=== PATIENT | female | born 1940 | race Caucasian/White ===

== ENCOUNTER → 2016-04-25 | Outpatient (CLI) | payer OTHER ==
[~2016-04-25] MED LIST: AML/5 PO; CHOL100010 PO; LOSA1TAB38 PO; NIFE90TA34 PO; TAMO20TA47 PO; Tumeric PO
[2016-04-25 12:44] VITALS: BP 130/75; PULSE 68; TEMP 36.9; O2SAT 97
--- NOTE | 2016-04-25 14:39 | Radiation Oncology Follow-Up ---
Radiation Oncology Follow-Up Date of Visit Apr 25, 2016. Reason For Visit Annual follow-up Radiation Completion Date 09/21/13 Diagnosis (1) Breast cancer Status: Resolved Onset Date: 05/12/2013 Histology Subtype: ductal Stage: ll Permanent Comment: Abnormal mammogram 05/01/2013 left breast Status post ultrasound-guided biopsies 05/12/2013 revealing invasive carcinoma Estrogen receptor positive, progesterone receptor positive, HER-2/larry negative Status post partial mastectomy and sentinel lymph node biopsy 06/08/2013 Infiltrating ductal carcinoma stage pT1c pN1M0 Status post completion of radiation therapy 09/21/2013 received 6120 cGy Last Edited By: Yasmeen Knapp on Apr 26, 2015 15:45 Interim History She's been doing well over this past year. She denies any changes or breast. She has noticed no masses or tenderness no change of the axilla. She is up-to- date on mammography. She is followed by Dr. Mireles. She has a history of a discharge from the nipple. This has been analyzed with cytology and there were no malignant cells. This is not changed over the past year. Her appetite is good and weight is stable she had a mammogram 06/08/2015. This showed stable mammogram with no specific evidence of malignancy. BI-RADS Category 2. Allergies Coded Allergies: Sulfa Drugs (Verified Allergy, Mild, TOLERATES LASIX, 08/19/14) Statins (Unverified Allergy, Unknown, body aches, 08/19/14) Home Medications Scheduled Amiloride HCl (Amiloride HCl), 2 TABS PO QAM Amiloride HCl (Amiloride HCl), 5 MG PO QPM Cholecalciferol (Vitamin D), 1,000 INTER.UNIT PO DAILY Losartan Potassium (Cozaar), 100 MG PO DAILY Nifedipine (Nifedipine Er), 1 TAB PO DAILY Tamoxifen (Nolvadex), 20 MG PO DAILY [Tumeric], 2 TAB PO DAILY Review of Systems Gastrointestinal: Symptoms: WNL, Rectal Bleeding GI Comments: Constipation manageable at home;Known hemorhroid-spotting Oral: Symptoms: No Problems Respiratory: Symptoms: Dry Cough Other Respiratory: Dry cough every once in awhile; Urinary: Symptoms: WNL Skin: Symptoms: No Problems Breast: Right Upper Arm Measurement: 36.0 Right Mid Arm Measurement: 29.5 Right Wrist Measurement: 18.5 Left Upper Arm Measurement: 34.0 Left Mid Arm Measurement: 28.0 Left Wrist Measurement: 17.5 Arm Dominence: Right Physical Exam Vital Signs Date Time Temp Pulse Resp B/P Pulse Ox O2 Delivery O2 Flow Rate FiO2 04/25/16 12:44 36.9 68 12 130/75 97 Fatigue: None General Appearance: no apparent distress Eyes: normal inspection, EOMI ENT: normal ENT inspection, hearing grossly normal Neck: no adenopathy, thyroid normal Respiratory/Chest: lungs clear, no respiratory distress, no accessory muscle use Breast: Breast examination reveals well-healed incisions of the left breast. There are no masses or tenderness and no axillary adenopathy. There is slight telangiectasia. Using the [place] score cosmesis she has a good outcome. There is a mild indentation due to postoperative deficit in the central portion of the incision. There are no nipple changes. There is no discharge from the nipple currently. The right breast showed no masses or tenderness and no axillary adenopathy. Cardiovascular: regular rate, rhythm, no gallop, + systolic murmur (03/09 at the mitral area) Abdomen: non tender, soft, no organomegaly Extremities: no pedal edema Neurologic/Psychiatric: no motor/sensory deficits, alert, normal mood/affect Skin: warm/dry Lymphatic: no adenopathy Additional Studies Mammogram as reviewed above. Assessment & Plan Plan: Continue annual mammography. Stated that her next mammogram is scheduled for May as well as appointment with Dr. Mireles. I reviewed with her that her last mammogram was 06/08/2015. Her next mammogram therefore should be after June 07. She is going to check into the scheduling of the mammogram and her appointment with Dr. Mireles's office to ensure that her insurance will cover the test. She is also going to be seeing Dr. John Dan and establish with him with him in May. She stated that on her last visit with her PCP she had gotten information that she had some valvular changes that she was unaware of. She is going to review this with Dr. Dan at her visit in May. Total Time In Follow-Up I spent 20 minutes speaking to the patient performing examination. I spent 15 minutes reviewing information in completing this note. Copy To Abdoul Mireles M.D.; Guillard, John,M.D. Problem Qualifiers (1) Breast cancer: Breast location: upper outer quadrant of breast Patient sex: female Laterality: left Qualified Codes: C50.412 - Malignant neoplasm of upper- outer quadrant of left female breast
== END | disposition home or self-care (01) ==
LOC: C.ONC 12:23
PROVIDERS: ATTEND Radiology Radiation Oncology
DX: Z08 Encounter for follow-up examination after completed treatment for malignant neoplasm (principal); Z92.3 Personal history of irradiation; Z85.3 Personal history of malignant neoplasm of breast

== ENCOUNTER → 2016-07-04 | Outpatient (CLI) | payer OTHER ==
[~2016-07-04] MED LIST changes: -TAMO20TA47 PO; +TAMO20TA9 PO
--- NOTE | 2016-07-04 12:57 | DIAGNOSTIC IMAGING REPORT ---
CHEST 2 VIEWS ROUTINE CLINICAL HISTORY: Cough. COMPARISON STUDY: Chest radiograph August 12, 2007. FINDINGS: Left breast surgical clips are noted. No pneumothorax or pleural effusion is identified. There is no consolidation to suggest pneumonia. Borderline cardiomegaly is unchanged. There is no evidence of pulmonary edema. IMPRESSION: No acute cardiopulmonary findings. Electronically signed by: Daniel Shafer M.D. 07/04/2016 12:56 PM Dictated Date/Time: 07/04/2016 12:55 PM
== END | disposition home or self-care (01) ==
LOC: C.RADBC 12:34
PROVIDERS: ATTEND Internal Medicine
DX: R05 Cough (principal)

== ENCOUNTER → 2017-04-30 | Outpatient (CLI) | payer OTHER ==
[2017-04-30 12:43] VITALS: BP 144/82; PULSE 65; TEMP 36.7; O2SAT 95
--- NOTE | 2017-04-30 14:07 | Radiation Oncology Follow-Up ---
Radiation Oncology Follow-Up Date of Visit Apr 30, 2017. Reason For Visit Annual follow-up Radiation Completion Date 09/21/13 Diagnosis (1) Breast cancer Status: Resolved Onset Date: 05/12/2013 Histology Subtype: Ductal Stage: ll Permanent Comment: Abnormal mammogram 05/01/2013 left breast Status post ultrasound-guided biopsies 05/12/2013 revealing invasive carcinoma Estrogen receptor positive, progesterone receptor positive, HER-2/larry negative Status post partial mastectomy and sentinel lymph node biopsy 06/08/2013 Infiltrating ductal carcinoma stage pT1c pN1M0 Status post completion of radiation therapy 09/21/2013 received 6120 cGy Last Edited By: Yasmeen Knapp on Apr 26, 2015 15:45 Interim History She has been doing well over this past year. She has noted no changes to her breasts. She has noted no masses and no change of the axilla. She does have intermittent pain of the left lateral rib area. She has had this for many years. This especially occurred when she leans forward and stretches her arm outward. She has had a history of previous rib fractures. She can have a pain level up to 5. This is intermittent and does not persist. She does not require any [id number] pain medication to relieve this discomfort. Allergies Coded Allergies: Sulfa Drugs (Verified Allergy, Mild, TOLERATES LASIX, 08/19/14) Statins (Unverified Allergy, Unknown, body aches, 08/19/14) Hydrochlorothiazide (Verified Adverse Reaction, Mild, Itchy Rash , 04/30/17 ) Home Medications Scheduled Amiloride HCl (Amiloride HCl), 2 TABS PO QAM Amiloride HCl (Amiloride HCl), 5 MG PO QPM Cholecalciferol (Vitamin D), 1,000 INTER.UNIT PO DAILY Losartan Potassium (Cozaar), 100 MG PO DAILY Nifedipine (Nifedipine Er), 1 TAB PO DAILY Tamoxifen (Nolvadex), 20 MG PO DAILY [Tumeric], 2 TAB PO DAILY Review of Systems Gastrointestinal: Symptoms: WNL GI Comments: Constipation from HCTZ - improving since stopped Oral: Symptoms: No Problems Respiratory: Symptoms: WNL Other Respiratory: Dry cough every once in awhile; Urinary: Symptoms: WNL Skin: Symptoms: No Problems Breast: Right Upper Arm Measurement: 33.7 Right Mid Arm Measurement: 29.0 Right Wrist Measurement: 18.2 Left Upper Arm Measurement: 33.5 Left Mid Arm Measurement: 27.6 Left Wrist Measurement: 17.7 Arm Dominence: Right Physical Exam Vital Signs Date Time Temp Pulse Resp B/P (MAP) Pulse Ox O2 Delivery O2 Flow Rate FiO2 04/30/17 12:43 36.7 65 18 144/82 95 Fatigue: None General Appearance: no apparent distress Eyes: normal inspection, EOMI ENT: normal ENT inspection, hearing grossly normal Neck: no adenopathy, thyroid normal Respiratory/Chest: lungs clear, no respiratory distress, no accessory muscle use Breast: Breast examination reveals well-healed incisions of the left breast. There are no masses. She has mild telangiectasia in the area of the incision. There is very slight tenderness of the left lateral chest along the mid axillary line. There are no masses in this area. There is no erythema or edema. There are no masses of the breast. She has no skin retractions or nipple changes. Using the [place] score cosmesis she has an excellent outcome. The right breast showed no masses or tenderness and no axillary adenopathy. Cardiovascular: regular rate, rhythm, no gallop, no murmur Extremities: no pedal edema Neurologic/Psychiatric: no motor/sensory deficits, alert, normal mood/affect Skin: warm/dry Pain Management Patient Reports Pain: Yes Initial Pain Intensity: 5.0 Pain Management Plan This pain was reviewed see history of present illness. Laboratory Laboratory Results: not applicable Pathology Pathology Results: not applicable Imaging Imaging Studies: were reviewed, and pertinent findings noted below Imaging Comments She had a mammogram at [facility] September 11, 2016. There is no evidence of malignancy. He diagnostic mammogram in 12 months was recommended. This was given a BI-RADS Category 2. Assessment & Plan She had previously followed with Dr. Mireles. She plans to have her mammogram scheduled through Dr. Dan's office. We asked to return to our office in 1 year. She may call if she has any questions or concerns. We discussed stretching exercises to help with the occasional discomfort of the chest wall. She will review this further with Dr. Dan if the pain becomes more persistent. Total Time In Follow-Up I spent 20 minutes speaking to the patient and performing examination. I spent 15 minutes reviewing information and completing this note. Copy To John Dan M.D.
== END | disposition home or self-care (01) ==
LOC: C.ONC 12:31
PROVIDERS: ATTEND Physician Assistant Medical
DX: Z08 Encounter for follow-up examination after completed treatment for malignant neoplasm (principal); Z92.3 Personal history of irradiation; Z85.3 Personal history of malignant neoplasm of breast

== ENCOUNTER → 2017-10-16 | Outpatient (CLI) | payer OTHER ==
[2017-10-16 13:06] LABS: BASO % 0.7 %; BASO ABS # 0.05 K/uL (0-0.2); EOS % 4.2 %; EOS ABS # 0.31 K/uL (0-0.5); HEMATOCRIT 41.3 % (37-47); HEMOGLOBIN 13.9 g/dL (12.0-16.0); IG# 0.11 K/uL (0.00-0.02); LYMPH % 24.2 %; LYMPH ABS # 1.78 K/uL (1.2-3.4); MEAN CORPUSCULAR HGB CONC 33.7 g/dl (32-36); MEAN PLATELET VOLUME 10.3 fL (7.4-10.4); MONO % 5.3 %; MONO ABS # 0.39 K/uL (0.11-0.59); NEUT % 64.1 %; NEUT ABS # 4.72 K/uL (1.4-6.5); PLATELET COUNT 213 K/uL (130-400); RED CELL DISTRIBUTION WIDTH CV 14.2 % (11.5-14.5); RED CELL DISTRIBUTION WIDTH SD 46.6 fL (36.4-46.3); WHITE BLOOD COUNT 7.36 K/uL (4.8-10.8)
[2017-10-16 13:45] LABS: ALBUMIN 3.9 gm/dl (3.4-5.0); ALKALINE PHOSPHATASE 66 U/L (45-117); ALT/SGPT 47 U/L (12-78); AST/SGOT 31 U/L (15-37); BLOOD UREA NITROGEN 24 mg/dl (7-18); CALCIUM 9.3 mg/dl (8.5-10.1); CARBON DIOXIDE 23 mmol/L (21-32); CHOLESTEROL 180 mg/dl (0-200); CREATININE 1.01 mg/dl (0.60-1.20); GLUCOSE 144 mg/dl (70-99); LDL CHOLESTEROL CALCULATED 67 mg/dl; POTASSIUM 4.1 mmol/L (3.5-5.1); SODIUM 139 mmol/L (136-145); TOTAL PROTEIN 7.5 gm/dl (6.4-8.2)
== END | disposition home or self-care (01) ==
LOC: C.LABBC 09:48
PROVIDERS: ATTEND Internal Medicine
DX: I12.9 Hypertensive chronic kidney disease with stage 1 through stage 4 chronic kidney disease, or unspecified chronic kidney disease (principal); E78.5 Hyperlipidemia, unspecified; I34.0 Nonrheumatic mitral (valve) insufficiency; N18.2 Chronic kidney disease, stage 2 (mild); C50.212 Malignant neoplasm of upper-inner quadrant of left female breast; E55.9 Vitamin D deficiency, unspecified

== ENCOUNTER → 2017-10-24 | Outpatient (CLI) | payer OTHER ==
[2017-10-25 05:56] LABS: HEMOGLOBIN A1C 5.6 % (4.5-5.6)
== END | disposition home or self-care (01) ==
LOC: C.LABBC 13:48
PROVIDERS: ATTEND Internal Medicine
DX: R73.09 Other abnormal glucose (principal)

== ENCOUNTER 2018-09-09 02:07 | Inpatient (IN) ==
[2018-09-09] MEDS ORDERED: dilTIAZem HCl 5 MG/ML 5 ML VIAL IV STA ×2 (02:19→03:13)
[2018-09-09] MEDS ORDERED: SODIUM CHLORIDE 0.9% 1000ML 1,000 ML IV SCH (02:30)
[2018-09-09 02:34] LABS: Basophils # (auto) 0.02 K/uL (0-0.2); Basophils % (auto) 0.2 %; Eosinophils # (auto) 0.28 K/uL (0-0.5); Eosinophils % (auto) 3.3 %; Hematocrit (blood only) 42.9 % (37-47); Hemoglobin 14.7 g/dL (12.0-16.0); Immature Granulocytes # (auto) 0.02 K/uL (0.00-0.02); Immature Granulocytes % (auto) 0.2 %; Lymphocytes # (auto) 3.34 K/uL (1.2-3.4); Lymphocytes % (auto) 38.8 %; Mean Corpuscular Hgb Conc 34.3 g/dL (32-36); Mean Corpuscular Volume 88.5 fL (80-100); Mean Platelet Volume 9.7 fL (7.4-10.4); Monocytes # (auto) 0.65 K/uL (0.11-0.59); Monocytes % (auto) 7.5 %; Platelet Count 185 K/uL (130-400); RDW Coefficient of Variation 13.9 % (11.5-14.5); RDW Standard Deviation 45.2 fL (36.4-46.3); Red Blood Count 4.85 M/uL (4.2-5.4); White Blood Count 8.61 K/uL (4.8-10.8)
[2018-09-09 02:45] LABS: INR 1.4 (0.9-1.1); Partial Thromboplastin Ratio 1.5; Partial Thromboplastin Time 40.4 Seconds (21.0-31.0); Prothrombin Time 14.1 Seconds (9.0-12.0)
[2018-09-09 02:57] LABS: Alanine Aminotransferase 40 U/L (12-78); Albumin Level 3.9 gm/dl (3.4-5.0); Aspartate Aminotransferase 25 U/L (15-37); BUN Creatinine Ratio 18.1 (10-20); Blood Urea Nitrogen 16 mg/dl (7-18); Calcium 9.3 mg/dl (8.5-10.1); Carbon Dioxide 25 mmol/L (21-32); Chloride 108 mmol/L (98-107); Creatinine Clr Calc Pharmacy 58.8 ml/min; Est GFR (Non-African American) 63.8; Glucose 101 mg/dl (70-99); Magnesium 2.1 mg/dl (1.8-2.4); Potassium 3.4 mmol/L (3.5-5.1); Sodium 144 mmol/L (136-145)
[2018-09-09 03:08] LABS: Alkaline Phosphatase 105 U/L (45-117); Bilirubin,Total 0.2 mg/dl (0.2-1); Total Protein 7.9 gm/dl (6.4-8.2); Troponin I < 0.015 ng/ml (0-0.045)
[2018-09-09 03:20] LABS: T4 Free Thyroxine 1.03 ng/dl (0.8-1.6)
[2018-09-09 03:51] LABS: Appearance Urine Clear (Clear); Bacteria Urine Automated Negative (Negative); Bilirubin Urine Negative (Negative); Blood Urine 1+ (Negative); Cast Urine Automated 0 /lpf (0-5); Color Urine Yellow; Glucose Urine UA Negative (Negative); Ketones Urine Negative (Negative); Leukocyte Esterase Urine Negative (Negative); Nitrite Urine Negative (Negative); Protein Urine 2+ (Negative); RBC Urine Automated 0-4 /hpf (0-4); Specific Gravity Urine 1.013 (1.000-1.030); Urobilinogen Urine Negative (Negative); pH Urine 6.5 (4.5-7.5)
[2018-09-09] MEDS ORDERED: POTASSIUM CHLORIDE 10 MEQ TABCR PO STA (04:28)
--- NOTE | 2018-09-09 04:29 | Emergency Department Note ---
Entered by Ricarda Smith acting as a scribe for Bradley Mike DO History of Present Illness General Chief complaint: Cardiac Assessment Stated complaint: A FIB Source: patient History of Present Illness Onset (ago): hour(s) 1 Location: chest Severity: similar to prior episodes Pain Consistency: + other (Sudden) Quality: + other (Palpitations) Associated symptoms: + headaches; no chest pain, no loss of appetite and no shortness of breath Treatments prior to arrival: none The patient is a 77 year old female presenting to the Emergency Department complaining of sudden palpitations starting 1 hour ago. The patient reports that she woke up from her sleep, went to the bathroom and then felt herself go into A-fib. She states that she is currently light headed. She explains that she has experienced these symptoms before in December of 2017. She notes that at that time she saw Dr. Escoto French Folding Machine Operator but has not seen him since. She adds that she currently takes no medications to control her A-fib but is on Xarelto. The patient reports that she has been taking her prescribed medications regularly. She states that she has not seen Dr. Dan PCP since March of 2018. 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 She denies chest pain, shortness of breath, loss of appetite, recent medication changes and use of beta blockers. Home Medications Home Medications Medication Instructions Recorded Confirmed Type amiloride 5 mg PO DAILY 11/12/17 09/09/18 History cholecalciferol (vitamin D3) 1,000 unit PO DAILY 11/12/17 09/09/18 History losartan 100 mg PO DAILY 11/12/17 09/09/18 History nifedipine 90 mg PO DAILY 11/12/17 09/09/18 History tamoxifen 20 mg PO DAILY 11/12/17 09/09/18 History coenzyme Q10 100 mg capsule 100 mg PO BID cap 08/08/18 09/09/18 History rivaroxaban 20 mg tablet 20 mg PO DAILY #90 tab 08/08/18 09/09/18 History Allergies Allergy/AdvReac Type Severity Reaction Status Date / Time Sulfa (Sulfonamide Allergy Mild TOLERATES Verified 09/09/18 03:59 Antibiotics) LASIX [id number] Reductase Allergy Unknown body aches Unverified 09/09/18 03:59 Inhibitor VIET Inhibitors Allergy Cough Verified 09/09/18 03:59 atorvastatin Allergy Myalgia Verified 09/09/18 03:59 doxazosin Allergy Unknown Verified 09/09/18 03:59 doxycycline Allergy Hives Verified 09/09/18 03:59 metoprolol Allergy Rash Verified 09/09/18 03:59 hydrochlorothiazide AdvReac Mild Itchy Rash Verified 09/09/18 03:59 Past Med/Surg History Medical History Vitamin D deficiency (Acute) Moderate mitral regurgitation (Acute) 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 (Acute) Hyperlipidemia (Acute) Elevated LFTs (Acute) Atrial flutter, paroxysmal (Acute) Arthritis of multiple sites (Acute) Abnormal glucose measurement (Acute) AF (paroxysmal atrial fibrillation) (Acute) DJD (degenerative joint disease) (Chronic) Hypercortisolism (Acute) Hypercholesteremia (Acute) Hypertension (Chronic) Valvular disease (Chronic) CKD (chronic kidney disease) stage 2, GFR 60-89 ml/min (Chronic) Breast cancer (Resolved 05/12/13) "Abnormal mammogram 05/01/2013 left breast Status post ultrasound-guided biopsies 05/12/2013 revealing invasive carcinoma Estrogen receptor positive, progesterone receptor positive, HER-2/larry negati ve Status post partial mastectomy and sentinel lymph node biopsy 06/08/2013 Infiltrating ductal carcinoma stage pT1c pN1M0 Status post completion of radiation therapy 09/21/2013 received 6120 cGy " Lyme disease (Resolved) DJD (degenerative joint disease) (Acute) Neck pain (Acute) Surgical History H/O parathyroidectomy (Resolved) H/O partial mastectomy (Acute) Family History Uncle Colon cancer Father Myocardial infarction Cardiac disorder Hypertension Mother Anxiety Depression Sister Kidney disease Hyperthyroidism Social History Preferred Language: Slovenian Feels Safe at Home: Yes Smoking Status: Never smoker Review of Systems See HPI for pertinent positives & negatives. and A total of 10 systems reviewed and were otherwise negative Physical Exam Vital Signs Vital Signs - 24 hr 09/09/18 02:09 09/09/18 02:19 09/09/18 02:36 Temperature 36.7 C Temperature Source Oral Sepsis Recent Fever Within 48 Hours No Sepsis New/Unexplained Change in Mental Status No Sepsis Action Taken by Nursing No Action Required Pulse Rate 143 H 150 H 137 H Pulse Rate [Bilateral] Pulse Rate from SpO2 Sensor 145 H 119 H Pulse Rhythm Regular Pulse Rhythm [Bilateral] Pulse Strength Normal Respiratory Rate 18 20 17 Respiratory Effort / Characteristics Non-Labored Spontaneous Respiratory Depth Normal Respiratory Pattern Blood Pressure 135/91 161/106 H 140/79 Blood Pressure [Right Arm] Blood Pressure Mean 105 124 99 Blood Pressure Mean [Right Arm] Blood Pressure Position Sitting Blood Pressure Position [Right Arm] Pulse Oximetry 96 97 97 Oxygen Delivery Method Room Air 09/09/18 02:37 09/09/18 03:00 09/09/18 03:37 Temperature Temperature Source Sepsis Recent Fever Within 48 Hours Sepsis New/Unexplained Change in Mental Status Sepsis Action Taken by Nursing Pulse Rate Pulse Rate [Bilateral] 128 H 98 H Pulse Rate from SpO2 Sensor Pulse Rhythm Pulse Rhythm [Bilateral] Irregular Irregular Pulse Strength Respiratory Rate 19 Respiratory Effort / Characteristics Non-Labored Spontaneous Respiratory Depth Normal Respiratory Pattern Regular Blood Pressure Blood Pressure [Right Arm] 103/76 Blood Pressure Mean Blood Pressure Mean [Right Arm] 85 Blood Pressure Position Blood Pressure Position [Right Arm] Sitting Pulse Oximetry 97 99 Oxygen Delivery Method Room Air Room Air GENERAL: Patient is awake and alert. Patient is very anxious and uncomfortable appearing. EYES: The conjunctivae are clear. The pupils are round and reactive. EARS, NOSE, MOUTH AND THROAT: The nose is without any evidence of any deformity. Mucous membranes are moist.Tongue is midline NECK: The neck is nontender and supple. RESPIRATORY: Normal respiratory effort is noted. There is no evidence of wheezing rhonchi or rales to auscultation. CARDIOVASCULAR: Tachycardic rate and irregular rhythm noted. There no murmurs rubs or gallops normal S1 normal S2. GASTROINTESTINAL: The abdomen is soft. Bowel sounds are present in all quadrants. Abdomen is nontender. MUSCULOSKELETAL/EXTREMITIES: There is no evidence of gross deformity. Full range of motion is noted in the hips and shoulders. SKIN: There is no obvious evidence of any rash. There are no petechiae, pallor or cyanosis noted. NEUROLOGIC: Patient is awake alert and oriented x3. Course 0217: The patient was evaluated in room B9, and a complete history and physical examination were performed. 0334: I reevaluated the patient at this time. We discussed her disposition. 0400: I discussed the patient's case with Dr. John NEIL hospitalist. He will evaluate the patient for further management. Consultations Consultation #1: I discussed the patient's case with Dr. John NEIL hospitalist. He will evaluate the patient for further management. Time: 04:00 Administered Medications Discontinued Medications Diltiazem HCl (Cardizem) 10 mg IV NOW STA Stop: 09/09/18 02:20 Last Admin: 09/09/18 02:30 Dose: 10 mg Documented by: [id number] Cosigned by: [id number] Diltiazem HCl (Cardizem) 10 mg IV NOW STA Stop: 09/09/18 03:14 Last Admin: 09/09/18 03:21 Dose: 10 mg Documented by: [id number] Cosigned by: [id number] Sodium Chloride (Nss 1000ml) 1,000 mls @ 999 mls/hr IV .Q1H1M FRANCISCO Stop: 09/09/18 03:30 Last Infusion: 09/09/18 03:38 Dose: 0 mls/hr Documented by: [id number] Admin: 09/09/18 02:30 Dose: 999 mls/hr Documented by: [id number] Medical Decision Making Differential Diagnosis Differential diagnosis includes etiologies such as premature contractions, electrolyte abnormality, cardiac dysrhythmia, thyroid dysfunction, pulmonary embolism, infection, gastrointestinal, as well as others were entertained. Medical Records Attestation: I reviewed the patient's medical records. Home Medications Current Medication List: was personally reviewed by me Laboratory Data Attestation: I reviewed the patient's lab results. Result diagrams: 09/09/18 02:26 09/09/18 02:26 Lab Results 09/09/18 09/09/18 09/09/18 Range/Units 02:26 02:26 02:26 WBC 8.61 (4.8-10.8) K/uL RBC 4.85 (4.2-5.4) M/uL Hgb 14.7 (12.0-16.0) g/dL Hct 42.9 (37-47) % MCV 88.5 (80-100) fL MCH 30.3 (25-34) pg MCHC 34.3 (32-36) g/dL RDW Std Deviation 45.2 (36.4-46.3) fL RDW Coeff of Beverley 13.9 (11.5-14.5) % Plt Count 185 (130-400) K/uL MPV 9.7 (7.4-10.4) fL Immature Gran % (Auto) 0.2 % Neut % (Auto) 50.0 % Lymph % (Auto) 38.8 % Dane % (Auto) 7.5 % Eos % (Auto) 3.3 % Baso % (Auto) 0.2 % Immature Gran # (Auto) 0.02 (0.00-0.02) K/uL Neut # (Auto) 4.30 (1.4-6.5) K/uL Lymph # (Auto) 3.34 (1.2-3.4) K/uL Dane # (Auto) 0.65 H (0.11-0.59) K/uL Eos # (Auto) 0.28 (0-0.5) K/uL Baso # (Auto) 0.02 (0-0.2) K/uL PT 14.1 H (9.0-12.0) Seconds INR 1.4 H (0.9-1.1) APTT 40.4 H (21.0-31.0) Seconds PTT Ratio 1.5 Sodium 144 (136-145) mmol/L Potassium 3.4 L (3.5-5.1) mmol/L Chloride 108 H (98-107) mmol/L Carbon Dioxide 25 (21-32) mmol/L Anion Gap 11.0 (3-11) BUN 16 (7-18) mg/dl Creatinine 0.88 (0.6-1.2) mg/dl Est Cr Clr Drug Dosing 58.8 ml/min Est GFR ( Amer) 74.0 Est GFR (Non-Af Amer) 63.8 BUN/Creatinine Ratio 18.1 (10-20) Glucose 101 H (70-99) mg/dl Calcium 9.3 (8.5-10.1) mg/dl Magnesium 2.1 (1.8-2.4) mg/dl Total Bilirubin 0.2 (0.2-1) mg/dl AST 25 (15-37) U/L ALT 40 (12-78) U/L Alkaline Phosphatase 105 (45-117) U/L Troponin I < 0.015 (0-0.045) ng/ml Total Protein 7.9 (6.4-8.2) gm/dl Albumin 3.9 (3.4-5.0) gm/dl Globulin 4.0 (2.5-4.0) gm/dl Albumin/Globulin Ratio 1.0 (0.9-2) TSH 5.350 H (0.300-4.500) uIu/ml Free T4 1.03 (0.8-1.6) ng/dl Urine Color Urine Appearance (Clear) Urine pH (4.5-7.5) Ur Specific [place] (1.000-1.030) Urine Protein (Negative) Urine Glucose (UA) (Negative) Urine Ketones (Negative) Urine Blood (Negative) Urine Nitrite (Negative) Urine Bilirubin (Negative) Urine Urobilinogen (Negative) Ur Leukocyte Esterase (Negative) Urine WBC (Auto) (0-5) /hpf Urine RBC (Auto) (0-4) /hpf U Hyaline Cast (Auto) (0-5) /lpf U Epithel Cells (Auto) (0-5) /lpf Urine Bacteria (Auto) (Negative) 09/09/18 Range/Units 03:16 WBC (4.8-10.8) K/uL RBC (4.2-5.4) M/uL Hgb (12.0-16.0) g/dL Hct (37-47) % MCV (80-100) fL MCH (25-34) pg MCHC (32-36) g/dL RDW Std Deviation (36.4-46.3) fL RDW Coeff of Beverley (11.5-14.5) % Plt Count (130-400) K/uL MPV (7.4-10.4) fL Immature Gran % (Auto) % Neut % (Auto) % Lymph % (Auto) % Dane % (Auto) % Eos % (Auto) % Baso % (Auto) % Immature Gran # (Auto) (0.00-0.02) K/uL Neut # (Auto) (1.4-6.5) K/uL Lymph # (Auto) (1.2-3.4) K/uL Dane # (Auto) (0.11-0.59) K/uL Eos # (Auto) (0-0.5) K/uL Baso # (Auto) (0-0.2) K/uL PT (9.0-12.0) Seconds INR (0.9-1.1) APTT (21.0-31.0) Seconds PTT Ratio Sodium (136-145) mmol/L Potassium (3.5-5.1) mmol/L Chloride (98-107) mmol/L Carbon Dioxide (21-32) mmol/L Anion Gap (3-11) BUN (7-18) mg/dl Creatinine (0.6-1.2) mg/dl Est Cr Clr Drug Dosing ml/min Est GFR ( Amer) Est GFR (Non-Af Amer) BUN/Creatinine Ratio (10-20) Glucose (70-99) mg/dl Calcium (8.5-10.1) mg/dl Magnesium (1.8-2.4) mg/dl Total Bilirubin (0.2-1) mg/dl AST (15-37) U/L ALT (12-78) U/L Alkaline Phosphatase (45-117) U/L Troponin I (0-0.045) ng/ml Total Protein (6.4-8.2) gm/dl Albumin (3.4-5.0) gm/dl Globulin (2.5-4.0) gm/dl Albumin/Globulin Ratio (0.9-2) TSH (0.300-4.500) uIu/ml Free T4 (0.8-1.6) ng/dl Urine Color Yellow Urine Appearance Clear (Clear) Urine pH 6.5 (4.5-7.5) Ur Specific [place] 1.013 (1.000-1.030) Urine Protein 2+ H (Negative) Urine Glucose (UA) Negative (Negative) Urine Ketones Negative (Negative) Urine Blood 1+ H (Negative) Urine Nitrite Negative (Negative) Urine Bilirubin Negative (Negative) Urine Urobilinogen Negative (Negative) Ur Leukocyte Esterase Negative (Negative) Urine WBC (Auto) 1-5 (0-5) /hpf Urine RBC (Auto) 0-4 (0-4) /hpf U Hyaline Cast (Auto) 0 (0-5) /lpf U Epithel Cells (Auto) 5-10 H (0-5) /lpf Urine Bacteria (Auto) Negative (Negative) Imaging Data Attestation: I personally reviewed and interpreted this imaging study as follows: My Impression: XR Chest 1V portable: Heart size is normal. No definite infiltrate. No free air. No acute disease. No significant change from 11/12/17. ECG Data Attestation: I personally reviewed and interpreted this ECG as follows: Indication: palpitations Rate (beats per minute): 143 Rhythm: atrial fibrillation (with RVR) Findings: + ST depression (Diffusely); no PVC Comparison ECG Date: from (11/12/17) Change: no significant change (Similar tracing noted.) Blood Pressure Blood Pressure Findings: Normal blood pressure Blood Pressure Disposition: further management by hospitalist MDM Narrative The patient is a 77-year-old female who presented to the emergency department for an evaluation of palpitations. The patient has a history of paroxysmal atrial fibrillation. She felt that she went into atrial fibrillation last evening. The patient was treated with IV fluids as well as IV Cardizem. She was reevaluated multiple times. She was also treated with oral potassium replacement. I discussed the patient's laboratory and radiographic studies with her. She continued to be in atrial fibrillation with rapid ventricular response but she was significantly improved. I discussed her condition with the on-call [facility] hospitalist. They have agreed to evaluate patient in the emergency department for further management and disposition. Impression & Plan Atrial fibrillation with RVR, Palpitation, Acute hypokalemia Critical Care Time Critical Care Time: Yes Total Critical Care Time: 45 I have personally spent greater than 45 minutes of critical care time in the direct management of this patient. This includes bedside care, interpretation of diagnostic studies, and testing, discussion with consultants, patient, and family members, and other required patient management activities. This 45 minutes is in excess of all separately billable procedures. Discharge Plan Visit Data Chief Complaint: Cardiac Assessment Stated Complaint: A FIB ED Provider: Bradley Mike Discharge Problem: Atrial fibrillation with RVR, Palpitation, Acute hypokalemia Patient Disposition: Being Evaluated by Hospitalist Forms Stand Alone Forms: My [facility] Prescriptions Prescriptions: No Action Xarelto 20 mg tablet 20 mg PO DAILY Qty: 90 RF: 0 coenzyme Q10 100 mg capsule 100 mg PO BID RF: 0 nifedipine 90 mg Tablet Extended Release 90 mg PO DAILY RF: 0 amiloride 5 mg Tablet 5 mg PO DAILY RF: 0 losartan 100 mg Tablet 100 mg PO DAILY RF: 0 tamoxifen 20 mg Tablet 20 mg PO DAILY RF: 0 cholecalciferol (vitamin D3) 1,000 unit Tablet 1,000 unit PO DAILY RF: 0 Referrals Referrals: John Dan MD [Primary Care Provider] - The scribe's documentation has been prepared under my direction and personally reviewed by me in its entirety. I confirm that the note above accurately reflects all work, treatment, procedures, and medical decision making performed by me.
[2018-09-09] MEDS ORDERED: dilTIAZem HCL 30 MG TAB PO STA (05:46)
--- NOTE | 2018-09-09 05:49 | History & Physical Report ---
Date of Service September 09, 2018 Assessment & Plan (1) Atrial fibrillation with RVR: 77-year-old female was admitted on 09 September 2018 for atrial fibrillation with RVR. Atrial fibrillation with RVR: History of same. Is on rivaroxaban. May be due to the stress of multiple financial bills recently. Notes palpitations beginning overnight without any chest pain/discomfort or shortness of breath. - In ED, afebrile, heart rate as high as 150, initially hypertensive, with normal room SpO2. WBC 8. INR 1.4 with normal LFTs. pCXR looks clear [formal rads read pending]. TnI negative. EKG notes atrial fibrillation, rate 143, with ST depressions in V3 through V6. - In ED, treated with diltiazem 10 mg IV x 2. - Will maintain her on Cardizem 30 mg PO QID. Hold her home nifedipine. Recheck EKG and troponin later this morning. Hypokalemia: Admit K 3.4. Given KCl 40 mEq once in the ED. Will re-dose with a second KCl 40 mEq for optimization. Elevated TSH: Admit TSH 5.35, free T4 1.03. No known history of thyroid disease but did have a partial parathyroidectomy (per patient for hypercalcemia) in 2013. Ongoing medical issues: - Hypertension, hyperlipidemia: Continue home losartan and amiloride. Listed allergy to metoprolol, VIET inhibitors, and statins. --- Held her home nifedipine. - Left breast cancer: Continue home tamoxifen. Code status: Full code. Diet: Regular. DVT prophy: Rivaroxaban. PT/OT: Deferred. Disbo: Admit to med telemetry. (2) Hypokalemia: (3) Elevated TSH: (4) Hypertension: (5) Hyperlipidemia: (6) Breast cancer: History of Present Illness Primary Care Provider: John Dan MD 77-year-old female states that when she awoke to use the restroom around 1 AM this morning she had the feeling of chest palpitations. She has a known history of paroxysmal atrial fibrillation and says her last hospital evaluation for this was in December 2017. Previously saw [facility] for this. Denies previous hospitalizations for the same. Says she has been taking her Xarelto as well as blood pressure medications regularly. She says she can feel that her heart is racing but she denies any associated chest pain/pressure or shortness of breath. Otherwise she has no particular acute concerns. When asked what may have caused this, she relates multiple financial stressors. For example, she says that yesterday she received the hospital bill related to her 's back in December. - Past medical history includes paroxysmal atrial fibrillation, hypertension, hyperlipidemia, left breast cancer 2013, aortic valve disease, right eye cataract, Lyme disease. - Past surgical history includes partial mastectomy and sentinel lymph node dissection, parathyroidectomy, appendectomy, tonsil and adenoidectomy, cataract removal, total knee replacement. - Social history includes never smoking, denies alcohol use. , lives at home. Allergies Allergy/AdvReac Type Severity Reaction Status Date / Time Sulfa (Sulfonamide Allergy Mild TOLERATES Verified 09/09/18 03:59 Antibiotics) LASIX [id number] Reductase Allergy Unknown body aches Unverified 09/09/18 03:59 Inhibitor VIET Inhibitors Allergy Cough Verified 09/09/18 03:59 atorvastatin Allergy Myalgia Verified 09/09/18 03:59 doxazosin Allergy Unknown Verified 09/09/18 03:59 doxycycline Allergy Hives Verified 09/09/18 03:59 metoprolol Allergy Rash Verified 09/09/18 03:59 hydrochlorothiazide AdvReac Mild Itchy Rash Verified 09/09/18 03:59 Home Medications Home Medications Medication Instructions Recorded Confirmed Type amiloride 5 mg PO DAILY 11/12/17 09/09/18 History cholecalciferol (vitamin D3) 1,000 unit PO DAILY 11/12/17 09/09/18 History losartan 100 mg PO DAILY 11/12/17 09/09/18 History nifedipine 90 mg PO DAILY 11/12/17 09/09/18 History tamoxifen 20 mg PO DAILY 11/12/17 09/09/18 History coenzyme Q10 100 mg capsule 100 mg PO BID cap 08/08/18 09/09/18 History rivaroxaban 20 mg tablet 20 mg PO DAILY #90 tab 08/08/18 09/09/18 History Past Med/Surg History Medical History Vitamin D deficiency (Acute) 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 (Acute) Hyperlipidemia (Acute) Elevated LFTs (Acute) Atrial flutter, paroxysmal (Acute) Arthritis of multiple sites (Acute) Abnormal glucose measurement (Acute) AF (paroxysmal atrial fibrillation) (Acute) DJD (degenerative joint disease) (Chronic) Hypercortisolism (Acute) Hypercholesteremia (Acute) Hypertension (Chronic) Valvular disease (Chronic) CKD (chronic kidney disease) stage 2, GFR 60-89 ml/min (Chronic) Breast cancer (Resolved 05/12/13) "Abnormal mammogram 05/01/2013 left breast Status post ultrasound-guided biopsies 05/12/2013 revealing invasive carcinoma Estrogen receptor positive, progesterone receptor positive, HER-2/larry negative Status post partial mastectomy and sentinel lymph node biopsy 06/08/2013 Infiltrating ductal carcinoma stage pT1c pN1M0 Status post completion of radiation therapy 09/21/2013 received 6120 cGy " Lyme disease (Resolved) DJD (degenerative joint disease) (Acute) Neck pain (Acute) Surgical History H/O parathyroidectomy (Resolved) H/O partial mastectomy (Acute) Family History Uncle Colon cancer Father Myocardial infarction Cardiac disorder Hypertension Mother Anxiety Depression Sister Kidney disease Hyperthyroidism Social History Preferred Language: Syrian Communication Ability: Effective Beliefs That Will Affect Care: None Current Living Situation: Other Current Living Situation Comment: grandson lives with patient Feels Safe at Home: Yes Smoking Status: Never smoker Hx Alcohol Use: No Hx Substance Use: No Review of Systems Review of Systems: Constitutional: Denies fevers, chills, focal weakness Eyes: Denies any visual loss or diplopia ENT: Denies any ear/nose/throat pain or difficulty speaking or swallowing Respiratory: Denies any dyspnea, cough, hemoptysis Cardiovascular: Denies any chest pain or feeling of edema. Positive palpitations. Gastrointestinal: Denies any abdominal pain, nausea/vomiting/diarrhea Musculoskeletal: Denies any acute extremity pains, myalgias, or focal weakness Skin: Denies any known acute rashes or lesions Neuro: Denies any headache, acute focal weakness or numbness, or difficulties with speech or swallow. Physical Exam Physical Exam: GENERAL: Awake, alert, well-appearing and speaking comfortably, in no acute distress. HENT: Normocephalic, atraumatic. Oropharynx unremarkable. EYES: Normal conjunctiva. Sclera non-icteric. NECK: Inspection normal. Supple and full ROM. No nuchal rigidity. CARDIAC: +S1S2 irregularly irregular and tachycardic, no murmurs. RESPIRATORY: Clear to auscultation. No wheezes or rales. Normal respiratory effort. GI: +BS, soft, non-distended. No tenderness to palpation. No rebound or guarding. EXTREMITIES: No pedal edema or calf tenderness. Moving all extremities naturally and easily. NEURO: No gross neuro deficits. Results & Data Vital Signs (Past 12 Hours) Vital Signs Temp Pulse Pulse Resp BP BP Pulse Ox 09/09/18 03:37 98 H 19 103/76 99 09/09/18 03:00 128 H 09/09/18 02:37 97 09/09/18 02:36 137 H 17 140/79 97 09/09/18 02:19 150 H 20 161/106 H 97 09/09/18 02:09 36.7 C 143 H 18 135/91 96 Laboratory Results 09/09/18 09/09/18 09/09/18 Range/Units 03:16 02:26 02:26 WBC (4.8-10.8) K/uL RBC (4.2-5.4) M/uL Hgb (12.0-16.0) g/dL Hct (37-47) % MCV (80-100) fL MCH (25-34) pg MCHC (32-36) g/dL RDW Std Deviation (36.4-46.3) fL RDW Coeff of Beverley (11.5-14.5) % Plt Count (130-400) K/uL MPV (7.4-10.4) fL Immature Gran % (Auto) % Neut % (Auto) % Lymph % (Auto) % [place] % (Auto) % Eos % (Auto) % Baso % (Auto) % Immature Gran # (Auto) (0.00-0.02) K/uL Neut # (Auto) (1.4-6.5) K/uL Lymph # (Auto) (1.2-3.4) K/uL [place]er # (Auto) (0.11-0.59) K/uL Eos # (Auto) (0-0.5) K/uL Baso # (Auto) (0-0.2) K/uL PT 14.1 H (9.0-12.0) Seconds INR 1.4 H (0.9-1.1) APTT 40.4 H (21.0-31.0) Seconds PTT Ratio 1.5 Sodium 144 (136-145) mmol/L Potassium 3.4 L (3.5-5.1) mmol/L Chloride 108 H (98-107) mmol/L Carbon Dioxide 25 (21-32) mmol/L Anion Gap 11.0 (3-11) BUN 16 (7-18) mg/dl Creatinine 0.88 (0.6-1.2) mg/dl Est Cr Clr Drug Dosing 58.8 ml/min Est GFR ( Amer) 74.0 Est GFR (Non-Af Amer) 63.8 BUN/Creatinine Ratio 18.1 (10-20) Glucose 101 H (70-99) mg/dl Calcium 9.3 (8.5-10.1) mg/dl Magnesium 2.1 (1.8-2.4) mg/dl Total Bilirubin 0.2 (0.2-1) mg/dl AST 25 (15-37) U/L ALT 40 (12-78) U/L Alkaline Phosphatase 105 (45-117) U/L Troponin I < 0.015 (0-0.045) ng/ml Total Protein 7.9 (6.4-8.2) gm/dl Albumin 3.9 (3.4-5.0) gm/dl Globulin 4.0 (2.5-4.0) gm/dl Albumin/Globulin Ratio 1.0 (0.9-2) TSH 5.350 H (0.300-4.500) uIu/ml Free T4 1.03 (0.8-1.6) ng/dl Urine Color Yellow Urine Appearance Clear (Clear) Urine pH 6.5 (4.5-7.5) Ur Specific [place] 1.013 (1.000-1.030) Urine Protein 2+ H (Negative) Urine Glucose (UA) Negative (Negative) Urine Ketones Negative (Negative) Urine Blood 1+ H (Negative) Urine Nitrite Negative (Negative) Urine Bilirubin Negative (Negative) Urine Urobilinogen Negative (Negative) Ur Leukocyte Esterase Negative (Negative) Urine WBC (Auto) 1-5 (0-5) /hpf Urine RBC (Auto) 0-4 (0-4) /hpf U Hyaline Cast (Auto) 0 (0-5) /lpf U Epithel Cells (Auto) 5-10 H (0-5) /lpf Urine Bacteria (Auto) Negative (Negative) 09/09/18 Range/Units 02:26 WBC 8.61 (4.8-10.8) K/uL RBC 4.85 (4.2-5.4) M/uL Hgb 14.7 (12.0-16.0) g/dL Hct 42.9 (37-47) % MCV 88.5 (80-100) fL MCH 30.3 (25-34) pg MCHC 34.3 (32-36) g/dL RDW Std Deviation 45.2 (36.4-46.3) fL RDW Coeff of Beverley 13.9 (11.5-14.5) % Plt Count 185 (130-400) K/uL MPV 9.7 (7.4-10.4) fL Immature Gran % (Auto) 0.2 % Neut % (Auto) 50.0 % Lymph % (Auto) 38.8 % Wagoner % (Auto) 7.5 % Eos % (Auto) 3.3 % Baso % (Auto) 0.2 % Immature Gran # (Auto) 0.02 (0.00-0.02) K/uL Neut # (Auto) 4.30 (1.4-6.5) K/uL Lymph # (Auto) 3.34 (1.2-3.4) K/uL [place]agoner # (Auto) 0.65 H (0.11-0.59) K/uL Eos # (Auto) 0.28 (0-0.5) K/uL Baso # (Auto) 0.02 (0-0.2) K/uL PT (9.0-12.0) Seconds INR (0.9-1.1) APTT (21.0-31.0) Seconds PTT Ratio Sodium (136-145) mmol/L Potassium (3.5-5.1) mmol/L Chloride (98-107) mmol/L Carbon Dioxide (21-32) mmol/L Anion Gap (3-11) BUN (7-18) mg/dl Creatinine (0.6-1.2) mg/dl Est Cr Clr Drug Dosing ml/min Est GFR ( Amer) Est GFR (Non-Af Amer) BUN/Creatinine Ratio (10-20) Glucose (70-99) mg/dl Calcium (8.5-10.1) mg/dl Magnesium (1.8-2.4) mg/dl Total Bilirubin (0.2-1) mg/dl AST (15-37) U/L ALT (12-78) U/L Alkaline Phosphatase (45-117) U/L Troponin I (0-0.045) ng/ml Total Protein (6.4-8.2) gm/dl Albumin (3.4-5.0) gm/dl Globulin (2.5-4.0) gm/dl Albumin/Globulin Ratio (0.9-2) TSH (0.300-4.500) uIu/ml Free T4 (0.8-1.6) ng/dl Urine Color Urine Appearance (Clear) Urine pH (4.5-7.5) Ur Specific [place] (1.000-1.030) Urine Protein (Negative) Urine Glucose (UA) (Negative) Urine Ketones (Negative) Urine Blood (Negative) Urine Nitrite (Negative) Urine Bilirubin (Negative) Urine Urobilinogen (Negative) Ur Leukocyte Esterase (Negative) Urine WBC (Auto) (0-5) /hpf Urine RBC (Auto) (0-4) /hpf U Hyaline Cast (Auto) (0-5) /lpf U Epithel Cells (Auto) (0-5) /lpf Urine Bacteria (Auto) (Negative) Medications Administered Discontinued Medications Diltiazem HCl (Cardizem) 10 mg IV NOW STA Stop: 09/09/18 02:20 Last Admin: 09/09/18 02:30 Dose: 10 mg Documented by: [id number] Cosigned by: [id number] Diltiazem HCl (Cardizem) 10 mg IV NOW STA Stop: 09/09/18 03:14 Last Admin: 09/09/18 03:21 Dose: 10 mg Documented by: [id number] Cosigned by: [id number] Sodium Chloride (Nss 1000ml) 1,000 mls @ 999 mls/hr IV .Q1H1M FRANCISCO Stop: 09/09/18 03:30 Last Infusion: 09/09/18 03:38 Dose: 0 mls/hr Documented by: [id number] Admin: 09/09/18 02:30 Dose: 999 mls/hr Documented by: [id number] Potassium Chloride (Klor-Con M10) 40 meq PO NOW STA Stop: 09/09/18 04:29 Last Admin: 09/09/18 04:45 Dose: 40 meq Documented by: [id number] Code Status & VTE Plan Code Status Full code VTE Prophylaxis Plan VTE Prophylaxis will be ordered: Yes Supervising Physician Co-Signing Physician Notes Attending addendum: I have physically seen this patient, have supervised the medical residents activities, and agree with the H&P unless as otherwise noted. Assessment and Plan: Atrial fibrillation with RVR-- The patient will be admitted to telemetry for serial cardiac enzymes, serial EKG's, cardiac rhythm monitoring and a 2-D echocardiogram with Dopplers. Continue Xarelto. Hold nifedipine. Continue losartan and amiloride. Potassium 3.4 upon admission, give 40 mEq p.o. x2, to get potassium up around 4. Placed on Cardizem 30 mg p.o. now and then 4 times daily. Consult cardiology. Remainder of orders and notations as noted. PG Care Time/CCT Total # of Minutes Spent Total Time Spent with Patient: Total time spent is greater than 50% in coordination of care (as documented) at patient's floor/unit and/or counseling patient: Resident Activity Tracking Resident Involvement: Resident Care Provided Care Provided: Adult Hospital Medicine
[2018-09-09] MEDS ORDERED: ACETAMINOPHEN 325 MG TAB PO PRN (07:03)
[2018-09-09] MEDS ORDERED: POTASSIUM CHLORIDE 10 MEQ TABCR PO ONE (07:15)
[2018-09-09] MEDS ORDERED: dilTIAZem HCL 30 MG TAB PO SCH (07:15)
--- NOTE | 2018-09-09 07:29 | XRay Report ---
XR chest 1V portable HISTORY: weakness COMPARISON: Chest 11/12/2017. FINDINGS: Cardiac silhouette remains borderline enlarged. No new focal lung consolidations to suggest pneumonia. No evidence for pulmonary edema. No pleural effusions. No pneumothorax. IMPRESSION: No significant change compared to the prior study. No acute process. Electronically signed by: Deepak Wade M.D. 09/09/2018 7:28 AM
[2018-09-09] MEDS: dilTIAZem HCL 30 MG TAB PO SCH ×2 (08:29→14:17)
[2018-09-09] MEDS: TAMOXIFEN CITRATE 10 MG TABLET PO SCH (08:29)
[2018-09-09] MEDS: LOSARTAN POTASSIUM 50 MG TAB PO SCH (08:30)
[2018-09-09] MEDS: CHOLECALCIFEROL 1,000 UNITS TAB PO SCH (08:30)
[2018-09-09] MEDS ORDERED: NON-FORMULARY MEDICATION (Coenzyme Q10 100 MG) PO SCH (09:00)
--- NOTE | 2018-09-09 10:52 | Cardiology Consultation ---
Date of Consultation September 09, 2018 Assessment & Plan (1) Atrial flutter with rapid ventricular response: She has been symptomatic with both documented episodes of atrial flutter. She is not unstable and tolerating tachycardia well currently. Agree with using diltiazem to try to improve her heart rate. If her heart rate does not improve with oral diltiazem, can use diltiazem drip. Hopefully she spontaneously converts like she did last year but if she does not convert by tomorrow morning, cardioversion was recommended. We also discussed/considered anti rhythmic therapy and atrial flutter ablation. She would like to think further about ablation or antiarrhythmic therapy and prefers to undergo direct current cardioversion. Consultation for anesthesiology has been placed. Will attempt to schedule this for tomorrow morning if she does not convert in the meantime. Risks and benefits of the procedure were discussed with her. Echocardiogram ordered. We discussed the fact that cardioversion may restore sinus rhythm but for future recurrence, which is likely, long-term planning may be beneficial such as antiarrhythmic therapy versus ablation. She did not tolerate metoprolol in the past due to rash/hives. (2) Hypokalemia: Replete potassium as per primary service. (3) Mitral regurgitation: Non severe mitral regurgitation when last evaluated. Repeating echo as above for atrial flutter. (4) Hypertension: Blood pressure mildly elevated to normotensive. Treatment plan as above. She does have allergies to Prashanth inhibitors, HCTZ, and metoprolol. Disposition: Patient care communicated with Dr. Mason of the primary hospitalist service. Will also communicate with her primary clinical evaluator, Dr. Carlos. Thank you for allowing me to participate in the care of your patient. Please call for any other questions or concerns. Sincerely, Elliott Paredes M.D. History of Present Illness Reason for Consultation: Atrial flutter with rapid ventricular response Requesting Physician: Dr. Mason Attending Physician: Jourdan Mason MD History of Present Illness Ms. Mcguire is a very pleasant 77-year-old female with a history significant for paroxysmal atrial flutter, hypertension, dyslipidemia, and left breast cancer. Her primary clinical evaluator is Dr. Carlos. She was diagnosed initially with atrial flutter in November of 2017 and was placed on metoprolol and Xarelto. Shortly thereafter, she developed a rash with hives which she attributed to metoprolol. She was then placed on diltiazem in place of nifedipine. At some point between November and December of 2017, she converted spontaneously at home to sinus rhythm. She then discontinued taking diltiazem due to elevated blood pressures and restarted nifedipine. At approximately 1:00 a.m. this morning she woke up to use the restroom and noted palpitations. She still feels palpitations while sitting in her hospital bed. It is similar to her prior episode of atrial flutter. She denies chest pain, syncope, near-syncope, shortness of breath, edema, or bleeding such as melena, hematochezia, or hematuria. She denies any recent fevers, chills, nausea, vomiting, or abdominal discomfort. She is compliant with Xarelto and has not missed any doses. She states that she is under a great deal of stress. She has been helping a friend and her friends elderly mother. Also, she just recently received a bill for her hospitalization in December of 2017, which is when he . Review of systems: As above. Review of systems otherwise negative/unremarkable. Social history: She denies tobacco, alcohol, or drug abuse. She lives at home with her grandson. She is a . Family history: Noncontributory for this admission, but her father has history of [place]. Allergies Allergy/AdvReac Type Severity Reaction Status Date / Time Sulfa (Sulfonamide Allergy Mild TOLERATES Verified 09/09/18 03:59 Antibiotics) LASIX Nrpkpey-[id number]-Grq Reductase Allergy Unknown body aches Unverified 09/09/18 03:59 Inhibitor PRASHANTH Inhibitors Allergy Cough Verified 09/09/18 03:59 atorvastatin Allergy Myalgia Verified 09/09/18 03:59 doxazosin Allergy Unknown Verified 09/09/18 03:59 doxycycline Allergy Hives Verified 09/09/18 03:59 metoprolol Allergy Rash Verified 09/09/18 03:59 hydrochlorothiazide AdvReac Mild Itchy Rash Verified 09/09/18 03:59 Home Medications Home Medications Medication Instructions Recorded Confirmed Type amiloride 5 mg PO DAILY 11/12/17 09/09/18 History cholecalciferol (vitamin D3) 1,000 unit PO DAILY 11/12/17 09/09/18 History losartan 100 mg PO DAILY 11/12/17 09/09/18 History nifedipine 90 mg PO DAILY 11/12/17 09/09/18 History tamoxifen 20 mg PO DAILY 11/12/17 09/09/18 History coenzyme Q10 100 mg capsule 100 mg PO BID cap 08/08/18 09/09/18 History rivaroxaban 20 mg tablet 20 mg PO DAILY #90 tab 08/08/18 09/09/18 History Patient History Medical History Vitamin D deficiency (Acute) Moderate mitral regurgitation (Acute) 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 (Acute) Hyperlipidemia (Acute) Elevated LFTs (Acute) Atrial flutter, paroxysmal (Acute) Arthritis of multiple sites (Acute) Abnormal glucose measurement (Acute) AF (paroxysmal atrial fibrillation) (Acute) DJD (degenerative joint disease) (Chronic) Hypercortisolism (Acute) Hypercholesteremia (Acute) Hypertension (Chronic) Valvular disease (Chronic) CKD (chronic kidney disease) stage 2, GFR 60-89 ml/min (Chronic) Breast cancer (Resolved 05/12/13) "Abnormal mammogram 05/01/2013 left breast Status post ultrasound-guided biopsies 05/12/2013 revealing invasive carcinoma Estrogen receptor positive, progesterone receptor positive, HER-2/larry negative Status post partial mastectomy and sentinel lymph node biopsy 06/08/2013 Infiltrating ductal carcinoma stage pT1c pN1M0 Status post completion of radiation therapy 09/21/2013 received 6120 cGy " Lyme disease (Resolved) DJD (degenerative joint disease) (Acute) Neck pain (Acute) Surgical History H/O parathyroidectomy (Resolved) H/O partial mastectomy (Acute) Family History Uncle Colon cancer Father Myocardial infarction Cardiac disorder Hypertension Mother Anxiety Depression Sister Kidney disease Hyperthyroidism Social History Preferred Language: Korean Communication Ability: Effective Beliefs That Will Affect Care: None Current Living Situation: Other Current Living Situation Comment: grandson lives with patient Other Information That Helps Us Care for You: No Feels Safe at Home: Yes Safety Concerns: Feels Safe At This Time Smoking Status: Never smoker Hx Alcohol Use: No Hx Substance Use: No Physical Exam Physical Exam: Gen.: No acute distress. Alert and oriented. HEENT: Anicteric sclera. Neck: No JVD. No bruits. Normal carotid upstrokes bilaterally. Cardiac: PMI was Non palpable. No ventricular heave. Irregular at times and tachycardic. Normal S1-S2. No murmurs, rubs, or gallops. Pulmonary: Clear to auscultation bilaterally without wheezes, rales, or rhonchi. Abdomen: Soft, nontender, nondistended, with normoactive bowel sounds. No bruits noted. Extremities: 2+ radial pulses bilaterally. 2+ posterior tibialis pulses bilaterally. No pitting edema or cyanosis. Psychiatric: Affect appears appropriate. Results & Data Vital Signs (Past 12 Hours) Vital Signs Temp Pulse Pulse Resp BP BP Pulse Ox 09/09/18 07:04 36.6 C 131 H 18 148/95 H 95 09/09/18 06:28 121 H 19 133/75 96 09/09/18 06:00 122 H 122 H 18 131/97 131/97 96 09/09/18 05:35 139 H 15 96 09/09/18 05:30 125/91 09/09/18 05:07 122/94 09/09/18 04:30 106 H 21 137/102 H 95 09/09/18 04:01 133 H 22 95 09/09/18 04:00 98 H 17 94 09/09/18 03:37 98 H 19 103/76 99 09/09/18 03:30 127 H 14 103/76 96 09/09/18 03:00 138 H 128 H 13 131/84 96 09/09/18 02:37 97 09/09/18 02:36 137 H 17 140/79 97 09/09/18 02:19 150 H 20 161/106 H 97 09/09/18 02:09 36.7 C 143 H 18 135/91 96 Laboratory Results Laboratory Results - last 24 hr 09/09/18 09/09/18 09/09/18 02:26 02:26 02:26 WBC 8.61 RBC 4.85 Hgb 14.7 Hct 42.9 MCV 88.5 MCH 30.3 MCHC 34.3 RDW Std Deviation 45.2 RDW Coeff of Beverley 13.9 Plt Count 185 MPV 9.7 Immature Gran % (Auto) 0.2 Neut % (Auto) 50.0 Lymph % (Auto) 38.8 Colbert % (Auto) 7.5 Eos % (Auto) 3.3 Baso % (Auto) 0.2 Immature Gran # (Auto) 0.02 Neut # (Auto) 4.30 Lymph # (Auto) 3.34 Colbert # (Auto) 0.65 H Eos # (Auto) 0.28 Baso # (Auto) 0.02 PT 14.1 H INR 1.4 H APTT 40.4 H PTT Ratio 1.5 Sodium 144 Potassium 3.4 L Chloride 108 H Carbon Dioxide 25 Anion Gap 11.0 BUN 16 Creatinine 0.88 Est Cr Clr Drug Dosing 58.8 Est GFR ( Amer) 74.0 Est GFR (Non-Af Amer) 63.8 BUN/Creatinine Ratio 18.1 Glucose 101 H Calcium 9.3 Magnesium 2.1 Total Bilirubin 0.2 AST 25 ALT 40 Alkaline Phosphatase 105 Troponin I < 0.015 Total Protein 7.9 Albumin 3.9 Globulin 4.0 Albumin/Globulin Ratio 1.0 TSH 5.350 H Free T4 1.03 Urine Color Urine Appearance Urine pH Ur Specific [place] Urine Protein Urine Glucose (UA) Urine Ketones Urine Blood Urine Nitrite Urine Bilirubin Urine Urobilinogen Ur Leukocyte Esterase Urine WBC (Auto) Urine RBC (Auto) U Hyaline Cast (Auto) U Epithel Cells (Auto) Urine Bacteria (Auto) 09/09/18 09/09/18 03:16 08:58 WBC RBC Hgb Hct MCV MCH MCHC RDW Std Deviation RDW Coeff of [place]ley Plt Count MPV Immature Gran % (Auto) Neut % (Auto) Lymph % (Auto) Colbert % (Auto) Eos % (Auto) Baso % (Auto) Immature Gran # (Auto) Neut # (Auto) Lymph # (Auto) Colbert # (Auto) Eos # (Auto) Baso # (Auto) PT INR APTT PTT Ratio Sodium Potassium Chloride Carbon Dioxide Anion Gap BUN Creatinine Est Cr Clr Drug Dosing Est GFR ( Amer) Est GFR (Non-Af Amer) BUN/Creatinine Ratio Glucose Calcium Magnesium Total Bilirubin AST ALT Alkaline Phosphatase Troponin I 0.015 Total Protein Albumin Globulin Albumin/Globulin Ratio TSH Free T4 Urine Color Yellow Urine Appearance Clear Urine pH 6.5 Ur Specific [place] 1.013 Urine Protein 2+ H Urine Glucose (UA) Negative Urine Ketones Negative Urine Blood 1+ H Urine Nitrite Negative Urine Bilirubin Negative Urine Urobilinogen Negative Ur Leukocyte Esterase Negative Urine WBC (Auto) 1-5 Urine RBC (Auto) 0-4 U Hyaline Cast (Auto) 0 U Epithel Cells (Auto) 5-10 H Urine Bacteria (Auto) Negative Diagnostic Findings Echo 04/15/2017: Normal LV size and systolic function. EF 55-60%. Moderate LVH. Normal wall motion. Sclerotic aortic valve. Severe left atrial dilation. Mild MR. Telemetry personally reviewed: Atrial flutter with rapid ventricular response. ECGs personally reviewed. ECG 09/09/2018 at 9:10 a.m.: Atrial flutter at [address]/T- wave abnormality. ECG 09/09/2018 at 2:14 a.m.: Atrial flutter with variable AV conduction at [address]/T-wave abnormality. Chest x-ray 09/09/2018: Images personally reviewed. No infiltrate. No obvious acute abnormality. According to Radiology, no acute process. Medications Administered Current Inpatient Medications Acetaminophen (Tylenol) 650 mg PO Q4H PRN PRN Reason: Pain or Fever Stop: 10/09/18 07:02 Diltiazem HCl (Cardizem) 30 mg PO Q6 [facility] Stop: 10/09/18 08:59 Last Admin: 09/09/18 08:29 Dose: 30 mg Documented by: Losartan Potassium (Cozaar) 100 mg PO DAILY FRANCISCO Stop: 10/09/18 08:59 Last Admin: 09/09/18 08:30 Dose: 100 mg Documented by: Miscellaneous (Order Awaiting Action) 1 ea N/A QS [facility] Stop: 10/09/18 07:59 Rivaroxaban (Xarelto) 20 mg PO QDD [facility] Stop: 10/09/18 16:29 Tamoxifen Citrate (Nolvadex) 20 mg PO DAILY [facility] Stop: 10/09/18 08:59 Last Admin: 09/09/18 08:29 Dose: 20 mg Documented by: Vitamin D (Vitamin D3) 1,000 units PO DAILY [facility] Stop: 10/09/18 08:59 Last Admin: 09/09/18 08:30 Dose: 1,000 units Documented by:
--- NOTE | 2018-09-09 13:01 | History & Physical Bridge Note ---
Date of Service September 09, 2018 History & Physical Bridge Note Aflutter with RVR. Seen by cardiology with plan to rate-control with dilt (PO and/or IV) & possible cardiovert tomorrow. Has had a lot of life stressors recently which she attributes as the reason for her aflutter.
--- NOTE | 2018-09-09 13:09 | Anesthesiology Consultation ---
Date of Service September 09, 2018 Assessment & Plan (1) Encounter for pre-operative examination: Chart Review Chart Review: Acceptable Risk for Surgery and Patient NOT seen in Pre Admission Testing Consults Requested none cardiology is following patient History Surgery Operation Date: 09/10/18 07:45 Proposed Procedures p Cardioversion Climatology Professor w/Anesthesia - Tommy Carlos MD Height/Weight Height: 5 ft 6 in Weight: 81.8 kg Allergies Allergy/AdvReac Type Severity Reaction Status Date / Time Sulfa (Sulfonamide Allergy Mild TOLERATES Verified 09/09/18 03:59 Antibiotics) LASIX [id number] Reductase Allergy Unknown body aches Unverified 09/09/18 03:59 Inhibitor VIET Inhibitors Allergy Cough Verified 09/09/18 03:59 atorvastatin Allergy Myalgia Verified 09/09/18 03:59 doxazosin Allergy Unknown Verified 09/09/18 03:59 doxycycline Allergy Hives Verified 09/09/18 03:59 metoprolol Allergy Rash Verified 09/09/18 03:59 hydrochlorothiazide AdvReac Mild Itchy Rash Verified 09/09/18 03:59 Medications Home Medications Medication Instructions Recorded Confirmed Last Taken amiloride 5 mg PO DAILY 11/12/17 09/09/18 09/08/18 cholecalciferol (vitamin D3) 1,000 unit PO DAILY 11/12/17 09/09/18 09/08/18 losartan 100 mg PO DAILY 11/12/17 09/09/18 09/08/18 nifedipine 90 mg PO DAILY 11/12/17 09/09/18 09/08/18 tamoxifen 20 mg PO DAILY 11/12/17 09/09/18 09/08/18 coenzyme Q10 100 mg capsule 100 mg PO BID cap 08/08/18 09/09/18 09/08/18 rivaroxaban 20 mg tablet 20 mg PO DAILY #90 tab 08/08/18 09/09/18 09/08/18 Active Medications Generic Name Dose Route Start Last Admin Trade Name Freq PRN Reason Stop Dose Admin Diltiazem HCl 30 mg 09/09/18 09:00 09/09/18 08:29 Cardizem PO 10/09/18 08:59 30 mg Q6 FRANCISCO Administration Losartan Potassium 100 mg 09/09/18 09:00 09/09/18 08:30 Cozaar PO 10/09/18 08:59 100 mg DAILY FRANCISCO Administration Tamoxifen Citrate 20 mg 09/09/18 09:00 09/09/18 08:29 Nolvadex PO 10/09/18 08:59 20 mg DAILY FRANCISCO Administration Vitamin D 1,000 units 09/09/18 09:00 09/09/18 08:30 Vitamin D3 PO 10/09/18 08:59 1,000 units DAILY FRANCISCO Administration Past Medical History Medical History Vitamin D deficiency (Acute) 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 (Acute) Hyperlipidemia (Acute) Elevated LFTs (Acute) Atrial flutter, paroxysmal (Acute) Arthritis of multiple sites (Acute) Abnormal glucose measurement (Acute) AF (paroxysmal atrial fibrillation) (Acute) DJD (degenerative joint disease) (Chronic) Hypercortisolism (Acute) Hypercholesteremia (Acute) Hypertension (Chronic) Valvular disease (Chronic) CKD (chronic kidney disease) stage 2, GFR 60-89 ml/min (Chronic) Breast cancer (Resolved 05/12/13) "Abnormal mammogram 05/01/2013 left breast Status post ultrasound-guided biopsies 05/12/2013 revealing invasive carcinoma Estrogen receptor positive, progesterone receptor positive, HER-2/larry negat sriram Status post partial mastectomy and sentinel lymph node biopsy 06/08/2013 Infiltrating ductal carcinoma stage pT1c pN1M0 Status post completion of radiation therapy 09/21/2013 received 6120 cGy " Lyme disease (Resolved) DJD (degenerative joint disease) (Acute) Neck pain (Acute) Past Family History Family History Uncle Colon cancer Father Myocardial infarction Cardiac disorder Hypertension Mother Anxiety Depression Sister Kidney disease Hyperthyroidism Past Surgical History Surgical History H/O parathyroidectomy (Resolved) H/O partial mastectomy (Acute) Social History Smoking Status: Never smoker Hx Alcohol Use: No Hx Substance Use: No Physical Exam Vital Signs Last Vital Signs Temp 37 C 09/09/18 11:14 Pulse 112 H 09/09/18 11:14 Resp 16 09/09/18 11:14 BP 118/77 09/09/18 11:14 Pulse Ox 96 09/09/18 11:14 Testing Laboratory Results 09/09/18 02:26 07/09/19 02:26 PT 14.1 Seconds (9.0-12.0) H 09/09/18 02:26 INR 1.4 (0.9-1.1) H 09/09/18 02:26 APTT 40.4 Seconds (21.0-31.0) H 09/09/18 02:26 Urine Color Yellow 09/09/18 03:16 Urine Appearance Clear (Clear) 09/09/18 03:16 Urine pH 6.5 (4.5-7.5) 09/09/18 03:16 Ur Specific [place] 1.013 (1.000-1.030) 09/09/18 03:16 Urine Protein 2+ (Negative) H 09/09/18 03:16 Urine Glucose (UA) Negative (Negative) 09/09/18 03:16 Urine Ketones Negative (Negative) 09/09/18 03:16 Urine Nitrite Negative (Negative) 09/09/18 03:16 Ur Leukocyte Esterase Negative (Negative) 09/09/18 03:16 Urine WBC (Auto) 1-5 /hpf (0-5) 09/09/18 03:16 Urine RBC (Auto) 0-4 /hpf (0-4) 09/09/18 03:16 U Hyaline Cast (Auto) 0 /lpf (0-5) 09/09/18 03:16 U Epithel Cells (Auto) 5-10 /lpf (0-5) H 09/09/18 03:16 Urine Bacteria (Auto) Negative (Negative) 09/09/18 03:16 Electrocardiogram Date: 09/09/18 Findings: + NSST changes Sinus tach at 130 has replaced afib, consider inferior ischemia Chest X-Ray Date: 09/09/18 XR chest 1V portable HISTORY: weakness COMPARISON: Chest 11/12/2017. FINDINGS: Cardiac silhouette remains borderline enlarged. No new focal lung consolidations to suggest pneumonia. No evidence for pulmonary edema. No pleural effusions. No pneumothorax. IMPRESSION: No significant change compared to the prior study. No acute process. Electronically signed by: Deepak Wade M.D. 09/09/2018 7:28 AM
[2018-09-09] MEDS ORDERED: RIVAROXABAN 20 MG TAB PO SCH (16:30)
[2018-09-09] MEDS: dilTIAZem HCl 60 MG TAB PO SCH ×2 (16:56→23:21)
[2018-09-10] MEDS: dilTIAZem HCl 60 MG TAB PO SCH (06:09)
[2018-09-10 07:45] LABS: BUN Creatinine Ratio 18.9 (10-20); Calcium 9.5 mg/dl (8.5-10.1); Creatinine Clr Calc Pharmacy 53.7 ml/min; Est GFR (African American) 66.6; Est GFR (Non-African American) 57.4; Potassium 4.1 mmol/L (3.5-5.1)
--- NOTE | 2018-09-10 08:05 | Procedure Note ---
Procedure Note Date of Service September 10, 2018 Note Procedure performed: Cardioversion Indication: The patient is a 77-year-old woman with a history of atrial flutter who presented to [facility] with recurrent atrial flutter and associated high ventricular rates Staff photonics engineer: Francis Carlos MD Procedure in detail: The patient was informed of the risks benefits and alternatives to the intended procedure. She understood such which proceed. She was taken to the cardiac catheterization suite holding area. A general anesthetic was administered by the Anesthesiology Service. Once appropriately anesthetized, the patient was cardioverted using 100 joules delivered in a biphasic fashion. This returned the patient to sinus rhythm. The patient tolerated procedure well, there were no immediate complications. Patient was neurologically intact subsequent to the procedure. Impression: Successful cardioversion from atrial flutter to normal sinus rhythm Coding
[2018-09-10] MEDS ORDERED: PROPOFOL IV EMULSION 10 MG/ML 20 ML VIAL IV ONE (08:06)
[2018-09-10] MEDS ORDERED: LIDOCAINE HCL 2% MPF (LOCAL) 5 ML VIAL INFIL ONE (08:06)
--- NOTE | 2018-09-10 08:08 | Cardiology Progress Note ---
Date of Service September 10, 2018 Assessment & Plan (1) Atrial flutter with rapid ventricular response: She had a successful cardioversion this morning. Patient should continue on Xarelto at the time of discharge. I do not believe other medications are required. She should follow-up in the cardiology clinic for discussion regarding either antiarrhythmic therapy or preferably catheter-based treatment of what appears to be a typical right atrial flutter. (2) Hypokalemia: Replete potassium as per primary service. (3) Mitral regurgitation: Mild on echocardiogram performed yesterday (4) Hypertension: Subjective This morning the patient was feeling well. No significant chest discomfort. Still a sensation of palpitations and rapid heart rate. Anxious to go home. Review of Systems Review of Systems: Per HPI Physical Exam Physical Exam: She is alert and oriented x3. Mood affect appear normal. She answered all questions appropriately. HEENT: Sclerae are anicteric. Pupils are equal and reactive to light and accommodation. Extraocular movements were intact. Neuro: Cranial nerves intact Lungs: She has normal respiratory effort without use of accessory muscles. There is normal pulmonary excursion. Cardiac: Tachycardic Abdomen: The abdomen was soft and nontender. Skin: There are no rashes noted on examination today. Results & Data Vital Signs (Past 12 Hours) Vital Signs Temp Pulse Pulse Resp BP BP Pulse Ox 09/10/18 06:45 122 H 09/10/18 06:13 123 H 09/10/18 04:01 36.9 C 68 18 118/68 94 09/10/18 00:00 83 09/09/18 23:00 36.9 C 99 H 20 142/89 H 92 Laboratory Results Abnormal Lab Results 09/09/18 09/10/18 08:58 06:53 Sodium 142 Potassium 4.1 D Chloride 110 H Carbon Dioxide 22 Anion Gap 10.0 BUN 18 Creatinine 0.96 Est Cr Clr Drug Dosing 53.7 Est GFR ( Amer) 66.6 Est GFR (Non-Af Amer) 57.4 BUN/Creatinine Ratio 18.9 Glucose 96 Calcium 9.5 Magnesium 2.0 Troponin I 0.015 Diagnostic Findings Echocardiogram performed yesterday revealed preserved LV systolic function with severely dilated left atrium and mild mitral regurgitation.
[2018-09-10] MEDS: CHOLECALCIFEROL 1,000 UNITS TAB PO SCH (08:49)
[2018-09-10] MEDS: TAMOXIFEN CITRATE 10 MG TABLET PO SCH (08:49)
[2018-09-10] MEDS: LOSARTAN POTASSIUM 50 MG TAB PO SCH (08:49)
--- NOTE | 2018-09-10 08:57 | Anesthesiology Progress Note ---
Date of Service September 10, 2018 Anesthesia Post Procedure Vital Signs Vital Signs: Temp Pulse Pulse Pulse Resp BP BP 09/10/18 08:54 36.9 C 73 16 146/92 H 09/10/18 06:45 122 H 09/10/18 06:13 123 H 09/10/18 04:01 36.9 C 68 18 118/68 09/10/18 00:00 83 09/09/18 23:00 36.9 C 99 H 20 142/89 H 09/09/18 19:29 36.7 C 85 18 127/87 09/09/18 16:54 121 H 136/84 09/09/18 16:00 126 H 09/09/18 15:17 36.5 C 119 H 18 148/82 H 09/09/18 14:15 130 H 144/93 H 09/09/18 11:14 37 C 112 H 16 118/77 Pulse Ox 09/10/18 08:54 94 09/10/18 06:45 09/10/18 06:13 09/10/18 04:01 94 09/10/18 00:00 09/09/18 23:00 92 09/09/18 19:29 94 09/09/18 16:54 09/09/18 16:00 09/09/18 15:17 94 09/09/18 14:15 09/09/18 11:14 96 Transfer of Care Handoff Completed per policy Notes Mental Status: alert / awake / arousable Patient Amnestic to Procedure: Yes Nausea / Vomiting: adequately controlled Pain: adequately controlled Airway Patency, RR, SpO2: stable & adequate BP & HR: stable & adequate Hydration State: stable & adequate Anesthetic Complications: no major complications apparent
[2018-09-10] MEDS ORDERED: AMILORIDE 5 MG PO SCH ×2 (09:00)
--- NOTE | 2018-09-10 16:22 | Discharge Summary ---
Date of Service September 10, 2018 Admission HPI Per Admitting Provider 77-year-old female states that when she awoke to use the restroom around 1 AM this morning she had the feeling of chest palpitations. She has a known history of paroxysmal atrial fibrillation and says her last hospital evaluation for this was in December 2017. Previously saw [facility] Cardiology for this. Denies previous hospitalizations for the same. Says she has been taking her Xarelto as well as blood pressure medications regularly. She says she can feel that her heart is racing but she denies any associated chest pain/pressure or shortness of breath. Otherwise she has no particular acute concerns. When asked what may have caused this, she relates multiple financial stressors. For example, she says that yesterday she received the hospital bill related to her 's back in December. - Past medical history includes paroxysmal atrial fibrillation, hypertension, hyperlipidemia, left breast cancer 2013, aortic valve disease, right eye cataract, Lyme disease. - Past surgical history includes partial mastectomy and sentinel lymph node dissection, parathyroidectomy, appendectomy, tonsil and adenoidectomy, cataract removal, total knee replacement. - Social history includes never smoking, denies alcohol use. , lives at home. Principal Diagnosis Aflutter with rapid rate Discharge Exam ENMT Mouth: + small oral opening; no dentition abnormality Mallampati Class: III Neck + shortened thyromental distance Respiratory normal respiratory effort Auscultation: lungs clear to auscultation bilaterally Cardiovascular Rate/Rhythm: + abnormal rhythm Discharge Data Allergies Allergy/AdvReac Type Severity Reaction Status Date / Time Sulfa (Sulfonamide Allergy Mild TOLERATES Verified 09/09/18 03:59 Antibiotics) LASIX Uwnzhla-Ddb-Gtk Reductase Allergy Unknown body aches Unverified 09/09/18 03:59 Inhibitor VIET Inhibitors Allergy Cough Verified 09/09/18 03:59 atorvastatin Allergy Myalgia Verified 09/09/18 03:59 doxazosin Allergy Unknown Verified 09/09/18 03:59 doxycycline Allergy Hives Verified 09/09/18 03:59 metoprolol Allergy Rash Verified 09/09/18 03:59 hydrochlorothiazide AdvReac Mild Itchy Rash Verified 09/09/18 03:59 Consultations 09/09/18 03:36 ED Decision to Admit Stat 09/09/18 08:50 Consult Cardiology Routine 09/10/18 07:30 Consult Anesthesiology Routine Procedures Performed Operation Date: 09/10/18 07:45 Actual Procedures p Cardioversion - Tommy Carlos MD Hospital Course (1) Atrial flutter with rapid ventricular response: She had a successful cardioversion this morning. Patient should continue on Xarelto at the time of discharge. I do not believe other medications are required. She should follow-up in the cardiology clinic for discussion regarding either antiarrhythmic therapy or preferably catheter-based treatment of what appears to be a typical right atrial flutter. (2) Hypokalemia: Replete potassium as per primary service. 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 John Dan's office on September 18 at 4:15 pm. *If you need to change this appointment, call the office at [phone].) Tommy Carlos MD [Physician] - 09/26/18 3:15 pm (Please, follow up at [facility] Cardiology Office with Dr. Carlos on SaturdaySeptember 26 at 3:15 pm. *The office is located in [address] of [facility], next to the hospital. If you need to change this appointment, call the office at [phone].) Diet: Regular Addtl Provider Instructions: Please call Dr. Carlos's office if you have any more sensations of flutter in your chest. Prescriptions: Continued rivaroxaban 20 mg tablet 20 mg PO DAILY Qty: 90 RF: 0 coenzyme Q10 100 mg capsule 100 mg PO BID RF: 0 nifedipine 90 mg Tablet Extended Release 90 mg PO DAILY RF: 0 amiloride 5 mg Tablet 5 mg PO DAILY RF: 0 losartan 100 mg Tablet 100 mg PO DAILY RF: 0 tamoxifen 20 mg Tablet 20 mg PO DAILY RF: 0 cholecalciferol (vitamin D3) 1,000 unit Tablet 1,000 unit PO DAILY RF: 0 Stand-Alone Forms: [facility] Discharge Orders: Discharge Order (Routine); Ordered 09/10/18 Ordered By: Jourdan Mason Admission Data Admit Date/Time: 09/09/18 05:44 Attending Provider: Jourdan Mason Admit Provider: Deon Brand Primary Care Provider: John Dan Other Providers: Jourdan Mason ; Oliverio Lopez ; Hollis Paredes ; Vianey Anaya ; Smita Rubin ; Abby Hoffman ; Iris Andrews ; Trudy Guerra ; Jessenia Simeon ; Gilmer Quesada ; Jerrod Flores ; Christopher Davila ; Deepak Ponce ; Karla Ponce ; Osbaldo Nino ; Lora Stanton ; Cyrus Orantes ; Terence Sparks ; Marcus Dotson ; Olman Ross ; Amador Mascorro ; Any Garza ; Donovan Josue ; Jessica Reis ; Claudia Josue ; Matthew Romero ; Gisela Gomez ; Romario Lemus ; Briana Campos ; Ewelina Stockton ; Abdoul Costello ; Rachel Lambert ; Anne Brower ; Meeta Baker ; Anali Olson ; Tr Olson V ; Jerson Hightower ; Abby Rebollar ; Derian Odom ; Genoveva May V ; Lavelle Bashir ; Negar Cobos ; Nani Maradiaga ; Smiley Rebollar ; Tr Littlejohn ; Sami Garza ; Vijaya Valadez ; Meeta Dickens ; Christopher Mendiola ; Farida Mcdowell ; Terence Long ; Armando Mascorro ; Jaymie Cristobal ; Tommy Jimenes Service: Telemetry Medical Other Interventions: Discharge Summary Assessment (RN) Last Done: 09/10/18 11:36 DC Date/Time DO NOT enter until pt leaves facility: 09/10/18 12:28
== END 2018-09-10 12:28 | disposition home or self-care (01) | DRG 310 ==
LOC: ED 02:07 → 2N 05:44 → SUATTDRO 05:44 → 2N 06:28

== ENCOUNTER 2019-11-25 20:47 | Inpatient (IN) ==
[2019-11-25 21:35] LABS: Basophils # (auto) 0.02 K/uL (0-0.2); Basophils % (auto) 0.2 %; Eosinophils # (auto) 0.11 K/uL (0-0.5); Hematocrit (blood only) 35.8 % (37-47); Hemoglobin 12.1 g/dL (12.0-16.0); Immature Granulocytes # (auto) 0.04 K/uL (0.00-0.02); Immature Granulocytes % (auto) 0.4 %; Lymphocytes % (auto) 10.1 %; Mean Corpuscular Hemoglobin 29.9 pg (25-34); Mean Corpuscular Hgb Conc 33.8 g/dL (32-36); Mean Corpuscular Volume 88.4 fL (80-100); Monocytes # (auto) 0.76 K/uL (0.11-0.59); Neutrophils # (auto) 8.89 K/uL (1.4-6.5); Neutrophils % (auto) 81.3 %; Platelet Count 167 K/uL (130-400); RDW Standard Deviation 48.4 fL (36.4-46.3); Red Blood Count 4.05 M/uL (4.2-5.4); White Blood Count 10.92 K/uL (4.8-10.8)
[2019-11-25 21:52] LABS: Albumin Level 3.7 gm/dl (3.4-5.0); BUN Creatinine Ratio 16.3 (10-20); Calcium 9.6 mg/dl (8.5-10.1); Creatinine Clr Calc Pharmacy 44.1 ml/min; Est GFR (African American) 54.5; Potassium 3.7 mmol/L (3.5-5.1)
[2019-11-25 21:56] LABS: Bilirubin,Total 0.8 mg/dl (0.2-1); Globulin 3.8 gm/dl (2.5-4.0); Total Protein 7.5 gm/dl (6.4-8.2); Troponin I 0.015 ng/ml (0-0.045)
[2019-11-25 21:57] LABS: INR 1.3 (0.9-1.1); Partial Thromboplastin Ratio 1.3; Partial Thromboplastin Time 35.6 Seconds (21.0-31.0); Prothrombin Time 13.1 Seconds (9.0-12.0)
[2019-11-25 22:25] LABS: Magnesium 1.9 mg/dl (1.8-2.4); Phosphorus 2.7 mg/dl (2.5-4.9)
[2019-11-25] MEDS ORDERED: OPTIRAY 320 125ml IV ONE (22:38)
--- NOTE | 2019-11-25 23:28 | Emergency Department Note ---
Impression & Plan Hypertensive urgency, Pulmonary edema, Pleural effusion, bilateral, Atrial fibrillation status post cardioversion ED Provider Note NAME: ALESHIA GARAY AGE: 79 SEX: F ARRIVES VIA: Walk-In INFORMANT: Patient, ED PROVIDER(S): Ze Tomas MD CHIEF COMPLAINT: Shortness of breath PLAN: Disposition: Admit MEDICAL DECISION MAKING: The patient is a pleasant 79-year-old woman with a past medical history of invasive ductal carcinoma of the left breast diagnosed in 2013 who is status post and radiation with completion of 6 years of tamoxifen on Xarelto with recent history of recurrence of A. fib with status post ablation on 10/29 but then this recurred and so she had cardioversion yesterday which she reports was uneventful but this morning awoke with increased shortness of breath and intermittent coughing spells. She denies any fevers, chills, or known COVID-19 exposures. She does report a 10 pound weight gain over the past several weeks. She denies nausea, vomiting, diarrhea. On arrival patient is mildly dyspneic appearing with respiratory rate in the upper 30s but oxygen saturation is within normal limits. EKG without overt acute ischemia. Chest x-ray with suspected venous congestion per my preliminary review. Chemistry without significant acidosis. Electrolytes and LFTs unremarkable. Troponin negative/undetectable. BNP within normal limits. Given the patient's dyspnea we did elect to proceed with CTA of the chest and this was limited per preliminary stat rad report negative for PE or focal consolidation though does demonstrate suspicion for mild pulmonary edema in addition to bilateral pleural effusions. Thus symptoms possibly related to multiple factors including increased fluid retention in addition to elevated blood pressures. The patient was ordered for BiPAP for suspected pulmonary edema related to hypertensive urgency, addition to DuoNeb for component of bronchospasm on exam, and Lasix for component of fluid retention. Case was discussed with Dr. Adams, [facility] hospitalist, who will evaluate the patient for admission. Triage Nursing notes reviewed and agree them. Prior medical records reviewed Vital Signs: reviewed and remarkable for hypertension. Differential diagnosis: Reactive airway disease, pneumonia, pneumothorax, COPD, CHF, infections, cardiac ischemia, pulmonary embolism, musculoskeletal, gastrointestinal, as well as other pathologies. ER treatment provided: See below. Diagnostics interpreted by me: ECG: Sinus tachycardia, 105 bpm, no ectopy, no overt ST elevation or depression, QTC 433, QRS 80. Cardiac Monitoring: An order for continuous cardiac monitoring was placed and demonstrated sinus tachycardia, 105 bpm, no ectopy. Laboratory studies: See below Imaging studies: [facility] Preliminary Findings Only See Final Report For Complete Findings CTA CHEST: The pulmonary arterial tree is well opacified with contrast. There is motion artifact involving the lower lobe pulmonary artery branches bilaterally. No pulmonary embolism is identified. The thoracic aorta is nondilated. No aneurysm or dissection is seen. There is mild cardiomegaly and severe coronary calcification. No pericardial effusion is seen. There are small bilateral pleural effusions layering 1.3 cm thick on the right with mild bibasilar subsegmental atelectasis. There is slight hazy increased density in the central lungs bilaterally suggesting mild pulmonary edema. The lungs are otherwise clear. Moderate multilevel osteophytosis throughout the thoracic spine with increased kyphosis. No acute fracture or subluxation is seen. Radiologist: Amador Adams MD Study ready at 22:44 and initial results transmitted at 23:12 Consultation(s): Case was discussed with Dr. Adams, [facility] hospitalist, who will evaluate the patient for admission. HPI: The patient is a pleasant 79-year-old woman with a past medical history of invasive ductal carcinoma of the left breast diagnosed in 2013 who is status post and radiation with completion of 6 years of tamoxifen on Xarelto with recent history of recurrence of A. fib with status post ablation on 10/29 but then this recurred and so she had cardioversion yesterday which she reports was uneventful but this morning awoke with increased shortness of breath and in termittent coughing spells. She denies any fevers, chills, or known COVID-19 exposures. She does report a 10 pound weight gain over the past several weeks. She denies nausea, vomiting, diarrhea. ROS: See above HPI for pertinent positives & negatives. A total of 10 systems reviewed and were otherwise negative. PAST MEDICAL HISTORY:See Below PAST SURGICAL HISTORY:See Below FAMILY HISTORY:See Below SOCIAL HISTORY:See Below HOME MEDICATIONS:See Below ALLERGIES:See Below VITALS:See Below PHYSICAL EXAMINATION: GENERAL: Awake, alert, dyspneic-appearing, in no distress HENT: Normocephalic, atraumatic. Oropharynx unremarkable. EYES: Normal conjunctiva. Sclera non-icteric. NECK: Supple. No nuchal rigidity. FROM. No JVD. RESPIRATORY: Diminished at the bases with scant wheeze and rhonchi. CARDIAC: Regular rate, normal rhythm. Extremities warm and well perfused. Pulses equal. ABDOMEN: Soft, non-distended. No tenderness to palpation. No rebound or guardin g. No masses. RECTAL: Deferred. MUSCULOSKELETAL: Chest examination reveals no tenderness. The back is symmetrical on inspection without obvious abnormality. There is no CVA tenderness to palpation. No joint edema. LOWER EXTREMITIES: Calves are equal size bilaterally and non-tender. Scant BLE edema. No discoloration. NEURO: Normal sensorium. No sensory or motor deficits noted. SKIN: No rash or jaundice noted. Critical Care: I have personally spent greater than 35 minutes of critical care time in the direct management of this patient. This includes bedside care, interpretation of diagnostic studies, and testing, discussion with consultants, patient, and family members, and other required patient management activities. This 35 minutes is in excess of all separately billable procedures. Ze Tomas MD Past Med/Surg History Medical History Abnormal glucose measurement Acute hypokalemia AF (paroxysmal atrial fibrillation) Arthritis of multiple sites Atrial fibrillation with RVR Atrial flutter with rapid ventricular response Atrial flutter, paroxysmal Breast cancer (05/12/13) "Abnormal mammogram 05/01/2013 left breast Status post ultrasound-guided biopsies 05/12/2013 revealing invasive carcinoma Estrogen receptor positive, progesterone receptor positive, HER-2/larry negative Status post partial mastectomy and sentinel lymph node biopsy 06/08/2013 Infiltrating ductal carcinoma stage pT1c pN1M0 Status post completion of radiation therapy 09/21/2013 received 6120 cGy " CKD (chronic kidney disease) stage 2, GFR 60-89 ml/min DJD (degenerative joint disease) Elevated LFTs Elevated TSH Encounter for pre-operative examination Hypercholesteremia Hypercortisolism Hyperlipidemia Hypertension Hypokalemia 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 Lyme disease Neck pain Palpitation Valvular disease Vitamin D deficiency Surgical History H/O parathyroidectomy H/O partial mastectomy History of appendectomy History of cataract surgery History of left knee replacement 2009 History of tonsillectomy and adenoidectomy Family History Uncle Colon cancer Father Myocardial infarction Cardiac disorder Hypertension Mother Anxiety Depression Sister Kidney disease Hyperthyroidism Social History Smoking Status: Never smoker Hx Alcohol Use: No Hx Substance Use: No Preferred Language: Kyrgyz Communication Ability: Effective Visual Impairment: Limited Hearing Ability: Normal Combination Machine Tender Required: No Beliefs That Will Affect Care: None Current Living Situation: Family Current Living Situation Comment: grandson lives with patient current occupational status: retired Feels Safe at Home: Yes Childhood Exposure to Second-Hand Smoke: No caffeine: Yes Dental Care, Regularly: No Physical Activity Frequency: Other Physical Activity Frequency Comment: daily chores Seatbelt Use: always Sunscreen Use: Yes Assistive Devices: None Allergies Allergies Allergy/AdvReac Type Severity Reaction Status Date / Time Sulfa (Sulfonamide Allergy Mild TOLERATES Verified 11/25/19 23:16 Antibiotics) LASIX Kchdicq-Cqj-Hhf Reductase Allergy Unknown body aches Verified 11/25/19 23:16 Inhibitor VITE Inhibitors Allergy Cough Verified 11/25/19 23:16 atorvastatin Allergy Myalgia Verified 11/25/19 23:16 doxazosin Allergy Unknown Verified 11/25/19 23:16 doxycycline Allergy Hives Verified 11/25/19 23:16 metoprolol Allergy Rash Verified 11/25/19 23:16 hydrochlorothiazide AdvReac Mild Itchy Rash Verified 11/25/19 23:16 dronedarone [From Multaq] AdvReac a-fib Verified 11/25/19 23:16 Home Meds Home Medications Medication Instructions Recorded Confirmed coenzyme Q10 100 mg capsule 100 mg PO BID cap 08/08/18 11/25/19 turmeric (bulk) 95 % powder 95 % MISCELLANEOUS QAM gm 10/01/19 11/25/19 amiloride 10 mg PO QAM 10/30/19 11/25/19 losartan 100 mg PO QAM 10/30/19 11/25/19 rivaroxaban 20 mg PO PM 10/30/19 11/25/19 Previous Rx's Medication Instructions Recorded atenolol 50 mg tablet See Rx Instructions .ROUTE 11/10/19 .COMPLEX PRN #20 tab diltiazem HCl 240 mg 240 mg PO DAILY #30 cap 11/11/19 capsule,extended release 24 hr Results & Data (ED) Vital Signs Vital Signs - 24 hr 11/25/19 20:56 11/25/19 21:21 11/25/19 21:25 Temperature 37.4 C Temperature Source Oral Pulse Rate 100 H 95 H Pulse Rate [Right Radial] Pulse Rate from SpO2 Sensor 95 H Respiratory Rate 40 H 31 H Respiratory Effort / Characteristics Short of Breath SOB on Exertion Spontaneous Labored Respiratory Depth Shallow Normal Respiratory Pattern Tachypnea Regular Blood Pressure 185/96 H 172/92 H Blood Pressure Mean 125 122 Pulse Oximetry 95 94 Oxygen Delivery Method Room Air Room Air Room Air Fraction of Inspired Oxygen Sepsis Recent Fever Within 48 Hours No Sepsis New/Unexplained Change in Mental Status No Sepsis Action Taken by Nursing No Action Required 11/25/19 22:00 11/25/19 23:00 11/25/19 23:30 Temperature Temperature Source Pulse Rate 93 H 93 H 90 Pulse Rate [Right Radial] Pulse Rate from SpO2 Sensor 93 H 94 H 90 Respiratory Rate 33 H 29 H 29 H Respiratory Effort / Characteristics Respiratory Depth Respiratory Pattern Blood Pressure 167/94 H 173/107 H 171/107 H Blood Pressure Mean 125 134 115 Pulse Oximetry 93 93 92 Oxygen Delivery Method Room Air Room Air Fraction of Inspired Oxygen Sepsis Recent Fever Within 48 Hours Sepsis New/Unexplained Change in Mental Status Sepsis Action Taken by Nursing 11/25/19 23:57 11/25/19 23:58 11/26/19 00:11 Temperature Temperature Source Pulse Rate 88 89 Pulse Rate [Right Radial] 88 Pulse Rate from SpO2 Sensor 89 Respiratory Rate 25 H 25 H 25 H Respiratory Effort / Characteristics Spontaneous Labored Spontaneous Labored Respiratory Depth Normal Respiratory Pattern Regular Blood Pressure 159/101 H Blood Pressure Mean 131 Pulse Oximetry 97 97 97 Oxygen Delivery Method BiPAP Room Air Fraction of Inspired Oxygen 28 28 Sepsis Recent Fever Within 48 Hours Sepsis New/Unexplained Change in Mental Status Sepsis Action Taken by Nursing 11/26/19 01:54 Temperature Temperature Source Pulse Rate 85 Pulse Rate [Right Radial] Pulse Rate from SpO2 Sensor 85 Respiratory Rate 17 Respiratory Effort / Characteristics Respiratory Depth Respiratory Pattern Blood Pressure 155/86 H Blood Pressure Mean 116 Pulse Oximetry 95 Oxygen Delivery Method Room Air Fraction of Inspired Oxygen Sepsis Recent Fever Within 48 Hours Sepsis New/Unexplained Change in Mental Status Sepsis Action Taken by Nursing Laboratory Data Result diagrams: 11/25/19 21:20 11/25/19 21:20 Lab Results 11/25/19 11/25/19 11/25/19 Range/Units 21:20 21:20 21:20 WBC 10.92 H (4.8-10.8) K/uL RBC 4.05 L (4.2-5.4) M/uL Hgb 12.1 (12.0-16.0) g/dL Hct 35.8 L (37-47) % MCV 88.4 (80-100) fL MCH 29.9 (25-34) pg MCHC 33.8 (32-36) g/dL RDW Std Deviation 48.4 H (36.4-46.3) fL RDW Coeff of Beverley 15.0 H (11.5-14.5) % Plt Count 167 (130-400) K/uL MPV 10.0 (7.4-10.4) fL Immature Gran % (Auto) 0.4 % Neut % (Auto) 81.3 % Lymph % (Auto) 10.1 % [place] % (Auto) 7.0 % Eos % (Auto) 1.0 % Baso % (Auto) 0.2 % Neut # (Auto) 8.89 H (1.4-6.5) K/uL Lymph # (Auto) 1.10 L (1.2-3.4) K/uL [place] # (Auto) 0.76 H (0.11-0.59) K/uL Eos # (Auto) 0.11 (0-0.5) K/uL Baso # (Auto) 0.02 (0-0.2) K/uL Immature Gran # (Auto) 0.04 H (0.00-0.02) K/uL PT 13.1 H (9.0-12.0) Seconds INR 1.3 H (0.9-1.1) APTT 35.6 H (21.0-31.0) Seconds PTT Ratio 1.3 Sodium 141 (136-145) mmol/L Potassium 3.7 (3.5-5.1) mmol/L Chloride 110 H (98-107) mmol/L Carbon Dioxide 20 L (21-32) mmol/L Anion Gap 11.0 (3-11) BUN 18 (7-18) mg/dl Creatinine 1.12 (0.6-1.2) mg/dl Est Cr Clr Drug Dosing 44.1 ml/min Est GFR ( Amer) 54.5 Est GFR (Non-Af Amer) 47.0 BUN/Creatinine Ratio 16.3 (10-20) Glucose 149 H (70-99) mg/dl Calcium 9.6 (8.5-10.1) mg/dl Phosphorus (2.5-4.9) mg/dl Magnesium (1.8-2.4) mg/dl Total Bilirubin 0.8 (0.2-1) mg/dl AST 28 (15-37) U/L ALT 44 (12-78) U/L Alkaline Phosphatase 65 (45-117) U/L Troponin I 0.015 (0-0.045) ng/ml NT-Pro-B Natriuret Pep (0-1800) pg/ml Total Protein 7.5 (6.4-8.2) gm/dl Albumin 3.7 (3.4-5.0) gm/dl Globulin 3.8 (2.5-4.0) gm/dl Albumin/Globulin Ratio 1.0 (0.9-2) COVID-19 Eval Order COVID-19 PCR (Negative) 11/25/19 11/26/19 11/26/19 Range/Units 21:20 00:36 00:36 WBC (4.8-10.8) K/uL RBC (4.2-5.4) M/uL Hgb (12.0-16.0) g/dL Hct (37-47) % MCV (80-100) fL MCH (25-34) pg MCHC (32-36) g/dL RDW Std Deviation (36.4-46.3) fL RDW Coeff of Beverley (11.5-14.5) % Plt Count (130-400) K/uL MPV (7.4-10.4) fL Immature Gran % (Auto) % Neut % (Auto) % Lymph % (Auto) % [place] % (Auto) % Eos % (Auto) % Baso % (Auto) % Neut # (Auto) (1.4-6.5) K/uL Lymph # (Auto) (1.2-3.4) K/uL [place] # (Auto) (0.11-0.59) K/uL Eos # (Auto) (0-0.5) K/uL Baso # (Auto) (0-0.2) K/uL Immature Gran # (Auto) (0.00-0.02) K/uL PT (9.0-12.0) Seconds INR (0.9-1.1) APTT (21.0-31.0) Seconds PTT Ratio Sodium (136-145) mmol/L Potassium (3.5-5.1) mmol/L Chloride (98-107) mmol/L Carbon Dioxide (21-32) mmol/L Anion Gap (3-11) BUN (7-18) mg/dl Creatinine (0.6-1.2) mg/dl Est Cr Clr Drug Dosing ml/min Est GFR ( Amer) Est GFR (Non-Af Amer) BUN/Creatinine Ratio (10-20) Glucose (70-99) mg/dl Calcium (8.5-10.1) mg/dl Phosphorus 2.7 (2.5-4.9) mg/dl Magnesium 1.9 (1.8-2.4) mg/dl Total Bilirubin (0.2-1) mg/dl AST (15-37) U/L ALT (12-78) U/L Alkaline Phosphatase (45-117) U/L Troponin I (0-0.045) ng/ml NT-Pro-B Natriuret Pep 668 (0-1800) pg/ml Total Protein (6.4-8.2) gm/dl Albumin (3.4-5.0) gm/dl Globulin (2.5-4.0) gm/dl Albumin/Globulin Ratio (0.9-2) COVID-19 Eval Order Covid19 Done at [facility] COVID-19 PCR NEGATIVE (Negative) Administered Medications Discontinued Medications Albuterol (Albut/Ipratrop 3mg/0.5mg Neb 3 Ml Vial) 3 ml NEB NOW STA Stop: 11/25/19 23:38 Last Admin: 11/25/19 23:55 Dose: 3 ml Documented by: [id number] Furosemide (Furosemide 40 Mg/4 Ml Vial) 20 mg IV NOW STA Stop: 11/25/19 23:38 Last Admin: 11/26/19 00:11 Dose: 20 mg Documented by: [id number] Ioversol (Optiray 320 125ml) 120 ml IV ONCE ONE Stop: 11/25/19 22:39 Last Admin: 11/25/19 22:39 Dose: 120 ml Documented by: [id number] Nitroglycerin (Nitroglycerin 2% Ointment 30gm Tube) Confirm Administered Dose 18 inch .ROUTE .STK-MED ONE Stop: 11/26/19 00:25 Last Admin: 11/26/19 00:43 Dose: 0.5 inch Documented by: [id number] Blood Pressure Blood Pressure Findings: Elevated blood pressure Blood Pressure Disposition: further management by hospitalist Discharge Plan Visit Data Chief Complaint: Shortness of Breath/Dyspnea Stated Complaint: shortness of breath ED Provider: Ze Tomas Discharge Problem: Hypertensive urgency, Pulmonary edema, Pleural effusion, bilateral, Atrial fibr illation status post cardioversion Patient Disposition: Admitted As Inpatient Discharge Instructions Interventions: ED Discharge Assessment Last Done: 11/26/19 02:28 Discharge Problem: Pulmonary edema Qualifiers: Chronicity: acute Qualified Code(s): J81.0 - Acute pulmonary edema
[2019-11-25] MEDS ORDERED: FUROSEMIDE 40 MG/4 ML VIAL IV STA (23:37)
[2019-11-25] MEDS ORDERED: ALBUT/IPRATROP 3MG/0.5MG NEB 3 ML VIAL NEB STA (23:37)
[2019-11-26] MEDS ORDERED: NITROGLYCERIN 2% OINTMENT 30GM TUBE EXT STA (00:18)
[2019-11-26] MEDS ORDERED: NITROGLYCERIN 2% OINTMENT 30GM TUBE ONE (00:24)
--- NOTE | 2019-11-26 02:13 | History & Physical Report ---
Date of Service November 26, 2019 Assessment & Plan (1) SOB (shortness of breath): Patient with SOB, tachypnea, decreased oxygen saturations. Imaging and exam suggestive of volume overload - pleural effusions, pulmonary edema. Patient reports she is approximately 11 pounds over her normal weight. She has been cardioverted in the past and states that following the cardioversion she typically urinates large amounts. She did not pass a lot of urine following this cardioversion, however. She seems to be responding well to Lasix at this time. No PE on imaging. No clinical or radiographic evidence of PNA. Covid-19 testing NEGATIVE -Admit to medical floor with telemetry -Lasix 40mg IV daily -Monitor I/O -Monitor daily weight -Echo limited study -Supplemental O2 as needed Present on Admission?: Yes (2) AF (paroxysmal atrial fibrillation): S/p cardioversion, presently in NSR. Plan for ablation in the future -Continue Diltiazem 240mg po daily -Continue Rivaroxaban Present on Admission?: Yes (3) CKD (chronic kidney disease) stage 2, GFR 60-89 ml/min: BUN and Cr near baseline -Monitor UOP with diuresis as above -Monitor renal function and electrolytes -Avoid nephrotoxic agents Present on Admission?: Yes (4) Hypertension: Chronic. Elevated upon arrival now improved. ?if contributing to pulmonary edema -Continue Amiloride, Diltiazem and Losartan -Continue to monitor F/E/N - Diuresis with IV Lasix as above, electrolytes WNL, Heart healthy diet as tolerated Ppx - Anticoagulated with Rivaroxaban for AF Code - DNR/DNI per discussion with patient Dispo - Admit to medical floor with telemetry Present on Admission?: Yes History of Present Illness Chief Complaint: SOB Primary Care Provider: John Dan MD Sasha Mcguire is a 79yo C female with history of atrial fibrillation, s/p DC Cardioversion performed at [place] yesterday. Patient presents with complaint of SOB, cough productive for clear sputum, LE edema and weight gain (Is typically 180# now 191#). She denies fever/chills/CP/nausea/vomiting/diarrhea/ constipation/loss of taste or smell. No Covid-19 contacts or recent travel. Patient markedly tachypneic on arrival to the ER requiring rescue BiPAP for increased work of breathing. Saturations decreased to 90% with ambulation to the restroom. No additional complaitns at this time. ER course: Lasix. Albuterol. Nitro paste, BiPAP Allergies Allergy/AdvReac Type Severity Reaction Status Date / Time Sulfa (Sulfonamide Allergy Mild TOLERATES Verified 11/25/19 23:16 Antibiotics) LASIX Ghxrrgy-Uzs-Kcg Reductase Allergy Unknown body aches Verified 11/25/19 23:16 Inhibitor VIET Inhibitors Allergy Cough Verified 11/25/19 23:16 atorvastatin Allergy Myalgia Verified 11/25/19 23:16 doxazosin Allergy Unknown Verified 11/25/19 23:16 doxycycline Allergy Hives Verified 11/25/19 23:16 metoprolol Allergy Rash Verified 11/25/19 23:16 hydrochlorothiazide AdvReac Mild Itchy Rash Verified 11/25/19 23:16 dronedarone [From Multaq] AdvReac a-fib Verified 11/25/19 23:16 Home Medications Home Medications Medication Instructions Recorded Confirmed Type coenzyme Q10 100 mg capsule 100 mg PO BID cap 08/08/18 11/25/19 History turmeric (bulk) 95 % powder 95 % MISCELLANEOUS QAM 10/01/19 11/25/19 History amiloride 10 mg PO QAM 10/30/19 11/25/19 History losartan 100 mg PO QAM 10/30/19 11/25/19 History rivaroxaban 20 mg PO PM 10/30/19 11/25/19 History atenolol 50 mg tablet See Rx Instructions .ROUTE 11/10/19 11/25/19 Rx .COMPLEX PRN #20 tab diltiazem HCl 240 mg 240 mg PO DAILY #30 cap 11/11/19 11/25/19 Rx capsule,extended release 24 hr Past Med/Surg History Medical History Abnormal glucose measurement Acute hypokalemia AF (paroxysmal atrial fibrillation) Arthritis of multiple sites Atrial fibrillation with RVR Atrial flutter with rapid ventricular response Atrial flutter, paroxysmal Breast cancer (05/12/13) "Abnormal mammogram 05/01/2013 left breast Status post ultrasound-guided biopsies 05/12/2013 revealing invasive carcinoma Estrogen receptor positive, progesterone receptor positive, HER-2/larry negative Status post partial mastectomy and sentinel lymph node biopsy 06/08/2013 Infiltrating ductal carcinoma stage pT1c pN1M0 Status post completion of radiation therapy 09/21/2013 received 6120 cGy " CKD (chronic kidney disease) stage 2, GFR 60-89 ml/min DJD (degenerative joint disease) Elevated LFTs Elevated TSH Encounter for pre-operative examination Hypercholesteremia Hypercortisolism Hyperlipidemia Hypertension Hypokalemia 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 Lyme disease Neck pain Palpitation Valvular disease Vitamin D deficiency Surgical History H/O parathyroidectomy H/O partial mastectomy History of appendectomy History of cataract surgery History of left knee replacement 2009 History of tonsillectomy and adenoidectomy Family History Uncle Colon cancer Father Myocardial infarction Cardiac disorder Hypertension Mother Anxiety Depression Sister Kidney disease Hyperthyroidism Social History Smoking Status: Never smoker Hx Alcohol Use: No Hx Substance Use: No Preferred Language: Slovak Communication Ability: Effective Visual Impairment: Limited Hearing Ability: Normal 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 Beliefs That Will Affect Care: None Current Living Situation: Family Current Living Situation Comment: grandson lives with patient current occupational status: retired Feels Safe at Home: Yes Childhood Exposure to Second-Hand Smoke: No caffeine: Yes Dental Care, Regularly: No Physical Activity Frequency: Other Physical Activity Frequency Comment: daily chores Seatbelt Use: always Sunscreen Use: Yes Assistive Devices: Glasses Review of Systems Review of Systems: All systems reviewed & are unremarkable except as noted in HPI & below Physical Exam Physical Exam: General: patient resting comfortably, NAD, non-toxic in appearance, AA&O x 4 Skin: warm, dry, intact, no rashes or lesions HEENT: NC/AT, PERRL, EOMI, anicteric sclera, conjunctiva without injection, external ear normal to inspection and nontender, nares patent, moist mucus membranes, dentition intact, no oropharyngeal lesions, neck supple, trachea midline, no LAD, no thyromegaly, no JVD Heart: +S1/S2, regular, no m/r/g Lungs: equal air entry bilaterally, +crackles in bilateral bases Abd: +BS, soft, NT/ND, no masses/organomegaly/ascites Ext: warm, 2+ pulses in UE/LE bilaterally, no clubbing/cyanosis, 1+ edema Neuro: nonfocal, patient AA&O x 4, speech intact, no facial droop, moving all extremities on command with equal strength 5/5 Results & Data Results & Data ([facility]) Vital Signs (Past 12 Hours) Vital Signs Temp Pulse Pulse Resp BP Pulse Ox 11/26/19 00:11 89 25 H 159/101 H 97 11/25/19 23:58 88 25 H 97 11/25/19 23:57 88 25 H 97 11/25/19 23:30 90 29 H 171/107 H 92 11/25/19 23:00 93 H 29 H 173/107 H 93 11/25/19 22:00 93 H 33 H 167/94 H 93 11/25/19 21:21 95 H 31 H 172/92 H 94 11/25/19 20:56 37.4 C 100 H 40 H 185/96 H 95 Laboratory Results Lab Results 11/25/19 11/25/19 11/25/19 Range/Units 21:20 21:20 21:20 WBC 10.92 H (4.8-10.8) K/uL RBC 4.05 L (4.2-5.4) M/uL Hgb 12.1 (12.0-16.0) g/dL Hct 35.8 L (37-47) % MCV 88.4 (80-100) fL MCH 29.9 (25-34) pg MCHC 33.8 (32-36) g/dL RDW Std Deviation 48.4 H (36.4-46.3) fL RDW Coeff of Beverley 15.0 H (11.5-14.5) % Plt Count 167 (130-400) K/uL MPV 10.0 (7.4-10.4) fL Immature Gran % (Auto) 0.4 % Neut % (Auto) 81.3 % Lymph % (Auto) 10.1 % [place] % (Auto) 7.0 % Eos % (Auto) 1.0 % Baso % (Auto) 0.2 % Neut # (Auto) 8.89 H (1.4-6.5) K/uL Lymph # (Auto) 1.10 L (1.2-3.4) K/uL [place] # (Auto) 0.76 H (0.11-0.59) K/uL Eos # (Auto) 0.11 (0-0.5) K/uL Baso # (Auto) 0.02 (0-0.2) K/uL Immature Gran # (Auto) 0.04 H (0.00-0.02) K/uL PT 13.1 H (9.0-12.0) Seconds INR 1.3 H (0.9-1.1) APTT 35.6 H (21.0-31.0) Seconds PTT Ratio 1.3 Sodium 141 (136-145) mmol/L Potassium 3.7 (3.5-5.1) mmol/L Chloride 110 H (98-107) mmol/L Carbon Dioxide 20 L (21-32) mmol/L Anion Gap 11.0 (3-11) BUN 18 (7-18) mg/dl Creatinine 1.12 (0.6-1.2) mg/dl Est Cr Clr Drug Dosing 44.1 ml/min Est GFR ( Amer) 54.5 Est GFR (Non-Af Amer) 47.0 BUN/Creatinine Ratio 16.3 (10-20) Glucose 149 H (70-99) mg/dl Calcium 9.6 (8.5-10.1) mg/dl Phosphorus (2.5-4.9) mg/dl Magnesium (1.8-2.4) mg/dl Total Bilirubin 0.8 (0.2-1) mg/dl AST 28 (15-37) U/L ALT 44 (12-78) U/L Alkaline Phosphatase 65 (45-117) U/L Troponin I 0.015 (0-0.045) ng/ml NT-Pro-B Natriuret Pep (0-1800) pg/ml Total Protein 7.5 (6.4-8.2) gm/dl Albumin 3.7 (3.4-5.0) gm/dl Globulin 3.8 (2.5-4.0) gm/dl Albumin/Globulin Ratio 1.0 (0.9-2) COVID-19 Eval Order COVID-19 PCR (Negative) 11/25/19 11/26/19 11/26/19 Range/Units 21:20 00:36 00:36 WBC (4.8-10.8) K/uL RBC (4.2-5.4) M/uL Hgb (12.0-16.0) g/dL Hct (37-47) % MCV (80-100) fL MCH (25-34) pg MCHC (32-36) g/dL RDW Std Deviation (36.4-46.3) fL RDW Coeff of Beverley (11.5-14.5) % Plt Count (130-400) K/uL MPV (7.4-10.4) fL Immature Gran % (Auto) % Neut % (Auto) % Lymph % (Auto) % [place] % (Auto) % Eos % (Auto) % Baso % (Auto) % Neut # (Auto) (1.4-6.5) K/uL Lymph # (Auto) (1.2-3.4) K/uL [place] # (Auto) (0.11-0.59) K/uL Eos # (Auto) (0-0.5) K/uL Baso # (Auto) (0-0.2) K/uL Immature Gran # (Auto) (0.00-0.02) K/uL PT (9.0-12.0) Seconds INR (0.9-1.1) APTT (21.0-31.0) Seconds PTT Ratio Sodium (136-145) mmol/L Potassium (3.5-5.1) mmol/L Chloride (98-107) mmol/L Carbon Dioxide (21-32) mmol/L Anion Gap (3-11) BUN (7-18) mg/dl Creatinine (0.6-1.2) mg/dl Est Cr Clr Drug Dosing ml/min Est GFR ( Amer) Est GFR (Non-Af Amer) BUN/Creatinine Ratio (10-20) Glucose (70-99) mg/dl Calcium (8.5-10.1) mg/dl Phosphorus 2.7 (2.5-4.9) mg/dl Magnesium 1.9 (1.8-2.4) mg/dl Total Bilirubin (0.2-1) mg/dl AST (15-37) U/L ALT (12-78) U/L Alkaline Phosphatase (45-117) U/L Troponin I (0-0.045) ng/ml NT-Pro-B Natriuret Pep 668 (0-1800) pg/ml Total Protein (6.4-8.2) gm/dl Albumin (3.4-5.0) gm/dl Globulin (2.5-4.0) gm/dl Albumin/Globulin Ratio (0.9-2) COVID-19 Eval Order Covid19 Done at [facility] COVID-19 PCR NEGATIVE (Negative) Diagnostic Findings CTA Chest - Per STAT Rad: The pulmonary arterial tree is well opacified iwth contrast. There is motion artifact involving the lower lobe pulmonary artery branches bilaterally. No pulmonary embolism is identified. The thoracic aorta is nondilated. No aneurysm or dissection is seen. There ismild cardiomegaly and severe coronary calcification. No pericardial effusion is seen. There are small bilateral pleural effusions layering 1.3cm thick on the right with mild bibasilar subsegmental atelectasis. There is slight hazy increased density in the central lungs bilaterally suggesting mild pulmonary edema. The lungs are otherwise clear. moderate multilevel osteophytosis throughout the thoracic spine with increased kyphosis. No acute fracture or subluxation is seen. Code Status & VTE Plan Code Status DNR/DNI PG Care Time/CCT Total # of Minutes Spent Total Time Spent with Patient: Total time spent is greater than 50% in coordination of care (as documented) at patient's floor/unit and/or counseling patient: Coding Level of Care Code 29685 Initial Inpt Care Lvl 3 Diagnoses SOB (shortness of breath) R06.02 AF (paroxysmal atrial fibrillation) I48.0 CKD (chronic kidney disease) stage 2, GFR 60-89 ml/min N18.2 Hypertension I10 Hypertension type: essential hypertension (1) Hypertension Hypertension type: essential hypertension Qualified Code(s): I10 - Essential (primary) hypertension
[2019-11-26] MEDS ORDERED: ACETAMINOPHEN 325 MG TAB PO PRN (02:50)
--- NOTE | 2019-11-26 07:20 | XRay Report ---
XR chest 1V portable CLINICAL HISTORY: Shortness of breath. COMPARISON STUDY: Chest radiograph October 22, 2019. FINDINGS: Lung volumes are normal. There is no pneumothorax or pleural effusion. Moderate cardiomegal y is noted. No consolidation is identified. Mild interstitial thickening is noted. IMPRESSION: 1. Findings suggestive of mild interstitial pulmonary edema. 2. Moderate cardiomegaly. ACT 112: Negative or not required by law. Electronically signed by: Daniel Shafer M.D. 11/26/2019 7:19 AM
--- NOTE | 2019-11-26 07:26 | CT Scan Report ---
CT ANGIOGRAM OF THE CHEST CLINICAL HISTORY: Cough shortness of breath. Possible pulmonary embolism COMPARISON STUDY: Chest x-ray dated 11/25/2019 TECHNIQUE: Following the IV administration of 120 mL of Optiray-320, CT angiogram of the thorax was p erformed from the thoracic inlet to the lung bases utilizing the pulmonary embolus protocol. Images a re reviewed in the axial, sagittal, and coronal planes. IV contrast was administered without complica tion. MIP imaging was performed. A dose lowering technique was utilized adhering to the principles o f ALARA. CT DOSE: 353.81 mGy.cm FINDINGS: No pathologically enlarged axillary mediastinal or hilar lymph nodes were visualized. There was no evidence of thoracic aortic dilatation. There are no pulmonary artery filling defects to indicate acute pulmonary embolism. Evaluation of the lower lobe pulmonary artery branches is moderately limited due to respiratory motion artifact. There are small bilateral pleural effusions. There are bibasilar opacities, likely atelectatic. There is pulmonary emphysema. There are subtle lef t upper lobe groundglass opacities, edema versus infectious/inflammatory. There is mild septal edema The heart is enlarged. There are coronary artery calcifications. IMPRESSION: 1. Motion degraded study 2. No evidence of acute pulmonary embolism 3. Cardiomegaly and small bilateral pleural effusions 4. Bibasilar opacity statistically atelectatic 5. Mild interlobular septal edema 6. Subtle left upper lobe groundglass opacities, focal pulmonary edema versus infectious/inflammatory . ACT 112: Negative or not required by law. Electronically signed by: Ulisses Barber M.D. 11/26/2019 7:25 AM
[2019-11-26] MEDS: AMILORIDE HCL 5 MG TAB PO SCH (07:44)
[2019-11-26] MEDS: FUROSEMIDE 40 MG in SYRINGE 0 ML IV SCH (07:44)
[2019-11-26] MEDS: LOSARTAN POTASSIUM 50 MG TAB PO SCH (07:45)
[2019-11-26] MEDS: dilTIAZem HCL 240 MG CAPCR PO SCH (07:46)
--- NOTE | 2019-11-26 09:05 | XCELERA ---
[id number]
--- NOTE | 2019-11-26 09:47 | Hospitalist Progress Note ---
Date of Service November 26, 2019 Assessment & Plan (1) SOB (shortness of breath): Sasha Mcguire is a very pleasant 79-year-old female with a notable past history of paroxysmal atrial flutter (with RVR s/p DC cardioversion at [facility] on 11/24/19 and 10/2019), HFpEF (EF 60-65% in 11/2019), moderate-severe mitral regurgitation, breast cancer ([facility]) s/p mastectomy and radiation in 2013, HTN, HLD, and CKD Stage II who presented to [facility] on 11/24 shortness of breath after 1 day s/p DC cardioversion for paroxysmal atrial flutter with RVR, Acute Hypoxic Respiratory Failure -- Resolving - Admitting s/s were significant afebrile state, severe shortness of breath, productive cough x 1 day, and tachypnea at 40 breaths/min following DC cardioversion at [facility] for AFlutter w/ RVR on 11/23 - Given patient's notable cardiac history including AFlutter, mitral regurgitation, and HFpEF -- alongside great response to Lasix -- suspect this respiratory failure was 2/2 HFpEF exacerbation with symptomatic volume overload - Imaging workup in ED - CXR in ED significant for mild interstitial pulmonary edema and moderate cardiomegaly - CTA of chest was neg for PEs, but significant for cardiomegaly, small b/l pleural effusions, mild interlobular septal edema, subtle SKINNY ground glass opacities suggestive of focal edema vs. infex/inflamm - EKG in ED demonstrated sinus tachycardia, no acute ST-T abnormalitie HFpEF Exacerbation with Symptomatic Volume Overload -- Resolving Acute pulmonary edema - Suspect this exacerbation was likely 2/2 recent atrial flutter with RVR s/p cardioversion. Patient denies any recent anginal symptoms, general chest pain, or worsening of dyspnea upon exertion prior to this. - Echocardiogram ordered -- demonstrated EF 60-65%, normal LV function, mild concentric LVH, diastolic dysfunction grade II, moderate-severe MR, and severely dilated left atrium - Received one dose lasix 40mg in ED. continue daily dose 40mgs - Monitor I&Os - Monitor daily weight Paroxysmal atrial flutter -- not currently present, patient in NSR - s/p DC cardioversion at [facility] for atrial flutter with RVR on 11/23 - Has remained in sinus rhythm since admission per telemetry - Continue diltiazem 240mg PO daily - Continue home atenolol 10mg PO qAM - Continue rivaroxaban daily - Med/surg telemetry for rhythm monitoring CKD Stage II - Admission BUN 18, Cr 1.12 -- near baseline (~Cr 1.0) - Continue monitoring I&Os in setting of daily diuresis - BMP tomorrow AM Chronic HTN - Elevated significantly upon arrival with SBP up to 180s -- may have been contributory to pulmonary edema - Stable in the 130s/80s since last night - Continue home amiloride, losartan Dispo: Med/surg with Tele F/E/N: Heart healthy diet, lasix qAM with BMP PPX: Rivaroxaban for aflutter Code: DNR/DNI (2) Hypertensive urgency: (3) Pulmonary edema: (4) Pleural effusion, bilateral: (5) Atrial fibrillation status post cardioversion: (6) Left atrial enlargement: (7) Mitral regurgitation: (8) Vitamin D deficiency: (9) Hyperlipidemia: (10) Atrial flutter, paroxysmal: (11) AF (paroxysmal atrial fibrillation): (12) CKD (chronic kidney disease) stage 2, GFR 60-89 ml/min: (13) Breast cancer: Admission and Anticipated Discharge Date Admission Date: November 26, 2019 Supervising Physician Co-Signing Physician Notes Resident Physician Supervision Note: I independently interviewed and examined the patient and verified the lam history and physical, reviewed labs and image studies, discussed the case with the resident Dr. Bazzi and agree with the findings and care plan. Subjective At approximately midnight last night, patient did require BiPAP (for about an hour) atop the therapeutic dose of Lasix given in the ED to aid her breathing. Oxygen saturations remained in the mid to high 90s on room air following this. She continued to be hemodynamically stable past this time. At the bedside this morning, the patient reports that she is feeling "almost 90% better than when she first came in" following her breathing treatment (BiPAP) atop her Lasix given in the emergency room last night, as well as her second dose this morning. She denies any shortness of breath, cough, chest pain, chest pressure, or otherwise. Understandably, reports going to the bathroom quite frequently, but without any difficulty. Upon review of her history, patient reports that she underwent cardioversion in [place] approximately a month ago (given her history of paroxysmal atrial flutter w/ RVR), and then experienced another bout of RVR about 3 days ago that required DC cardioversion 2 days ago. In the interim between the 2, she denied any shortness of breath, cough, PND, orthopnea, or any chest pains/palpitations. However, and the day after her most recent cardioversion (2 days ago), she reported developing shortness of breath, persistent cough that was productive of clear sputum, and lower extremity edema. She also noted that over the last month or so, her weight steadily increased from her baseline of 180-191. Update (4:30pm): Patient continues to feel well. Denies any shortness of breath or cough. Denies any feeling of rapid heart rate. Review of Systems Respiratory: Denies cough. Endorses minimal shortness of breath. Cardiovascular: as per Subjective / HPI; no chest pain and no palpitations Gastrointestinal: no abdominal pain, no nausea and no vomiting Physical Exam Constitutional: Well-appearing 79-year-old female who is lying back in her hospital bed, watching TV upon entry. She converses in full sentences without any apparent shortness of breath. No acute distress. Respiratory: Good respiratory effort with symmetric expansion of the chest. Intermittent dry coughs. Lungs demonstrated mild intermittent crackles at the right lower lung field and base, but otherwise demonstrated no abnormalities through auscultation. Cardiovascular: Normal rate and regular rhythm. S1 and S2 present without any appreciable murmurs rubs or gallops. There is 1+ peripheral edema bilaterally in the lower extremities. Gastrointestinal (Abdomen): Normoactive bowel sounds. Abdomen is soft, nontender, nondistended to palpation without any appreciable organomegaly. Psychiatric: A+Ox3, euthymic affect Results & Data Results & Data ([facility]) Vital Signs (Past 12 Hours) Vital Signs Temp Pulse Pulse Resp BP BP Pulse Ox 11/26/19 07:11 37.1 C 80 16 138/78 92 11/26/19 03:49 83 11/26/19 02:50 36.8 C 84 16 147/80 H 93 11/26/19 02:00 81 22 156/88 H 93 11/26/19 01:54 85 17 155/86 H 95 11/26/19 00:11 89 25 H 159/101 H 97 09/23/20 23:58 88 25 H 97 11/25/19 23:57 88 25 H 97 11/25/19 23:30 90 29 H 171/107 H 92 11/25/19 23:00 93 H 29 H 173/107 H 93 11/25/19 22:00 93 H 33 H 167/94 H 93 Resident Activity Tracking Resident Involvement: Resident Care Provided Care Provided: Adult Hospital Medicine (1) Pulmonary edema Chronicity: acute Qualified Code(s): J81.0 - Acute pulmonary edema
[2019-11-26] MEDS ORDERED: RIVAROXABAN 20 MG TAB PO SCH (21:00)
[2019-11-27 06:28] LABS: Basophils # (auto) 0.02 K/uL (0-0.2); Basophils % (auto) 0.3 %; Eosinophils # (auto) 0.24 K/uL (0-0.5); Eosinophils % (auto) 3.6 %; Hematocrit (blood only) 33.6 % (37-47); Hemoglobin 11.2 g/dL (12.0-16.0); Immature Granulocytes # (auto) 0.02 K/uL (0.00-0.02); Immature Granulocytes % (auto) 0.3 %; Lymphocytes # (auto) 1.42 K/uL (1.2-3.4); Mean Corpuscular Hemoglobin 29.2 pg (25-34); Mean Corpuscular Hgb Conc 33.3 g/dL (32-36); Mean Corpuscular Volume 87.5 fL (80-100); Mean Platelet Volume 9.8 fL (7.4-10.4); Monocytes # (auto) 0.57 K/uL (0.11-0.59); Monocytes % (auto) 8.4 %; Neutrophils # (auto) 4.49 K/uL (1.4-6.5); Neutrophils % (auto) 66.4 %; Platelet Count 155 K/uL (130-400); RDW Coefficient of Variation 14.9 % (11.5-14.5); RDW Standard Deviation 47.4 fL (36.4-46.3); Red Blood Count 3.84 M/uL (4.2-5.4); White Blood Count 6.76 K/uL (4.8-10.8)
[2019-11-27 07:04] LABS: BUN Creatinine Ratio 19.8 (10-20); Creatinine Clr Calc Pharmacy 51.4 ml/min; Est GFR (African American) 65.7; Est GFR (Non-African American) 56.6; Potassium 3.8 mmol/L (3.5-5.1)
[2019-11-27 07:21] VITALS: O2SAT 94
[2019-11-27] MEDS: FUROSEMIDE 40 MG in SYRINGE 0 ML IV SCH (08:16)
[2019-11-27] MEDS: LOSARTAN POTASSIUM 50 MG TAB PO SCH (08:16)
[2019-11-27] MEDS: dilTIAZem HCL 240 MG CAPCR PO SCH (08:17)
[2019-11-27] MEDS: AMILORIDE HCL 5 MG TAB PO SCH (08:17)
--- NOTE | 2019-11-27 11:11 | Discharge Summary ---
Date of Service November 27, 2019 Admission HPI Per Admitting Provider Sasha Mcguire is a 79yo C female with history of atrial fibrillation, s/p DC Cardioversion performed at [place] yesterday. Patient presents with complaint of SOB, cough productive for clear sputum, LE edema and weight gain (Is typically 180# now 191#). She denies fever/chills/CP/nausea/vomiting/diarrhea/constipation/loss of taste or smell. No Covid-19 contacts or recent travel. Patient markedly tachypneic on arrival to the ER requiring rescue BiPAP for increased work of breathing. Saturations decreased to 90% with ambulation to the restroom. No additional complaitns at this time. ER course: Lasix. Albuterol. Nitro paste, BiPAP Admission Exam Per Admitting Provider Constitutional: Well-appearing 79-year-old female who is lying back in her hospital bed, watching TV upon entry. She converses in full sentences without any apparent shortness of breath. No acute distress. Respiratory: Good respiratory effort with symmetric expansion of the chest. Intermittent dry coughs. Lungs demonstrated mild intermittent crackles at the right lower lung field and base, but otherwise demonstrated no abnormalities through auscultation. Cardiovascular: Normal rate and regular rhythm. S1 and S2 present without any appreciable murmurs rubs or gallops. There is 1+ peripheral edema bilaterally in the lower extremities. Gastrointestinal (Abdomen): Normoactive bowel sounds. Abdomen is soft, nontender, nondistended to palpation without any appreciable organomegaly. Psychiatric: A+Ox3, euthymic affect Principal Diagnosis acute hypoxic respiratory failure pulmonary edema heart failure with preserved ejection fraction (HFpEF) Discharge Exam Constitutional Well-appearing 79-year-old female who is lying back in her hospital bed watching TV upon my arrival into the room. She converses freely and without any distress. She is oriented throughout our conversation Respiratory Good respiratory effort with symmetric expansion of the chest. Lungs are clear to auscultation bilaterally without any crackles or wheezes. Improved from yesterday. There is no evidence of peripheral edema in the lower extremities bilaterally. Cardiovascular Normal rate and regular rhythm. S1 and S2 are present without any murmurs rubs or gallops. Gastrointestinal (Abdomen) Normal active bowel sounds. Abdomen is soft, nontender, nondistended. No appreciable organomegaly. Discharge Data Allergies Allergy/AdvReac Type Severity Reaction Status Date / Time Sulfa (Sulfonamide Allergy Mild TOLERATES Verified 11/25/19 23:16 Antibiotics) LASIX Znbarwf-[id number]-[id number] Reductase Allergy Unknown body aches Verified 11/25/19 23:16 Inhibitor VIET Inhibitors Allergy Cough Verified 11/25/19 23:16 atorvastatin Allergy Myalgia Verified 11/25/19 23:16 doxazosin Allergy Unknown Verified 11/25/19 23:16 doxycycline Allergy Hives Verified 11/25/19 23:16 metoprolol Allergy Rash Verified 11/25/19 23:16 hydrochlorothiazide AdvReac Mild Itchy Rash Verified 11/25/19 23:16 dronedarone [From Multaq] AdvReac a-fib Verified 11/25/19 23:16 Consultations 11/25/19 23:42 ED Decision to Admit Stat Ordered Studies 11/25/19 21:57 CT angio chest PE protocol Urgent Hospital Course (1) SOB (shortness of breath): Sasha Mcguire is a very pleasant 79-year-old female with a notable past history of paroxysmal atrial flutter (with RVR s/p DC cardioversion at [facility] on 11/24/19 and 10/2019), HFpEF (EF 60-65% in 11/2019), moderate-severe mitral regurgitation, breast cancer ([facility]) s/p mastectomy and radiation in 2013, HTN, HLD, and CKD Stage II who presented to [facility] on 11/24 for management of acute hypoxic respiratory failure approx. 1 day s/p DC cardioversion for paroxysmal atrial flutter with RVR, which has subsequently been relieved s/p volume reduction with Lasix and BiPaP x 1. Acute Hypoxic Respiratory Failure -- Resolved at Discharge - Admitting s/s were significant for afebrile state, severe shortness of breath, productive cough x 1 day, and tachypnea at 40 breaths/min following DC cardioversion at [facility] for AFlutter w/ RVR on 11/23 - On admission, was also found to have hypertensive urgency at 185/ - Imaging workup in ED - CXR in ED significant for mild interstitial pulmonary edema and moderate cardiomegaly - CTA of chest was neg for PEs, but significant for cardiomegaly, small b/l pleural effusions, mild interlobular septal edema, subtle SKINNY ground glass opacities suggestive of focal edema vs. infex/inflamm - EKG in ED demonstrated sinus tachycardia, no acute ST-T abnormalities - In ED kept on BiPAP for an hour - on room air on discharge. - Given patient's notable cardiac history including AFlutter, mitral regurgitation, and HFpEF -- alongside great response to Lasix -- suspect this respiratory failure was 2/2 HFpEF exacerbation with symptomatic volume overload HFpEF Exacerbation with Symptomatic Volume Overload -- Resolving - Suspect this exacerbation was likely 2/2 recent atrial flutter with RVR s/p cardioversion. Patient denies any recent anginal symptoms, general chest pain, or worsening of dyspnea upon exertion prior to this. - Echocardiogram ordered -- demonstrated EF 60-65%, normal LV function, mild concentric LVH, diastolic dysfunction grade II, moderate-severe MR, and severely dilated left atrium - In the ED, Lasix 40mg IV x 1 - Responded very well to Lasix in the ED and qAM throughout admission -- much improved respiratory exam with return to normal RR, and SpO2s satting in mid- high 90%s on RA - Vitals at d/c were: 137/74, HR 80, RR 18, T 36.8C, 94% RA - Monitor I&Os -- outputs were not accurately measured by the time of discharge. However, patient reports they "[were] up every hour urinating" during their first true day of admission - Monitored daily weight - Patient did report +9lb weight gain in the month prior to admission - Admission weight: 86.6kg - d/c weight (different scale): 83.5kg (-2.9kg = ~6.4lb) Paroxysmal atrial flutter -- not present during admission (NSR) - s/p DC cardioversion at [facility] for atrial flutter with RVR on 11/23 - Found to be in sinus tachycardia 2/2 respiratory distress in the ED - Admitted to telemetry for continuous cardiac monitoring - Following resolution of respiratory distress, remained in sinus rhythm throughout admission - Patient states they are scheduled for an ablation around 12/14 at [facility] - Continued diltiazem 240mg PO daily - Continued home atenolol 100mg PO qAM - Continued rivaroxaban daily for anticoagulation CKD Stage II (baseline Cr ~1.0) - Remained near baseline throughout admission -- d/c BUN 19, Cr 0.96 - I&Os as above - BMP daily Chronic HTN - Elevated significantly upon arrival with SBP up to 180s -- may have been contributory to pulmonary edema - Following admission, BP was stable between 120-150s/70s - Continued home amiloride, losartan Dispo: Med/surg with Tele F/E/N: Heart healthy diet, lasix qAM with BMP PPX: Rivaroxaban for aflutter Code: DNR/DNI Outpatient Recommendations: - Patient is scheduled for ablation at [facility] around ~12/14 for atrial flutter with multiple recurrences of RVR - Consider addition of daily / PRN lasix to home regimen if further episodes occur (2) Hypertensive urgency: (3) Pulmonary edema: (4) Pleural effusion, bilateral: (5) Atrial fibrillation status post cardioversion: (6) Left atrial enlargement: (7) Mitral regurgitation: (8) Vitamin D deficiency: (9) Hyperlipidemia: (10) Atrial flutter, paroxysmal: (11) AF (paroxysmal atrial fibrillation): (12) CKD (chronic kidney disease) stage 2, GFR 60-89 ml/min: (13) Breast cancer: Total Time Total Time Spent Total Time Spent (In Minutes): . Discharge Plan Discharge Items Patient Disposition: Home - Self-Care Reason For Visit: SOB, HYPOXIA Discharge Diagnosis: acute hypoxic respiratory failure pulmonary edema HFpEF Activity: Resume your previous activity Non-emergency contact: Primary Care Provider Call non-emergency contact if: your symptoms worsen, your pain is concerning for you and your temperature is above 101.5 Follow-up/Referrals: John Dan MD [Primary Care Provider] - 12/02/19 3:30 pm Diet: Heart Healthy Addtl Attending Provider Instructions: You were seen in [facility] from 11/24 - 11/26 for evaluation and management of new cough and shortness of breath. In the emergency room, you underwent several scans (chest X-Ray, CT scan) to help better understand the source of your shortness of breath. These scans demonstrated fluid in the lungs ("pulmonary edema," "small pleural effusion") and no evidence of blood clots ("pulmonary embolism"). You also received an EKG (measures heart's electrical activity), which did not show any signs concerning for acute heart damage. Because of the fluid discovered on imaging and the history you provided regarding your recent cardioversion for atrial flutter, the source of your symptoms was thought to be from your heart being overwhelmed by too much fluid ("heart failure exacerbation"). As such, you were given water pills (diuretic) to help you get rid of this extra fluid off of your lungs and body. You showed significant improvement of your symptoms with the use of these pills throughout your stay. Upon discharge, you are to follow-up with your primary care physician within 1-2 weeks to discuss this visit. We also recommend you discuss this visit with your call center operator. - At this visit, we recommend that you discuss whether or not you should be on a diuretic (e.g., Lasix) daily, or have one on-hand daily No new medications were changed or added at this visit. If you experience any new or sudden shortness of breath +/- cough, chest pain, or concerning palpitations, please report for immediate medical evaluation either by calling 911, going to the emergency room, or contacting your primary care physician. Pending Studies at Discharge: No Stand-Alone Forms: [facility] Smoking Cessation Medications and DC Order Prescriptions: Continued atenolol 50 mg tablet See Rx Instructions .ROUTE .COMPLEX PRN (Reason: A-FIB) Qty: 20 RF: 3 diltiazem HCl 240 mg capsule,extended release 24hr 240 mg PO DAILY Qty: 30 RF: 5 coenzyme Q10 100 mg capsule 100 mg PO BID RF: 0 Curcumin 95 % powder 95 % miscellaneous QAM RF: 0 amiloride 5 mg tablet 10 mg PO QAM RF: 0 losartan 100 mg tablet 100 mg PO QAM RF: 0 rivaroxaban 20 mg tablet 20 mg PO PM RF: 0 Discharge Orders: Discharge Order (Routine); Ordered 11/27/19 Ordered By: Pepito Dumont/Other Patient Handouts: Heart Valve Problems, Heart Disease Women Admission Data Admit Date/Time: 11/26/19 01:57 Attending Provider: Ruthy Guerrero Admit Provider: Rachel Adams Primary Care Provider: John Dan Other Providers: Rachel Adams Other Interventions: Discharge Summary Assessment (RN) Last Done: 11/27/19 14:24 Supervising Physician Co-Signing Physician Notes Resident Physician Supervision Note: I independently interviewed and examined the patient and verified the lam history and physical, reviewed labs and image studies, discussed the case with the resident Dr. Bazzi and agree with the findings and care plan. Resident Activity Tracking Resident Involvement: Resident Care Provided Care Provided: [facility]
[2019-11-27 11:31] VITALS: TEMP 98.2
--- NOTE | 2019-11-27 12:29 | Electrocardiogram Report ---
Test Reason : Blood Pressure : / mmHG Vent. Rate : 105 BPM Atrial Rate : 105 BPM P-R Int : 198 ms QRS Dur : 080 ms QT Int : 328 ms P-R-T Axes : 056 058 053 degrees QTc Int : 433 ms Sinus tachycardia Septal infarct , age undetermined Abnormal ECG When compared with ECG of 30-OCT-2019 15:15, Premature atrial complexes are no longer Present Vent. rate has increased BY 40 BPM Nonspecific T wave abnormality now evident in Lateral leads Confirmed by Shiv Nicholson ([id number]) on 11/27/2019 12:28:32 PM Referred By: REFERRED SELF Confirmed By:Shiv Nicholson
[2019-11-27 14:26] VITALS: BP 124/74; PULSE 80
== END 2019-11-27 16:27 | disposition home or self-care (01) | DRG 291 ==
LOC: ED 20:47 → SUATTDRO 11-26 01:57 → 2N 11-26 01:57

== ENCOUNTER 2024-11-16 16:41 | Inpatient (IN) ==
[2024-11-16 18:36] LABS: Hematocrit (blood only) 38.7 % (37.0-47.0); Hemoglobin 13.2 g/dl (12.0-16.0); Immature Granulocytes # (auto) 0.04 K/uL (0.01-0.20); Immature Granulocytes % (auto) 0.4 %; Mean Corpuscular Hemoglobin 29.6 pg (25.0-34.0); Mean Corpuscular Volume 86.8 fL (80.0-100.0); Platelet Count 227 K/uL (130-400); RDW Standard Deviation 43.9 fL (36.4-46.3); Red Blood Count 4.46 M/uL (4.20-5.40); White Blood Count 9.41 K/ul (4.8-10.8)
[2024-11-16] MEDS: SODIUM CHLORIDE 0.9% 1,000 ML IV SCH (18:44)
[2024-11-16 18:52] LABS: Alanine Aminotransferase 19 U/L (7-52); Albumin Globulin Ratio 1.7 (0.9-2); Alkaline Phosphatase 71 U/L (34-104); Anion Gap 9 (3-11); Bilirubin,Total 0.6 mg/dl (0.2-1.0); Blood Urea Nitrogen 20 mg/dl (6-23); Calcium 10.0 mg/dl (8.6-10.3); Carbon Dioxide 25 mmol/L (21-32); Chloride 96 mmol/L (98-107); Globulin 2.9 gm/dl (2.5-4.0); Glucose 100 mg/dl (70-99(Fasting)); Magnesium 2.1 mg/dl (1.7-2.4); Potassium 4.4 mmol/L (3.5-5.1); Sodium 130 mmol/L (136-145); Total Protein 7.8 gm/dl (6.0-8.3)
[2024-11-16 19:07] LABS: Thyroid Stimulating Hormone 1.743 uIu/ml (0.300-4.500)
[2024-11-16 19:43] LABS: Chlamydia pneumoniae PCR Not Detected (NotDetected); Coronavirus 229E PCR Not Detected (NotDetected); Coronavirus CoV-2 (COVID19)PCR Not Detected (NotDetected); Coronavirus HKU1 PCR Not Detected (NotDetected); Coronavirus NL63 PCR Not Detected (NotDetected); Coronavirus OC43PCR Not Detected (NotDetected); Human Metapneumovirus PCR Not Detected (NotDetected); Parainfluenza Virus 1 PCR Not Detected (NotDetected); Parainfluenza Virus 2 PCR Not Detected (NotDetected); Parainfluenza Virus 3 PCR Not Detected (NotDetected); Parainfluenza Virus 4 PCR Not Detected (NotDetected); Respiratory Syncytial VirusPCR Not Detected (NotDetected); Rhinovirus/Enterovirus PCR DETECTED (NotDetected)
--- NOTE | 2024-11-16 19:56 | Emergency Department Note ---
Impression & Plan Weakness, GERBER (dyspnea on exertion), Enterovirus infection, Ambulatory dysfunction, Bronchitis, Acute hyponatremia ED Provider Note NAME: ALESHIA GARAY AGE: 84 SEX: F : 1940 ARRIVES VIA: Walk-In INFORMANT: Patient, ED PROVIDER(S): Prasad Pedraza MD CHIEF COMPLAINT: Weakness, fatigue, shortness of breath MEDICAL DECISION MAKING: Patient presents with the above in the setting of suggesting to be admitted yesterday but refused to do so and is back today with worsening symptoms. IV was established and blood work was obtained. Patient's sodium slightly improved from 127-130. The patient with associated wheezing on exam was ordered DuoNeb treatment IV steroids. Initial chest x-ray does not show any significant change compared to yesterday. No obvious focal consolidative change. Patient still positive for entero or rhinovirus. I did speak the on-call hospital service Dr. Adams and the patient was admitted to the medicine service. Discussion w/ other healthcare providers: Dr. Adams inpatient medicine service Prior /Outside records reviewed: None Differential diagnosis: Infection, dehydration, metabolic abnormality, hypo/hyperglycemia, electrolyte imbalance, anemia, UTI, pneumonia, thyroid dysfunction among others were considered. Diagnostics, as interpreted by me: ECG: A paced rhythm, rate of 60 a wide QRS right bundle branch block pattern no obvious STEMI, T wave inversion in lead III. Cardiac monitoring: An order was placed for continuous cardiac monitoring. The monitor shows a rate of 65 with sinus rhythm. Patient was placed on pulse oximetry Medical decision rules: None Imaging studies: I informally interpreted the patient's chest x-ray does not show obvious focal consolidative pneumonia with formal report to follow. HPI: Patient presents due to concern for weakness and fatigue. The patient has also had associated respiratory symptoms chest congestion. She states she initially began have the symptoms Saturday into Saturday and was doing some outdoor work. Patient states that she did not take anything for her symptoms at home. The patient was seen and evaluated yesterday and was suggested to be admitted but left AGAINST MEDICAL ADVICE. Patient is presenting today requesting admission as the patient is not doing well at home. The patient does complain of shortness of breath with exertion and increasing fatigue. The patient is also not ambulating well in the sense that she is too tired/weak to do so. The patient reportedly was at a family function on Saturday and had to use a cane. The patient had to use a walker on Saturday and was barely able to use a walker today. Patient denies any chest pains. She states that her cough sounds wet and has been slightly productive but is clear productive sputum. No prior history of lung disease per patient patient's son at bedside. Patient's son does provide some of the history. Patient denies any nausea vomiting or diarrhea no abdominal pain. She had a bowel movement yesterday. PAST MEDICAL HISTORY: See Below PAST SURGICAL HISTORY: See Below SOCIAL HISTORY: See Below HOME MEDICATIONS: See Below ALLERGIES: See Below VITALS: See Below PHYSICAL EXAMINATION: GENERAL: NAD, non-toxic. EYE EXAM: Normal conjunctiva. PERRL, no anisocoria and EOM's grossly intact w/o pain. OROPHARYNX: Moist mucus membranes, grossly normal dentition. NECK: Trachea midline, no stridor. LUNGS: Scant wheezes noted throughout. Normal chest wall mechanics. HEART: NSR, no MRG. ABDOMEN: Abdomen soft, non-tender, no masses, no rebound or guarding. BACK: No CVA TTP. SKIN: No rashes and no bruising. UPPER EXTREMITIES: Upper extremities are grossly normal. LOWER EXTREMITIES: Grossly normal, no edema. NEURO EXAM: Awake and alert, follows commands, no obvious facial asymmetry, normal speech, moves all 4 extremities. Past Med/Surg History Problem List (Updated 11/16/24 @ 23:17 by Prasad Pedraza MD) Acute hyponatremia (Acute) Bronchitis (Acute) Ambulatory dysfunction (Acute) Enterovirus infection (Acute) GERBER (dyspnea on exertion) (Acute) Weakness (Acute) Hyponatremia (Acute) Shortness of breath (Acute) Acute bronchitis due to Rhinovirus (Acute) Pacemaker (HFpEF) heart failure with preserved ejection fraction (Acute) Osteopenia after menopause Rheumatoid arthritis Chronic fatigue disorder Hypothyroidism Osteoarthritis Hospital discharge follow-up Proteinuria Poorly-controlled hypertension Allergy to sulfa drugs Status post ablation of atrial flutter Anemia Mitral regurgitation Acute heart failure with preserved ejection fraction (HFpEF) Atrial fibrillation status post cardioversion (Acute) Left atrial enlargement (Chronic) Mitral regurgitation Vitamin D deficiency (Acute) Hyperlipidemia (Acute) Atrial flutter, paroxysmal (Acute) Arthritis of multiple sites (Acute) Abnormal glucose measurement (Acute) AF (paroxysmal atrial fibrillation) (Acute) Hypertension (Chronic) Valvular disease (Chronic) CKD (chronic kidney disease) stage 2, GFR 60-89 ml/min (Chronic) Medical History SOB (shortness of breath) Pleural effusion, bilateral Pulmonary edema Hypertensive urgency Encounter for pre-operative examination Atrial flutter with rapid ventricular response Elevated TSH Hypokalemia Acute hypokalemia Palpitation Atrial fibrillation with RVR 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 Elevated LFTs Neck pain DJD (degenerative joint disease) Lyme disease Hypercholesteremia Hypercortisolism Surgical History History of left knee replacement 2009 History of cataract surgery History of appendectomy History of tonsillectomy and adenoidectomy H/O partial mastectomy H/O parathyroidectomy Family History Uncle Colon cancer Father Myocardial infarction Cardiac disorder Hypertension Mother Anxiety Depression Sister Kidney disease Hyperthyroidism Social History Smoking Status: Never smoker Hx Alcohol Use: No Hx Substance Use: No Preferred Language: Arabic Communication Ability: Effective Visual Impairment: Limited Hearing Ability: Normal 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 Beliefs That Will Affect Care: None Current Living Situation: Family Current Living Situation Comment: grandson lives with patient current occupational status: retired Feels Safe at Home: Yes Childhood Exposure to Second-Hand Smoke: No caffeine: Yes Dental Care, Regularly: No Physical Activity Frequency: Other Physical Activity Frequency Comment: daily chores Seatbelt Use: always Sunscreen Use: Yes Assistive Devices: None Allergies Allergies Allergy/AdvReac Type Severity Reaction Status Date / Time doxycycline Allergy Intermediate Hives Verified 11/15/24 15:45 hydrochlorothiazide Allergy Intermediate Itchy Rash Verified 11/15/24 15:45 metoprolol Allergy Intermediate Rash Verified 11/15/24 15:45 Sulfa (Sulfonamide Allergy Mild TOLERATES Verified 11/15/24 15:45 Antibiotics) LASIX doxazosin Allergy Unknown Unknown Verified 11/15/24 15:45 dronedarone [From Multaq] AdvReac Severe a-fib Verified 11/15/24 15:45 VIET Inhibitors AdvReac Intermediate Cough Verified 11/15/24 15:45 atorvastatin AdvReac Intermediate Myalgia Verified 11/15/24 15:45 Mjsqqbo-GHE-VhC Reductase AdvReac Intermediate body aches Verified 11/15/24 15:45 Inhibitor [Aehvayn-Fsh-Lxk Reductase Inhibitor] Home Meds Home Medications Medication Instructions Recorded Confirmed spironolactone 50 mg tablet 50 mg PO DAILY 03/15/20 11/16/24 acetaminophen 325 mg tablet 650 mg PO DIRECTED PRN Pain 01/24/22 11/16/24 (Tylenol) diltiazem HCl 180 mg 180 mg PO HS 01/24/22 11/16/24 capsule,extended release 24 hr amlodipine 10 mg tablet 5 mg PO DAILY 04/07/24 11/16/24 dofetilide 125 mcg capsule 125 mcg PO BID 04/07/24 11/16/24 (Tikosyn) metoprolol tartrate 25 mg tablet 25 mg PO DAILY 04/07/24 11/16/24 furosemide 40 mg tablet 20 mg PO DAILY 11/15/24 11/16/24 Previous Rx's Medication Instructions Recorded levothyroxine 25 mcg tablet 25 mcg PO DAILY #30 tabs 10/19/20 rivaroxaban 15 mg tablet 15 mg PO HS #14 tabs 07/15/24 Results & Data (ED) Vital Signs Vital Signs - 24 hr 11/16/24 17:00 11/16/24 20:02 11/16/24 20:03 Temperature 36.4 C L Temperature Source Oral Pulse Rate 64 67 69 Pulse Rate from SpO2 Sensor 70 Respiratory Rate 20 24 Respiratory Effort / Characteristics Non-Labored Respiratory Depth Normal Blood Pressure 160/78 H 158/76 H Blood Pressure Mean 105 103 Pulse Oximetry 95 96 Oxygen Delivery Method Room Air Sepsis Recent Fever Within 48 Hours No Sepsis New/Unexplained Change in Mental Status No Sepsis Action Taken by Nursing No Action Required 11/16/24 20:10 11/16/24 20:10 11/16/24 20:42 Temperature Temperature Source Pulse Rate 70 Pulse Rate from SpO2 Sensor 68 Respiratory Rate 25 H Respiratory Effort / Characteristics Respiratory Depth Blood Pressure 161/87 H Blood Pressure Mean 111 Pulse Oximetry 96 96 Oxygen Delivery Method Room Air Room Air Sepsis Recent Fever Within 48 Hours Sepsis New/Unexplained Change in Mental Status Sepsis Action Taken by Nursing 11/16/24 21:00 11/16/24 21:39 11/16/24 22:03 Temperature Temperature Source Pulse Rate 71 68 74 Pulse Rate from SpO2 Sensor 72 69 72 Respiratory Rate 20 27 H 19 Respiratory Effort / Characteristics Respiratory Depth Blood Pressure 160/86 H 160/81 H 162/72 H Blood Pressure Mean 105 107 102 Pulse Oximetry 98 94 93 Oxygen Delivery Method Sepsis Recent Fever Within 48 Hours Sepsis New/Unexplained Change in Mental Status Sepsis Action Taken by [facility] Medications Current Medication List: was personally reviewed by me Laboratory Data Attestation: I reviewed the patient's lab results. 11/16/24 18:19 11/16/24 18:19 Lab Results 11/16/24 11/16/24 Range/Units 18:19 18:46 WBC 9.41 (4.8-10.8) K/ul RBC 4.46 (4.20-5.40) M/uL Hgb 13.2 (12.0-16.0) g/dl Hct 38.7 (37.0-47.0) % MCV 86.8 (80.0-100.0) fL MCH 29.6 (25.0-34.0) pg MCHC 34.1 (32.0-36.0) g/dL RDW Std Deviation 43.9 (36.4-46.3) fL RDW Coeff of Beverley 13.9 (11.5-14.5) % Plt Count 227 (130-400) K/uL MPV 9.3 L (9.4-12.4) fL Immature Gran % (Auto) 0.4 % Neut % (Auto) 76.6 % Lymph % (Auto) 13.2 % Towns % (Auto) 7.8 % Eos % (Auto) 1.8 % Baso % (Auto) 0.2 % Neut # (Auto) 7.21 H (1.40-6.50) K/uL Lymph # (Auto) 1.24 (1.20-3.40) K/uL Towns # (Auto) 0.73 H (0.11-0.59) K/uL Eos # (Auto) 0.17 (0.00-0.50) K/uL Baso # (Auto) 0.02 (0.00-0.20) K/uL Immature Gran # (Auto) 0.04 (0.01-0.20) K/uL Sodium 130 L (136-145) mmol/L Potassium 4.4 (3.5-5.1) mmol/L Chloride 96 L (98-107) mmol/L Carbon Dioxide 25 (21-32) mmol/L Anion Gap 9 (3-11) BUN 20 (6-23) mg/dl Creatinine 1.17 (0.6-1.2) mg/dl Est Cr Clr Drug Dosing Not Reportable eGFR 46.30 BUN/Creatinine Ratio 17.1 (10-20) Glucose 100 H (70-99(Fasting)) mg/dl Calcium 10.0 (8.6-10.3) mg/dl Magnesium 2.1 (1.7-2.4) mg/dl Total Bilirubin 0.6 (0.2-1.0) mg/dl AST 20 (13-39) U/L ALT 19 (7-52) U/L Alkaline Phosphatase 71 (34-104) U/L Troponin I High Sens 5.6 (0-14) pg/ml Total Protein 7.8 (6.0-8.3) gm/dl Albumin 4.9 (3.4-5.0) gm/dl Globulin 2.9 (2.5-4.0) gm/dl Albumin/Globulin Ratio 1.7 (0.9-2) TSH 1.743 (0.300-4.500) uIu/ml Adenovirus (PCR) Not Detected (NotDetected) B. pertussis DNA (PCR) Not Detected (NotDetected) B.parapertussis DNA PCR Not Detected (NotDetected) C. pneumoniae DNA (PCR) Not Detected (NotDetected) Coronavirus OC43 (PCR) Not Detected (NotDetected) Coronavirus HKU1 (PCR) Not Detected (NotDetected) Coronavirus 229E (PCR) Not Detected (NotDetected) SARS-CoV-2 (PCR) Not Detected (NotDetected) Coronavirus NL63 (PCR) Not Detected (NotDetected) Human Metapneumovir PCR Not Detected (NotDetected) Influenza Type A (PCR) Not Detected (NotDetected) Influenza Type B (PCR) Not Detected (NotDetected) M. pneumoniae (PCR) Not Detected (NotDetected) Parainfluenza 1 (PCR) Not Detected (NotDetected) Parainfluenza 2 (PCR) Not Detected (NotDetected) Parainfluenza 3 (PCR) Not Detected (NotDetected) Parainfluenza 4 (PCR) Not Detected (NotDetected) RSV (PCR) Not Detected (NotDetected) Entero/Rhino (PCR) DETECTED A (NotDetected) Administered Medications Discontinued Medications Albuterol (Albut/Ipratrop 3mg/0.5mg Neb 3 Ml Vial) 3 ml NEB NOW STA; Protocol Stop: 11/16/24 20:31 Last Admin: 11/16/24 20:40 Dose: 3 ml Documented By: KATIE Sodium Chloride (Nss) 1,000 mls @ 999 mls/hr IV .Q1H1M FRANCISCO Stop: 11/16/24 18:00 Last Infusion: 11/16/24 20:04 Dose: Infused Documented By: Admin: 11/16/24 18:44 Dose: 999 mls/hr Documented By: RADHA Methylprednisolone (Methylprednisolone 125 Mg/2 Ml Vial) 125 mg IV NOW STA Stop: 11/16/24 20:31 Last Admin: 11/16/24 20:40 Dose: 125 mg Documented By: KATIE Rivaroxaban (Rivaroxaban 15 Mg Tab) 15 mg PO NOW STA Stop: 11/16/24 22:33 Last Admin: 11/16/24 22:42 Dose: 15 mg Documented By: VINCENT Imaging Data Radiologist's Impression: Chest X-Ray 11/16/24 17:00 Single frontal view of the chest Comparison made to prior exam dated 01/24/2022 Impression No acute pulmonary pathology. Postoperative changes left chest wall intracardiac device, new since prior exam. Heart size measures upper limits of normal. Electronically signed by Pepito Colon 11-16-2024 8:52 PM Discharge Plan Visit Data Chief Complaint: Weakness Stated Complaint: ILLNESS, WEAKNESS, LACK OF BALANCE, CONGESTION ED Provider: Prasad Pedraza Discharge Problem: Weakness, GERBER (dyspnea on exertion), Enterovirus infection, Ambulatory dysfunction, Bronchitis, Acute hyponatremia Patient Disposition: Admitted As Inpatient Condition: Good
[2024-11-16] MEDS: ALBUT/IPRATROP 3MG/0.5MG NEB 3 ML VIAL NEB STA (20:40)
--- NOTE | 2024-11-16 20:53 | XRay Report ---
Single frontal view of the chest Comparison made to prior exam dated 01/24/2022 Impression No acute pulmonary pathology. Postoperative changes left chest wall intracardiac device, new since prior exam. Heart size measures upper limits of normal. Electronically signed by Pepito Colon 11-16-2024 8:52 PM
--- NOTE | 2024-11-16 21:49 | History & Physical Report ---
Date of Service November 16, 2024 Assessment & Plan (1) Enterovirus infection: (2) Hyponatremia: Plan 84-year-old female PMHx A-fib on rivaroxaban, h/o breast cancer, HTN, HLD, CKD stage II, valvular disease/MR, RA, vitamin D deficiency, and osteopenia presenting after recent ED visit and diagnosis of enterovirus/rhinovirus who is now presenting for worsening of symptoms with mainly increased weakness and cough. She did leave AMA after being recommended for admission. Her evaluation was positive for enterovirus/rhinovirus, CXR is without any acute findings. She does have hyponatremia on admission also in setting of recent poor intake. #Entero/Rhinovirus Complaining of weakness and cough/SOB. She is having conversational dyspnea on admitting exam and with wheezing throughout. Pt is not on O2 at baseline. Medication interactions checked with pharmacist at time of admission to include interactions with Tikosyn vs methylprednisolone and DuoNebs. Pt has not been hypoxic. Not septic. - CBC without leukocytosis or leukopenia, H&H stable; CMP sodium 130, glucose 100 - CBC, BMP am - CXR no acute findings - EKG atrial paced, RBBB, T wave abnormality - BioFire (+) Entero/Rhinovirus - Fall precautions - IS + FV - O2 prn - Acetaminophen prn pain/fever - DuoNeb rox, hypertonic saline nebs rox - Methylprednisolone 40mg IV daily - Deferred abx at time of admission given viral illness, - Offered PT/OT -- declined at time of admission, but if weakness does not improve then should consider adding on #Hyponatremia Likely secondary to poor intake since being ill ~ 1 week; Na has actually increased some since last drawn on the day [employer] (127--> 130). Does follow low Na diet. On Furosemide daily. - Na 130, glucose 100 - BMP am - Serum osmol, urine Na, and urine osmol pending - Hold Lasix at time of admission, add back pending Na levels - IVF LR @ 80 mL/hr #PAF/MR/HTN/HFpEF- Follows with cardiology, most recent visit 04/07/2024; Amlodipine, diltiazem, dofetilide, metoprolol, furosemide, Xarelto - Hold furosemide, continue remaining #RA- Stable; Acetaminophen prn pain - continue #CKD- Cr 1.17 at admission - BMP am #Hypothyroidism- Levothyroxine - continue #H/o L infiltrating ductal BCA- S/p partial mastectomy (05/2013), radiation, and 6 years on tamoxifen - stable CAUTION with addition of new medications considering multitude of drug interactions with Tikosyn. Dispo: Admit, med/tele VTE Prophylaxis: Xarelto - continue This document was dictated utilizing [employer]. Please excuse any grammatical errors that may be secondary to use of this software. Admission and Anticipated Discharge Date Admission Date: 11/16/2024 History of Present Illness Chief Complaint: Weakness Primary Care Provider: Amy Hidalgo MD 84-year-old female PMHx A-fib on rivaroxaban, h/o breast cancer, HTN, HLD, CKD stage II, valvular disease/MR, RA, vitamin D deficiency, and osteopenia presenting after recent ED visit and diagnosis of enterovirus/rhinovirus who is now presenting for worsening of symptoms with mainly increased weakness and cough. She did leave AMA after being recommended for admission on 11/15/2024. Presenting now for worsening weakness and difficulties with clearing congestion. These symptoms have been occurring for ~ 1 week [employer]. She recalls working on her flower bed when she started to have allergy-type symptoms that did not seem to improve over time. She was seen in the ED the day [employer] for the symptoms but felt that they would resolve. Returns the day of arrival given worsening weakness and SOB. States that she is coughing and having a clear mucus being produced. She does not have F/C. She admits also to URI symptoms, mainly rhinorrhea and nasal congestion. She is limited in what medications she can take given multiple drug interactions with her antiarrhythmic, Tikosyn, which she was started on in Mar after 4 cardiac ablations for Afib. She does have a pacer. She does state that the weakness has worsened to the extent that she felt she could not get out of bed the day of arrival. Her oral intake has been limited since becoming ill. She feels SOB at all times. No O2 at baseline. Denies CP, palpitations, abdominal pain, N/V/D/C, numbness/tingling, LUTS, syncope, or falls. ED evaluation reveals CBC without leukocytosis, stable H&H; CMP sodium 130, chloride 96, glucose 100; magnesium 2.1; troponin 5.6; TSH 1.743; BioFire positive for enterovirus/rhinovirus; CXR no acute pulmonary pathology, postop changes L chest wall intracardiac device, heart size measures up over normal; EKG atrial paced rhythm, RBBB, T wave abnormality at 60 bpm.; Provided with 1L NSS, methylprednisolone 125 mg IV, and albuterol 3 mL nebulized in ED. Please see Dr. Adams's attestation for adjustments/additions to treatment plan. Allergies Allergy/AdvReac Type Severity Reaction Status Date / Time doxycycline Allergy Intermediate Hives Verified 11/15/24 15:45 hydrochlorothiazide Allergy Intermediate Itchy Rash Verified 11/15/24 15:45 metoprolol Allergy Intermediate Rash Verified 11/15/24 15:45 Sulfa (Sulfonamide Allergy Mild TOLERATES Verified 11/15/24 15:45 Antibiotics) LASIX doxazosin Allergy Unknown Unknown Verified 11/15/24 15:45 dronedarone [From Multaq] AdvReac Severe a-fib Verified 11/15/24 15:45 VIET Inhibitors AdvReac Intermediate Cough Verified 11/15/24 15:45 atorvastatin AdvReac Intermediate Myalgia Verified 11/15/24 15:45 Bbigcak-FEW-KaM Reductase AdvReac Intermediate body aches Verified 11/15/24 15:45 Inhibitor [Pbthgbr-Jhq-Pfb Reductase Inhibitor] Home Medications Medication Instructions Recorded Confirmed Type spironolactone 50 mg tablet 50 mg PO DAILY 03/15/20 11/16/24 History levothyroxine 25 mcg tablet 25 mcg PO DAILY #30 tabs 10/19/20 11/16/24 Rx acetaminophen 325 mg tablet 650 mg PO DIRECTED PRN Pain 01/24/22 11/16/24 History (Tylenol) diltiazem HCl 180 mg 180 mg PO HS 01/24/22 11/16/24 History capsule,extended release 24 hr amlodipine 10 mg tablet 5 mg PO DAILY 04/07/24 11/16/24 History dofetilide 125 mcg capsule 125 mcg PO BID 04/07/24 11/16/24 History (Tikosyn) metoprolol tartrate 25 mg tablet 25 mg PO DAILY 04/07/24 11/16/24 History rivaroxaban 15 mg tablet 15 mg PO HS #14 tabs 07/15/24 11/16/24 Rx furosemide 40 mg tablet 20 mg PO DAILY 11/15/24 11/16/24 History Past Med/Surg History Problem List (Updated 11/16/24 @ 23:17 by Prasad Pedraza MD) Acute hyponatremia (Acute) Bronchitis (Acute) Ambulatory dysfunction (Acute) Enterovirus infection (Acute) GERBER (dyspnea on exertion) (Acute) Weakness (Acute) Hyponatremia (Acute) Shortness of breath (Acute) Acute bronchitis due to Rhinovirus (Acute) Pacemaker (HFpEF) heart failure with preserved ejection fraction (Acute) Osteopenia after menopause Rheumatoid arthritis Chronic fatigue disorder Hypothyroidism Osteoarthritis Hospital discharge follow-up Proteinuria Poorly-controlled hypertension Allergy to sulfa drugs Status post ablation of atrial flutter Anemia Mitral regurgitation Acute heart failure with preserved ejection fraction (HFpEF) Atrial fibrillation status post cardioversion (Acute) Left atrial enlargement (Chronic) Mitral regurgitation Vitamin D deficiency (Acute) Hyperlipidemia (Acute) Atrial flutter, paroxysmal (Acute) Arthritis of multiple sites (Acute) Abnormal glucose measurement (Acute) AF (paroxysmal atrial fibrillation) (Acute) Hypertension (Chronic) Valvular disease (Chronic) CKD (chronic kidney disease) stage 2, GFR 60-89 ml/min (Chronic) Medical History SOB (shortness of breath) Pleural effusion, bilateral Pulmonary edema Hypertensive urgency Encounter for pre-operative examination Atrial flutter with rapid ventricular response Elevated TSH Hypokalemia Acute hypokalemia Palpitation Atrial fibrillation with RVR 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 Elevated LFTs Neck pain DJD (degenerative joint disease) Lyme disease Hypercholesteremia Hypercortisolism Surgical History History of left knee replacement 2008 History of cataract surgery History of appendectomy History of tonsillectomy and adenoidectomy H/O partial mastectomy H/O parathyroidectomy Family History Uncle Colon cancer Father Myocardial infarction Cardiac disorder Hypertension Mother Anxiety Depression Sister Kidney disease Hyperthyroidism Social History Smoking Status: Never smoker Hx Alcohol Use: No Hx Substance Use: No Preferred Language: Chinese Communication Ability: Effective Visual Impairment: Limited Hearing Ability: Normal 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: No Beliefs That Will Affect Care: None Current Living Situation: Family Current Living Situation Comment: grandson lives with patient current occupational status: retired Feels Safe at Home: Yes Childhood Exposure to Second-Hand Smoke: No caffeine: Yes Dental Care, Regularly: No Physical Activity Frequency: Other Physical Activity Frequency Comment: daily chores Seatbelt Use: always Sunscreen Use: Yes Assistive Devices: None Review of Systems Review of Systems: All systems reviewed & are unremarkable except as noted in Subjective Physical Exam Physical Exam: General: No acute distress Skin: Warm and dry Head: Normocephalic, atraumatic Eyes: PERRL, conjunctivae clear, sclera non-icteric; wearing glasses ENT: External ear and ear canal without swelling; nose atraumatic; good dentition, tongue normal appearance, pharynx normal Neck: Supple, no LAD Cardio: RRR, no M/G/R, S1 and S2 normal Resp: No respiratory distress; Conversationally dyspneic; Decreased lung sounds throughout, diffuse inspiratory and expiratory wheezing, faint crackles base Abdomen: Soft, symmetric, nontender; No masses or hepatosplenomegaly; Bowel sounds normoactive MSK: No deformities; pulses palpable and equal; no edema. Neuro: Awake, alert; Sensation intact bilaterally; CN grossly intact Psych: Appropriate mood and affect; good judgement and insight. Son is present in room at time of visit. Results & Data Results & Data Vital Signs (Past 12 Hours) Vital Signs Temp Pulse Resp BP Pulse Ox O2 Del Method 11/16/24 21:00 71 20 160/86 H 98 11/16/24 20:42 70 25 H 161/87 H 96 11/16/24 20:10 96 Room Air 11/16/24 20:10 Room Air 11/16/24 20:03 69 24 158/76 H 96 11/16/24 20:02 67 11/16/24 17:00 36.4 C L 64 20 160/78 H 95 Room Air Laboratory Results 11/16/24 11/16/24 18:46 18:19 WBC 9.41 RBC 4.46 Hgb 13.2 Hct 38.7 MCV 86.8 MCH 29.6 MCHC 34.1 RDW Std Deviation 43.9 RDW Coeff of Beverley 13.9 Plt Count 227 MPV 9.3 L Immature Gran % (Auto) 0.4 Neut % (Auto) 76.6 Lymph % (Auto) 13.2 Wilkin % (Auto) 7.8 Eos % (Auto) 1.8 Baso % (Auto) 0.2 Neut # (Auto) 7.21 H Lymph # (Auto) 1.24 Wilkin # (Auto) 0.73 H Eos # (Auto) 0.17 Baso # (Auto) 0.02 Immature Gran # (Auto) 0.04 Sodium 130 L Potassium 4.4 Chloride 96 L Carbon Dioxide 25 Anion Gap 9 BUN 20 Creatinine 1.17 Est Cr Clr Drug Dosing Not Reportable eGFR 46.30 BUN/Creatinine Ratio 17.1 Glucose 100 H Calcium 10.0 Magnesium 2.1 Total Bilirubin 0.6 AST 20 ALT 19 Alkaline Phosphatase 71 Troponin I High Sens 5.6 Total Protein 7.8 Albumin 4.9 Globulin 2.9 Albumin/Globulin Ratio 1.7 TSH 1.743 Adenovirus (PCR) Not Detected B. pertussis DNA (PCR) Not Detected B.parapertussis DNA PCR Not Detected C. pneumoniae DNA (PCR) Not Detected Coronavirus OC43 (PCR) Not Detected Coronavirus HKU1 (PCR) Not Detected Coronavirus 229E (PCR) Not Detected SARS-CoV-2 (PCR) Not Detected Coronavirus NL63 (PCR) Not Detected Human Metapneumovir PCR Not Detected Influenza Type A (PCR) Not Detected Influenza Type B (PCR) Not Detected M. pneumoniae (PCR) Not Detected Parainfluenza 1 (PCR) Not Detected Parainfluenza 2 (PCR) Not Detected Parainfluenza 3 (PCR) Not Detected Parainfluenza 4 (PCR) Not Detected RSV (PCR) Not Detected Entero/Rhino (PCR) DETECTED A Diagnostic Findings Chest X-Ray 11/16/24 17:00 Single frontal view of the chest Comparison made to prior exam dated 01/24/2022 Impression No acute pulmonary pathology. Postoperative changes left chest wall intracardiac device, new since prior exam. Heart size measures upper limits of normal. Electronically signed by Pepito Colon 11-16-2024 8:52 PM Medications Administered 1L NSS Methylprednisolone 125 mg IV 3 mL neb ECG Additional Comments: Atrial paced rhythm, RBBB, T wave abnormality 60 bpm, GA 172, QRS 128, QT/QTc 470/470, PRT 51/27/-8 Code Status & VTE Plan Code Status Full Supervising Physician Co-Signing Physician Notes Patient seen and examined, chart reviewed, case discussed with YUNIOR Brock and I agree with the assessment and plan as above. Patient with AF on Dofetilide and Rivaroxaban, HTN, HLP, CKD presenting with worsening weakness and cough. Found with enterovirus. Mildly improving hyponatremia with Tg=015 VSS - patient did experience some chest discomfort following and Albuterol neb given in the ER -Admit to medical with telemetry -Gentle IVF -Continue home medications -Trend Na -PT/OT evaluations appreciated -Remainder as above PG Care Time/CCT Total # of Minutes Spent Total Time Spent with Patient: Total time spent is greater than 50% in coordination of care (as documented) at patient's floor/unit and/or counseling patient: Coding Level of Care Code 25467 INT INP/OBS CARE 3/75MIN Diagnoses Enterovirus infection B34.1 Hyponatremia E87.1
[2024-11-16] MEDS: RIVAROXABAN 15 MG TAB PO STA (22:42)
[2024-11-16] MEDS: ALBUT/IPRATROP 3MG/0.5MG NEB 3 ML VIAL NEB SCH (23:37)
[2024-11-16] MEDS: SODIUM CHLOR 7% 4 ML NEB NEB SCH (23:37)
[2024-11-17] MEDS: LACTATED RINGER'S 1,000 ML IV SCH (00:41)
[2024-11-17 01:13] LABS: Appearance Urine Clear (Clear); Bacteria Urine Automated None Seen (None Seen); Cast Urine Automated 0-2 /lpf (0-2); Epithelial Cell Urine Auto 0-2 /hpf (0-2); Glucose Urine UA Negative (Negative); RBC Urine Automated 0-2 /hpf (0-2); WBC Urine Automated 0-5 /hpf (0-5)
[2024-11-17] MEDS ORDERED: ALBUT/IPRATROP 3MG/0.5MG NEB 3 ML VIAL NEB PRN (02:24)
[2024-11-17 05:00] LABS: Hematocrit (blood only) 36.6 % (37.0-47.0); Hemoglobin 12.4 g/dl (12.0-16.0); Mean Corpuscular Hemoglobin 29.3 pg (25.0-34.0); Mean Corpuscular Volume 86.5 fL (80.0-100.0); Platelet Count 234 K/uL (130-400); RDW Standard Deviation 43.3 fL (36.4-46.3); Red Blood Count 4.23 M/uL (4.20-5.40); White Blood Count 9.36 K/ul (4.8-10.8)
[2024-11-17 05:16] LABS: Anion Gap 15.0 (3-11); Blood Urea Nitrogen 18.0 mg/dl (6-23); Calcium 9.5 mg/dl (8.6-10.3); Carbon Dioxide 18.0 mmol/L (21-32); Chloride 100.0 mmol/L (98-107); Creatinine Clr Calc Pharmacy 38.1 ml/min; Glucose 213.0 mg/dl (70-99(Fasting)); Potassium 3.9 mmol/L (3.5-5.1); Sodium 133.0 mmol/L (136-145)
[2024-11-17 07:32] LABS: Base Excess VBG -5.0 mEq/L; HCO3 VBG 18 mmol/L; Oxygen Saturation VBG 96.5 %; PCO2 VBG 29 mmHg (38-50); PO2 VBG 76 mmHg; pH VBG 7.41 (7.36-7.41)
[2024-11-17] MEDS: LEVOTHYROXINE SODIUM 25 MCG TABLET PO SCH (09:02)
[2024-11-17] MEDS: METOPROLOL TARTRATE 25 MG TAB PO SCH (09:03)
[2024-11-17] MEDS: SPIRONOLACTONE 25 MG TAB PO SCH (09:03)
[2024-11-17] MEDS: DOFETILIDE 125 MCG CAPSULE PO SCH (09:03)
--- NOTE | 2024-11-17 10:12 | CT Scan Report ---
CT SCAN OF THE BRAIN WITHOUT IV CONTRAST CLINICAL HISTORY: Strokelike symptoms. Weakness. COMPARISON STUDY: No priors TECHNIQUE: Unenhanced axial CT scan of the brain is performed from the vertex to the skull base. Imag es are reviewed in the axial, sagittal, coronal planes. A dose lowering technique was utilized adheri ng to the principles of ALARA. CT DOSE: 625.8 mGy.cm FINDINGS: Brain parenchyma: There is age-related involutional change noting moderate subcortical and periventri cular microangiopathic disease. There is no hemorrhage, mass effect, or evidence of acute territorial ischemia by CT criteria. Galvez-white matter differentiation is preserved. No extra-axial fluid collec tion is seen. Ventricles, sulci, cisterns: Prominent secondary to involutional change. Intracranial vasculature: There is atherosclerotic calcification of the cavernous carotid and vertebr al arteries. Calvarium: Unremarkable. Sinuses and mastoids: There is moderate mucosal thickening within the ethmoid sinuses and the right f rontal sinus. Trace because of thickening is seen within the left maxillary antrum. The mastoid air c ells are well pneumatized. Orbits: The bony orbits are grossly intact. There are bilateral ocular lens implants. IMPRESSION: There is no hemorrhage, mass effect, or evidence of acute territorial ischemia by CT josie rodríguez. ACT 112: Negative or not required by law. Electronically signed by: Ace Landavrede M.D. 11/17/2024 10:10 AM
--- NOTE | 2024-11-17 13:50 | Hospitalist Progress Note ---
Date of Service November 17, 2024 Assessment & Plan (1) Viral illness: Plan: Supportive care. IV fluids. Lasix is on hold. Parenteral steroid ordered. (2) Acute metabolic encephalopathy: Plan: Supportive care. Expect encephalopathy to eventually resolve as virus resolves (3) Hyponatremia: Plan: Sodium 127 on admission, improved to 133 with IV fluids. Serum osmolarity 274 on admission. Doubt SIADH (4) Chronic atrial fibrillation: Plan: With permanent cardiac pacemaker. Currently on Xarelto. Telemetry. Rate control measures (5) Chronic kidney disease, stage III (moderate): Plan: Monitor intake and output. Serial labs Plan Hopeful discharge to home within the next day or 2 Admission and Anticipated Discharge Date Admission Date: November 16, 2024 Subjective Alert and oriented. No distress. Multiple family members are present. They are concerned that she has had a CVA because she is exhibiting some encephalopathy symptoms probably from the acute viral illness. Head CT scan was obtained and is negative. She has mild hyponatremia on admission with serum osmolarity 274. Sodium since improved to 133 with IV fluids. Lasix is on hold. OT and PT assessments requested. Hopefully she will be able to go home within the next day or 2. Review of Systems 2 Review of Systems: Constitutionalno fever or chills ENTno blurred vision, no double vision, no epistaxis, no sore throat Respiratoryno cough, no wheezing, no shortness of breath Cardiacno palpitations, no chest pain, no syncope Luana nausea, vomiting, diarrhea, melena, hematochezia GUno urinary retention, no urinary incontinence, no dysuria, no hematuria Musculoskeletalno joint pain, no muscle tenderness Skinno bruising, no rashes, no pruritus Neurono isolated weakness, no paresthesia. Generalized weakness Psychno depression, no anxiety Physical Exam 2 Physical Exam: General-alert and oriented x3, no fever, no chills HEENT-head atraumatic and normocephalic, pupils equal and reactive to light, extraocular muscles intact Neck-no lymphadenopathy or thyromegaly, trachea midline Chest-clear to auscultation. No rales, wheezing or rhonchi Cardiac-regular rate and rhythm, normal S1 and S2 Abdomen-normal bowel sounds, no hepatosplenomegaly Extremities-no cyanosis, clubbing, or edema Neuro-cranial nerves II through XII intact, motor and sensory function within normal limits, strength symmetrical, no focal deficits Psych-normal affect, normal mood Results & Data Results & Data Vital Signs (Past 12 Hours) Vital Signs Temp Pulse Pulse Resp BP BP Pulse Ox 11/17/24 12:36 36.7 C 70 18 143/74 H 94 11/17/24 12:26 74 11/17/24 08:55 87 27 H 147/76 H 95 11/17/24 07:18 11/17/24 07:14 36.6 C 83 22 135/89 94 11/17/24 07:02 79 18 94 11/17/24 06:13 82 17 161/87 H 94 11/17/24 05:03 83 22 95 11/17/24 05:00 152/74 H 11/17/24 04:57 88 24 95 11/17/24 04:42 81 19 92 11/17/24 04:30 136/79 11/17/24 04:30 136/79 11/17/24 04:00 153/82 H 11/17/24 03:32 127/108 H 11/17/24 03:18 80 19 94 11/17/24 03:06 82 23 90 11/17/24 03:00 147/80 H 11/17/24 02:57 82 20 91 11/17/24 02:48 82 20 93 11/17/24 02:30 151/80 H 11/17/24 02:18 83 20 11/17/24 02:09 86 21 92 O2 Del Method 11/17/24 12:36 Room Air 11/17/24 12:26 11/17/24 08:55 Room Air 11/17/24 07:18 Room Air 11/17/24 07:14 Room Air 11/17/24 07:02 Room Air 11/17/24 06:13 Room Air 11/17/24 05:03 11/17/24 05:00 11/17/24 04:57 11/17/24 04:42 11/17/24 04:30 11/17/24 04:30 11/17/24 04:00 11/17/24 03:32 11/17/24 03:18 11/17/24 03:06 11/17/24 03:00 11/17/24 02:57 11/17/24 02:48 11/17/24 02:30 11/17/24 02:18 11/17/24 02:09 Laboratory Results 11/17/24 04:33 11/17/24 04:33 PG Care Time/CCT Total # of Minutes Spent Total Time Spent with Patient: Total time spent is greater than 50% in coordination of care (as documented) at patient's floor/unit and/or counseling patient: Coding Level of Care Code 04821 SUB INP/OBS CARE 3/50MIN Diagnoses Viral illness B34.9 Acute metabolic encephalopathy G93.41 Hyponatremia E87.1 Chronic atrial fibrillation I48.20 Chronic kidney disease, stage III (moderate) N18.30
--- NOTE | 2024-11-17 15:22 | CT Scan Report ---
CT head/brain wo con CLINICAL HISTORY: left sided weakness, dysarthria, stroke alert. TECHNIQUE: Multiple axial CT images of the head were obtained without contrast. A dose lowering tech nique was utilized adhering to the principles of ALARA. CT DOSE: 1100.35 mGy.cm COMPARISON: 11/17/2024 FINDINGS: There is motion artifact. No intracranial hemorrhage seen. No mass effect, midline shift, o r hydrocephalus. The stable moderate chronic small vessel ischemic changes. No skull fracture seen. IMPRESSION: No acute findings. ACT 112: Negative or not required by law. The above report was generated using voice recognition software. It may contain grammatical, syntax o r spelling errors. Electronically signed by: Abdoul Nunez M.D. 11/17/2024 3:21 PM
[2024-11-17] MEDS: ASPIRIN 81 MG ECTAB PO SCH (16:13)
[2024-11-17] MEDS: RIVAROXABAN 15 MG TAB PO SCH (20:19)
[2024-11-18 07:16] LABS: Hematocrit (blood only) 39.9 % (37.0-47.0); Hemoglobin 12.7 g/dl (12.0-16.0); Immature Granulocytes # (auto) 0.15 K/uL (0.01-0.20); Immature Granulocytes % (auto) 1.1 %; Mean Corpuscular Hemoglobin 29.7 pg (25.0-34.0); Mean Corpuscular Volume 93.2 fL (80.0-100.0); Platelet Count 206 K/uL (130-400); RDW Standard Deviation 47.8 fL (36.4-46.3); Red Blood Count 4.28 M/uL (4.20-5.40); White Blood Count 14.03 K/ul (4.8-10.8)
[2024-11-18 07:30] LABS: Anion Gap 11.0 (3-11); Blood Urea Nitrogen 32.0 mg/dl (6-23); Calcium 9.6 mg/dl (8.6-10.3); Carbon Dioxide 21.0 mmol/L (21-32); Chloride 103.0 mmol/L (98-107); Creatinine Clr Calc Pharmacy 41.7 ml/min; Glucose 128.0 mg/dl (70-99(Fasting)); Potassium 5.0 mmol/L (3.5-5.1); Sodium 135.0 mmol/L (136-145)
--- NOTE | 2024-11-18 09:14 | XRay Report ---
SINGLE VIEW CHEST CLINICAL HISTORY: Dyspnea. Wheezing FINDINGS: An AP, portable, upright chest radiograph is compared to study dated 11/16/2024 and correlat ed with chest CT dated 11/25/2019. A 2-lead cardiac pacemaker is unchanged in position. The heart is e nlarged noting atherosclerotic calcification of the thoracic aorta. There is mild pulmonary vascular congestion. Atelectasis is noted at the lung bases. No large pleural effusion or pneumothorax is seen . The skeletal structures are osteopenic. The bony thorax is grossly intact. IMPRESSION: 1. Cardiomegaly and cardiac pacemaker with pulmonary vascular congestion. 2. No airspace consolidation or large pleural effusion is identified. ACT 112: Negative or not required by law. Electronically signed by: Ace Landaverde M.D. 11/18/2024 9:12 AM
[2024-11-18] MEDS: FUROSEMIDE 40 MG/4 ML VIAL IV ONE (09:59)
[2024-11-18] MEDS: IPRATROPIUM BROMIDE NEB SOLN 0.02% 0.5MG/2.5ML VIAL NEB STA (10:46)
[2024-11-18] MEDS: IPRATROPIUM BROMIDE NEB SOLN 0.02% 0.5MG/2.5ML VIAL NEB SCH (10:46)
--- NOTE | 2024-11-18 12:26 | Hospitalist Progress Note ---
Date of Service November 18, 2024 Assessment & Plan (1) Stroke-like symptoms: Plan: Stroke alert was called yesterday, November 17. Aspirin 81 mg has been added to the regimen. [address] scans are negative for hemorrhage or evidence of acute CVA. Brain MRI scan will be done today and is pending, November 18. Continue OT and PT. Supportive care (2) Viral illness: Plan: Supportive care. IV fluids have been discontinued. Lasix is on hold. Continue parenteral steroid therapy. (3) Acute metabolic encephalopathy: Plan: Present on admission. Now resolved (4) Hyponatremia: Plan: Now resolved. Sodium 127 on admission, improved to 135 with IV fluids. Serum osmolarity 274 on admission. Doubt SIADH (5) Chronic atrial fibrillation: Plan: With permanent cardiac pacemaker. Currently on Xarelto. Telemetry. Rate control measures (6) Chronic kidney disease, stage III (moderate): Plan: Monitor intake and output. Serial labs Plan The patient probably will need rehab placement at the time of discharge, hopefully within the next several days Admission and Anticipated Discharge Date Admission Date: November 16, 2024 Subjective Alert and oriented. She continues to have left hemiparesis. Her pacemaker is MRI compatible according to [facility] and she will undergo brain MRI scan today, November 18. [address] scans have been done this admission, both negative for hemorrhage or acute CVA. A stroke alert was called yesterday, November 17, and aspirin 81 mg daily has been added. Chest x-ray was done this morning, November 18, because of respiratory difficulty and wheezing but no new findings seen. Albuterol was removed from her nebulizer treatments due to it causing tachycardia and she will be receiving ipratropium nebulizers going forward. Parenteral Solu-Medrol has been increased to every 8 hour dosing. OT and PT assessments ordered and pending. She probably will need rehab placement at discharge. Review of Systems 2 Review of Systems: Constitutionalno fever or chills ENTno blurred vision, no double vision, no epistaxis, no sore throat Respiratoryno cough, no wheezing, no shortness of breath Cardiacno palpitations, no chest pain, no syncope Luana nausea, vomiting, diarrhea, melena, hematochezia GUno urinary retention, no urinary incontinence, no dysuria, no hematuria Musculoskeletalno joint pain, no muscle tenderness Skinno bruising, no rashes, no pruritus Neuroleft-sided weakness. Mild dysarthria. Psychno depression, no anxiety Physical Exam 2 Physical Exam: General-alert and oriented x3, no fever, no chills HEENT-head atraumatic and normocephalic, pupils equal and reactive to light, extraocular muscles intact Neck-no lymphadenopathy or thyromegaly, trachea midline Chest-clear to auscultation. No rales, wheezing or rhonchi Cardiac-regular rate and rhythm, normal S1 and S2 Abdomen-normal bowel sounds, no hepatosplenomegaly Extremities-no cyanosis, clubbing, or edema Neuro-cranial nerves II through XII intact. She has left-sided weakness more pronounced in the left arm than the left the leg. Speech is mildly dysarthric but easily understandable Psych-depressed affect Results & Data Results & Data Vital Signs (Past 12 Hours) Vital Signs Temp Pulse Pulse Resp BP Pulse Ox O2 Del Method 11/18/24 11:33 36.5 C 59 L 18 152/82 H 97 Nasal Cannula 11/18/24 10:48 67 18 95 Nasal Cannula 11/18/24 10:35 Nasal Cannula 11/18/24 08:02 36.4 C L 62 18 146/76 H 97 Nasal Cannula 11/18/24 07:29 64 11/18/24 06:05 66 17 96 Nasal Cannula 11/18/24 03:41 36.5 C 65 18 160/71 H 97 Nasal Cannula 11/18/24 00:57 36.7 C 70 18 151/74 H 95 Nasal Cannula O2 Flow Rate 11/18/24 11:33 3 11/18/24 10:48 3 11/18/24 10:35 2 11/18/24 08:02 3 11/18/24 07:29 11/18/24 06:05 2 11/18/24 03:41 2 11/18/24 00:57 2 Laboratory Results 11/18/24 06:54 11/18/24 06:54 PG Care Time/CCT Total # of Minutes Spent Total Time Spent with Patient: Total time spent is greater than 50% in coordination of care (as documented) at patient's floor/unit and/or counseling patient: Coding Level of Care Code 92478 SUB INP/OBS CARE 3/50MIN Diagnoses Stroke-like symptoms R29.90 Viral illness B34.9 Acute metabolic encephalopathy G93.41 Hyponatremia E87.1 Chronic atrial fibrillation I48.20 Chronic kidney disease, stage III (moderate) N18.30
--- NOTE | 2024-11-18 13:22 | Magnetic Resonance Report ---
MRI OF THE BRAIN WITHOUT IV CONTRAST CLINICAL HISTORY: Sudden onset weakness and slurred speech. COMPARISON STUDY: Head CT November 17, 2024. TECHNIQUE: MRI of the brain was performed utilizing various T1 and T2-weighted sequences in the axial , sagittal, and coronal planes. IV contrast was not administered for this examination. FINDINGS: There is an 8 mm focus of restricted diffusion within the right anterior superior medulla s hown on axial diffusion-weighted sequence image 6 of 25. There is subtle associated T2 hyperintensity . This is difficult to assess on the ADC sequence given its small size but appears hypointense on the thin cut ADC sequence. No associated mass effect is present. There is no acute intracranial hemorrha ge. Ventricular system is unremarkable. Basal cisterns are patent. No additional foci of restricted d iffusion are present. Multiple white matter T2 hyperintense foci suggest moderate small vessel diseas e. No intracranial masses are identified on unenhanced exam. IMPRESSION: 1. 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 No mass effect or evidence for hemo rrhagic conversion. This finding will be called/faxed to the ordering provider at time of dictation. 2. Moderate small vessel disease. ACT 112: Negative or not required by law. Electronically signed by: Daniel Shafer M.D. 11/18/2024 1:20 PM
[2024-11-18] MEDS ORDERED: methylPREDNISolone 10 mg/mL (For Ped Dose < 7mg) IV SCH (17:00)
[2024-11-19 06:45] LABS: Anion Gap 10.0 (3-11); Blood Urea Nitrogen 47.0 mg/dl (6-23); Calcium 9.8 mg/dl (8.6-10.3); Carbon Dioxide 25.0 mmol/L (21-32); Chloride 102.0 mmol/L (98-107); Creatinine Clr Calc Pharmacy 37.2 ml/min; Glucose 140.0 mg/dl (70-99(Fasting)); Potassium 4.6 mmol/L (3.5-5.1); Sodium 137.0 mmol/L (136-145)
[2024-11-19 07:14] LABS: Hematocrit (blood only) 39.1 % (37.0-47.0); Hemoglobin 13.1 g/dl (12.0-16.0); Immature Granulocytes # (auto) 0.20 K/uL (0.01-0.20); Immature Granulocytes % (auto) 1.6 %; Mean Corpuscular Hemoglobin 29.5 pg (25.0-34.0); Mean Corpuscular Volume 88.1 fL (80.0-100.0); Platelet Count 276 K/uL (130-400); RDW Standard Deviation 44.5 fL (36.4-46.3); Red Blood Count 4.44 M/uL (4.20-5.40); White Blood Count 12.64 K/ul (4.8-10.8)
--- NOTE | 2024-11-19 14:04 | Hospitalist Progress Note ---
Date of Service November 19, 2024 Assessment & Plan (1) Stroke-like symptoms: Plan: Stroke alert was called on November 17. Aspirin 81 mg has been added to the regimen. [address] scans were negative for hemorrhage or evidence of acute CVA. 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 No ASD seen on cardiac echo bubble study. She also takes Xarelto chronically. Highly unlikely her current CVA represents embolic stroke. Probably microvascular disease from underlying atherosclerosis causing the ischemic right medulla CVA. Continue OT and PT. Supportive care (2) Viral illness: Plan: Supportive care. IV fluids have been discontinued. Continue parenteral steroid therapy. (3) Acute metabolic encephalopathy: Plan: Present on admission. Now resolved (4) Hyponatremia: Plan: Now resolved. Sodium 127 on admission, improved to 135 with IV fluids. Serum osmolarity 274 on admission. Doubt SIADH (5) Chronic atrial fibrillation: Plan: With permanent cardiac pacemaker. Currently on Xarelto. Telemetry. Rate control measures (6) Chronic kidney disease, stage III (moderate): Plan: Monitor intake and output. Serial labs (7) Acute diastolic CHF (congestive heart failure): Plan: Suspected. This probably accounts for the appearance of the chest x-ray which is consistent with pulmonary vascular congestion. She responded nicely to the parenteral Lasix given yesterday, November 18 which will be repeated today, November 19. Cardiac echo reveals mild LVH with normal ejection fraction and mild to moderate mitral regurgitation. No ASD seen. Plan Discharge to [facility]PR or SNF when arrangements are finalized. Hopefully within the next day or 2 Admission and Anticipated Discharge Date Admission Date: November 16, 2024 Subjective Alert and oriented. She had significant diuresis from the parenteral Lasix administered yesterday, November 18. She states her breathing is improved. She is still requiring 3 L of oxygen per nasal cannula. Will repeat parenteral Lasix again today, November 19. Cardiac echo was done today, November 19, which reveals mild LVH with normal systolic function. Mild to moderate mitral regurgitation noted. She has evidence of diastolic dysfunction and no sign of ASD on bubble study. I suspect she has an element of diastolic CHF contributing to her current symptoms. Her chest x-ray reveals pulmonary vascular congestion and chest x-ray will be repeated tomorrow, November 20. Review of Systems 2 Review of Systems: Constitutionalno fever or chills ENTno blurred vision, no double vision, no epistaxis, no sore throat Respiratoryno cough, no wheezing, no shortness of breath Cardiacno palpitations, no chest pain, no syncope Luana nausea, vomiting, diarrhea, melena, hematochezia GUno urinary retention, no urinary incontinence, no dysuria, no hematuria Musculoskeletalno joint pain, no muscle tenderness Skinno bruising, no rashes, no pruritus Neuroleft-sided weakness. Mild dysarthria. Psychno depression, no anxiety Physical Exam 2 Physical Exam: General-alert and oriented x3, no fever, no chills HEENT-head atraumatic and normocephalic, pupils equal and reactive to light, extraocular muscles intact Neck-no lymphadenopathy or thyromegaly, trachea midline Chest-clear to auscultation. No rales, wheezing or rhonchi Cardiac-regular rate and rhythm, normal S1 and S2 Abdomen-normal bowel sounds, no hepatosplenomegaly Extremities-no cyanosis, clubbing, or edema Neuro-cranial nerves II through XII intact. She has left-sided weakness more pronounced in the left arm than the left the leg. Mild dysarthria has improved. Psych-depressed affect Results & Data Results & Data Vital Signs (Past 12 Hours) Vital Signs Temp Pulse Resp BP Pulse Ox O2 Del Method O2 Flow Rate 11/19/24 12:49 96 2 11/19/24 12:23 36.6 C 61 20 137/75 95 Nasal Cannula 3 11/19/24 11:40 65 18 95 Nasal Cannula 3 11/19/24 11:04 95 11/19/24 07:36 64 18 96 Nasal Cannula 3 11/19/24 07:31 36.7 C 69 20 155/81 H 97 Nasal Cannula 3 11/19/24 07:30 Nasal Cannula 2 11/19/24 03:36 36.5 C 68 18 154/82 H 92 Nasal Cannula 2 Laboratory Results 11/19/24 05:58 11/19/24 05:58 PG Care Time/CCT Total # of Minutes Spent Total Time Spent with Patient: Total time spent is greater than 50% in coordination of care (as documented) at patient's floor/unit and/or counseling patient: Coding Level of Care Code 36000 SUB INP/OBS CARE 3/50MIN Diagnoses Stroke-like symptoms R29.90 Viral illness B34.9 Acute metabolic encephalopathy G93.41 Hyponatremia E87.1 Chronic atrial fibrillation I48.20 Chronic kidney disease, stage III (moderate) N18.30 Acute diastolic CHF (congestive heart failure) I50.31
[2024-11-19] MEDS: FUROSEMIDE 40 MG/4 ML VIAL IV ONE (14:23)
[2024-11-19] MEDS: ACETAMINOPHEN 325 MG TAB PO PRN (15:56)
[2024-11-20 06:42] LABS: Hematocrit (blood only) 40.4 % (37.0-47.0); Hemoglobin 13.9 g/dl (12.0-16.0); Immature Granulocytes # (auto) 0.25 K/uL (0.01-0.20); Immature Granulocytes % (auto) 2.3 %; Mean Corpuscular Hemoglobin 30.2 pg (25.0-34.0); Mean Corpuscular Volume 87.8 fL (80.0-100.0); Platelet Count 289 K/uL (130-400); RDW Standard Deviation 43.9 fL (36.4-46.3); Red Blood Count 4.60 M/uL (4.20-5.40); White Blood Count 11.03 K/ul (4.8-10.8)
[2024-11-20 07:13] LABS: Anion Gap 13.0 (3-11); Blood Urea Nitrogen 60.0 mg/dl (6-23); Calcium 9.8 mg/dl (8.6-10.3); Carbon Dioxide 25.0 mmol/L (21-32); Chloride 101.0 mmol/L (98-107); Creatinine Clr Calc Pharmacy 33.1 ml/min; Glucose 141.0 mg/dl (70-99(Fasting)); Potassium 4.2 mmol/L (3.5-5.1); Sodium 139.0 mmol/L (136-145)
--- NOTE | 2024-11-20 08:19 | XRay Report ---
EXAM: XR chest 1V portable CLINICAL HISTORY: Pulmonary vascular congestion TECHNIQUE: An X-ray image of the chest was obtained in the AP projection. COMPARISON: 11/18/2024. FINDINGS: Pulmonary Parenchyma: Exaggerated bronchovascular markings are present bilaterally, with upper lobe vessel diversion. Mild atelectasis of the left lower lung lobe is noted, with mild blunting of the left costophrenic angle. There is no evidence of consolidation, collapse, or focal opacities. No pulmonary nodules are identified. There is no evidence of right pleural effusion or pleural thickening. Heart and Mediastinum: The heart size is enlarged. No mediastinal widening or masses are seen. No hilar or mediastinal lymphadenopathy is present. There is a left-sided pacemaker with intact leads. Bony Thorax: The bony thorax appears intact without fractures or deformities. Soft Tissues: The soft tissues overlying the chest wall are unremarkable. IMPRESSION: 1. No significant interval changes. 2. Stationary cardiomegaly, pulmonary congestion, and a pacemaker. 3. Stationary mild atelectasis of the left lower lung lobe with mild blunting of the left costophrenic angle. 4. No acute cardiopulmonary abnormalities are identified. Electronically signed by Jeffrey Kruger 11-20-2024 08:18 AM
[2024-11-20] MEDS: FUROSEMIDE 40 MG TAB PO SCH (10:44)
--- NOTE | 2024-11-20 15:18 | Hospitalist Progress Note ---
Date of Service November 20, 2024 Assessment & Plan (1) Stroke-like symptoms: Plan: Stroke alert was called on November 17. Aspirin 81 mg has been added to the regimen. [address] scans were negative for hemorrhage or evidence of acute CVA. 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 No ASD seen on cardiac echo bubble study. She also takes Xarelto chronically. Highly unlikely her current CVA represents embolic stroke. Probably microvascular disease from underlying atherosclerosis causing the ischemic right medulla CVA. Continue OT and PT. Supportive care (2) Viral illness: Plan: Now resolved. Supportive care. IV fluids have been discontinued. Parenteral steroid therapy has been discontinued (3) Acute metabolic encephalopathy: Plan: Present on admission. Now resolved (4) Hyponatremia: Plan: Now resolved. Sodium 127 on admission. Now normalized to 139. Serum osmolarity 274 on admission. Doubt SIADH (5) Chronic atrial fibrillation: Plan: With permanent cardiac pacemaker. Currently on Xarelto. Telemetry. Rate control measures (6) Chronic kidney disease, stage III (moderate): Plan: Monitor intake and output. Serial labs (7) Acute diastolic CHF (congestive heart failure): Plan: Suspected. This probably accounted for the appearance of the chest x-ray which is consistent with pulmonary vascular congestion. She responded nicely to the parenteral Lasix given on November 18 and . Switch to oral Lasix therapy on a daily basis today, November 20. Cardiac echo reveals mild LVH with normal ejection fraction and mild to moderate mitral regurgitation. No ASD seen. Plan Discharge to [facility] hopefully November 22. Admission and Anticipated Discharge Date Admission Date: November 16, 2024 Subjective Alert and oriented. No new problems. Chest x-ray done today, November 20, reveals resolution of CHF. Oxygen saturation 99% on room air. IV Lasix switched to oral dosing. Sodium is now normal at 139. Cardiac echo with bubble study reveals normal ejection fraction with diastolic dysfunction, moderate mitral regurgitation, no evidence of shunt. Case management states that [facility] might to be able to take her on Saturday. She has received insurance approval. Review of Systems 2 Review of Systems: Constitutionalno fever or chills ENTno blurred vision, no double vision, no epistaxis, no sore throat Respiratoryno cough, no wheezing, no shortness of breath Cardiacno palpitations, no chest pain, no syncope Luana nausea, vomiting, diarrhea, melena, hematochezia GUno urinary retention, no urinary incontinence, no dysuria, no hematuria Musculoskeletalno joint pain, no muscle tenderness Skinno bruising, no rashes, no pruritus Neuroleft-sided weakness persists. Mild dysarthria appears to have resolved. Psychno depression, no anxiety Physical Exam 2 Physical Exam: General-alert and oriented x3, no fever, no chills HEENT-head atraumatic and normocephalic, pupils equal and reactive to light, extraocular muscles intact Neck-no lymphadenopathy or thyromegaly, trachea midline Chest-clear to auscultation. No rales, wheezing or rhonchi Cardiac-regular rate and rhythm, normal S1 and S2 Abdomen-normal bowel sounds, no hepatosplenomegaly Extremities-no cyanosis, clubbing, or edema Neuro-cranial nerves II through XII intact. She has left-sided weakness more pronounced in the left arm than the left the leg. Mild dysarthria has now resolved Psych-normal affect, normal mood Results & Data Results & Data Vital Signs (Past 12 Hours) Vital Signs Temp Pulse Pulse Resp BP Pulse Ox O2 Del Method 11/20/24 11:58 58 L 16 96 Room Air 11/20/24 11:56 Room Air 11/20/24 07:56 36.4 C L 70 16 160/93 H 99 Room Air 11/20/24 07:55 70 18 97 Nasal Cannula 11/20/24 07:23 63 11/20/24 05:40 36.4 C 71 20 149/75 H 93 Nasal Cannula O2 Flow Rate 11/20/24 11:58 11/20/24 11:56 11/20/24 07:56 11/20/24 07:55 2 11/20/24 07:23 11/20/24 05:40 2 Laboratory Results 11/20/24 06:05 11/20/24 06:05 PG Care Time/CCT Total # of Minutes Spent Total Time Spent with Patient: Total time spent is greater than 50% in coordination of care (as documented) at patient's floor/unit and/or counseling patient: Coding Level of Care Code 15124 SUB INP/OBS CARE 2/35MIN Diagnoses Stroke-like symptoms R29.90 Viral illness B34.9 Acute metabolic encephalopathy G93.41 Hyponatremia E87.1 Chronic atrial fibrillation I48.20 Chronic kidney disease, stage III (moderate) N18.30 Acute diastolic CHF (congestive heart failure) I50.31
--- NOTE | 2024-11-20 16:36 | Electrocardiogram Report ---
Test Reason : Blood Pressure : */* mmHG Vent. Rate : 60 BPM Atrial Rate : 60 BPM P-R Int : 172 ms QRS Dur : 128 ms QT Int : 470 ms P-R-T Axes : 51 27 -8 degrees QTcB Int : 470 ms Atrial-paced rhythm Right bundle branch block T wave abnormality, consider inferior ischemia Abnormal ECG When compared with ECG of 15-Nov-2024 13:15, (unconfirmed) Criteria for Inferior infarct are no longer Present Confirmed by Shiv Nicholson ([id number]) on 11/20/2024 4:36:22 PM Referred By: REFERRED SELF Confirmed By: Shiv Nicholson
[2024-11-21] MEDS ORDERED: IPRATROPIUM BROMIDE NEB SOLN 0.02% 0.5MG/2.5ML VIAL NEB PRN (08:38)
--- NOTE | 2024-11-21 08:52 | Electrocardiogram Report ---
Test Reason : Blood Pressure : */* mmHG Vent. Rate : 99 BPM Atrial Rate : 107 BPM P-R Int : * ms QRS Dur : 154 ms QT Int : 422 ms P-R-T Axes : * -45 118 degrees QTcB Int : 541 ms Ventricular-paced rhythm with retrograde conduction Abnormal ECG When compared with ECG of 16-Nov-2024 18:08, (unconfirmed) Electronic ventricular pacemaker has replaced Electronic atrial pacemaker Vent. rate has increased by 39 bpm Confirmed by Shiv Nicholson ([id number]) on 11/21/2024 8:51:30 AM Referred By: REFERRED SELF Confirmed By: Shiv Nicholson
--- NOTE | 2024-11-21 10:50 | Hospitalist Progress Note ---
Date of Service November 21, 2024 Assessment & Plan (1) Stroke-like symptoms: Plan: Stroke alert was called on November 17. Aspirin 81 mg has been added to the regimen. [address] scans were negative for hemorrhage or evidence of acute CVA. 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 No ASD seen on cardiac echo bubble study. She also takes Xarelto chronically. Highly unlikely her current CVA represents embolic stroke. Probably microvascular disease from underlying atherosclerosis causing the ischemic right medulla CVA. Continue OT and PT while hospitalized. Supportive care (2) Viral illness: Plan: Now resolved. Supportive care. IV fluids have been discontinued. Parenteral steroid therapy has been discontinued (3) Acute metabolic encephalopathy: Plan: Present on admission. Now resolved (4) Hyponatremia: Plan: Now resolved. Sodium 127 on admission. Now normalized . Serum osmolarity 274 on admission. Doubt SIADH (5) Chronic atrial fibrillation: Plan: With permanent cardiac pacemaker. Currently on Xarelto. Telemetry. Rate control measures (6) Chronic kidney disease, stage III (moderate): Plan: Monitor intake and output. Serial labs (7) Acute diastolic CHF (congestive heart failure): Plan: Suspected. This probably accounted for the appearance of the chest x-ray which is consistent with pulmonary vascular congestion. She responded nicely to the parenteral Lasix given on November 18 and . Switched to oral Lasix therapy on a daily basis on November 20. Cardiac echo reveals mild LVH with normal ejection fraction and mild to moderate mitral regurgitation. No ASD seen. Plan Discharge to [facility] hopefully November 22. Admission and Anticipated Discharge Date Admission Date: November 16, 2024 Subjective Alert and oriented. Case management states that [facility] could take the patient today but she prefers to be transferred there tomorrow. Her lungs are somewhat rhonchorous which leads me to believe that she might be aspirating from time to time. She is on diltiazem and amlodipine has been discontinued. Thyroid profile is normal. She remains on room air. Review of Systems 2 Review of Systems: Constitutionalno fever or chills ENTno blurred vision, no double vision, no epistaxis, no sore throat Respiratoryno cough, no wheezing, no shortness of breath Cardiacno palpitations, no chest pain, no syncope Luana nausea, vomiting, diarrhea, melena, hematochezia GUno urinary retention, no urinary incontinence, no dysuria, no hematuria Musculoskeletalno joint pain, no muscle tenderness Skinno bruising, no rashes, no pruritus Neuroleft-sided weakness persists. Mild dysarthria appears to have resolved. Psychno depression, no anxiety Physical Exam 2 Physical Exam: General-alert and oriented x3, no fever, no chills HEENT-head atraumatic and normocephalic, pupils equal and reactive to light, extraocular muscles intact Neck-no lymphadenopathy or thyromegaly, trachea midline Chest-clear to auscultation. No rales, wheezing or rhonchi Cardiac-regular rate and rhythm, normal S1 and S2 Abdomen-normal bowel sounds, no hepatosplenomegaly Extremities-no cyanosis, clubbing, or edema Neuro-cranial nerves II through XII intact. She has left-sided weakness more pronounced in the left arm than the left the leg. Mild dysarthria has now resolved Psych-normal affect, normal mood Results & Data Results & Data Vital Signs (Past 12 Hours) Vital Signs Temp Pulse Pulse Resp BP Pulse Ox O2 Del Method 11/21/24 08:15 36.5 C 69 18 154/81 H 92 Room Air 11/21/24 07:21 68 18 92 Room Air 11/21/24 07:15 68 11/21/24 03:42 36.5 C 73 16 143/77 H 93 Room Air 11/20/24 23:13 36.3 C L 73 16 146/73 H 92 Room Air Laboratory Results 11/20/24 06:05 11/20/24 06:05 PG Care Time/CCT Total # of Minutes Spent Total Time Spent with Patient: Total time spent is greater than 50% in coordination of care (as documented) at patient's floor/unit and/or counseling patient: Coding Level of Care Code 37748 SUB INP/OBS CARE 2/35MIN Diagnoses Stroke-like symptoms R29.90 Viral illness B34.9 Acute metabolic encephalopathy G93.41 Hyponatremia E87.1 Chronic atrial fibrillation I48.20 Chronic kidney disease, stage III (moderate) N18.30 Acute diastolic CHF (congestive heart failure) I50.31
[2024-11-21 15:25] VITALS: RESP 16
--- NOTE | 2024-11-22 09:58 | Discharge Summary ---
Discharge Summary Date of Service November 22, 2024 Principal Dx & Hospital Course #1 = Principal Diagnosis (1) Stroke-like symptoms: Stroke alert was called on November 17. Aspirin 81 mg has been added to the regimen. [address] scans were negative for hemorrhage or evidence of acute CVA. 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 No ASD seen on cardiac echo bubble study. She also takes Xarelto chronically. Highly unlikely her current CVA represents embolic stroke. Probably microvascular disease from underlying atherosclerosis causing the ischemic right medulla CVA. Continue OT and PT while hospitalized. Supportive care (2) Viral illness: Now resolved. Supportive care. IV fluids have been discontinued. Parenteral steroid therapy has been discontinued (3) Acute metabolic encephalopathy: Present on admission. Now resolved (4) Hyponatremia: Now resolved. Sodium 127 on admission. Now normalized . Serum osmolarity 274 on admission. Doubt SIADH (5) Chronic atrial fibrillation: With permanent cardiac pacemaker. Currently on Xarelto. Telemetry. Rate control measures (6) Chronic kidney disease, stage III (moderate): Monitor intake and output. Serial labs (7) Acute diastolic CHF (congestive heart failure): Suspected. This probably accounted for the appearance of the chest x-ray which is consistent with pulmonary vascular congestion. She responded nicely to the parenteral Lasix given on November 18 and . Switched to oral Lasix therapy on a daily basis on November 20. Cardiac echo reveals mild LVH with normal ejection fraction and mild to moderate mitral regurgitation. No ASD seen. Plan Discharge to [facility] today, November 22. Admission HPI Per Admitting Provider 84-year-old female PMHx A-fib on rivaroxaban, h/o breast cancer, HTN, HLD, CKD stage II, valvular disease/MR, RA, vitamin D deficiency, and osteopenia presenting after recent ED visit and diagnosis of enterovirus/rhinovirus who is now presenting for worsening of symptoms with mainly increased weakness and cough. She did leave AMA after being recommended for admission on 11/15/2024. Presenting now for worsening weakness and difficulties with clearing congestion. These symptoms have been occurring for ~ 1 week [employer]. She recalls working on her flower bed when she started to have allergy-type symptoms that did not seem to improve over time. She was seen in the ED the day [employer] for the symptoms but felt that they would resolve. Returns the day of arrival given worsening weakness and SOB. States that she is coughing and having a clear mucus being produced. She does not have F/C. She admits also to URI symptoms, mainly rhinorrhea and nasal congestion. She is limited in what medications she can take given multiple drug interactions with her antiarrhythmic, Tikosyn, which she was started on in Mar after 4 cardiac ablations for Afib. She does have a pacer. She does state that the weakness has worsened to the extent that she felt she could not get out of bed the day of arrival. Her oral intake has been limited since becoming ill. She feels SOB at all times. No O2 at baseline. Denies CP, palpitations, abdominal pain, N/V/D/C, numbness/tingling, LUTS, syncope, or falls. ED evaluation reveals CBC without leukocytosis, stable H&H; CMP sodium 130, chloride 96, glucose 100; magnesium 2.1; troponin 5.6; TSH 1.743; BioFire positive for enterovirus/rhinovirus; CXR no acute pulmonary pathology, postop changes L chest wall intracardiac device, heart size measures up over normal; EKG atrial paced rhythm, RBBB, T wave abnormality at 60 bpm.; Provided with 1L NSS, methylprednisolone 125 mg IV, and albuterol 3 mL nebulized in ED. Please see Dr. Adams's attestation for adjustments/additions to treatment plan. Discharge Exam General-alert and oriented x3, no fever, no chills HEENT-head atraumatic and normocephalic, pupils equal and reactive to light, extraocular muscles intact Neck-no lymphadenopathy or thyromegaly, trachea midline Chest-clear to auscultation. No rales, wheezing or rhonchi Cardiac-regular rate and rhythm, normal S1 and S2 Abdomen-normal bowel sounds, no hepatosplenomegaly Extremities-no cyanosis, clubbing, or edema Neuro-cranial nerves II through XII intact. She has left-sided weakness more pronounced in the left arm than the left the leg. 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 Call non-emergency contact if: your symptoms worsen Follow-up/Referrals: Amy Hidalgo MD [Primary Care Provider] - Diet: Regular and Heart Healthy Addtl Attending Provider Instructions: See primary care provider and plant buyer as soon as possible after discharge from [facility] Pending Studies at Discharge: No Stand-Alone Forms: My [facility] Skilled Items Patient informed of condition?: Yes DNR: No Discharge Level of Care: Acute rehab Communicable Disease: No Discharge Prognosis: Stable Lines: None Urinary Catheter: No Medications and DC Order Prescriptions: New aspirin 81 mg Tablet,Delayed Release (Dr/Ec) 81 mg PO QAM Qty: 0 0RF furosemide 40 mg Tablet 40 mg PO DAILY Qty: 0 0RF acetaminophen 325 mg Tablet 650 mg PO Q4H PRN (Reason: fever or pain) Qty: 0 0RF Continued levothyroxine 25 mcg tablet 25 mcg PO DAILY Qty: 30 5RF rivaroxaban 15 mg tablet 15 mg PO HS Qty: 14 0RF diltiazem HCl 180 mg capsule,extended release 24hr 180 mg PO HS metoprolol tartrate 25 mg tablet 25 mg PO DAILY dofetilide [Tikosyn] 125 mcg capsule 125 mcg PO BID spironolactone 50 mg tablet 50 mg PO DAILY Discontinued amlodipine 10 mg tablet 5 mg PO DAILY Rx Instructions: last filled 04/2024 acetaminophen [Tylenol] 325 mg Tablet 650 mg PO DIRECTED PRN (Reason: Pain) furosemide 40 mg tablet 20 mg PO DAILY Discharge Orders: Discharge Order- CHF (Routine); Ordered 11/22/24 Ordered By: Eric Bro Admission Data Admit Date/Time: 11/16/24 22:14 Attending Provider: Eric Bro Admit Provider: Rachel Adams Primary Care Provider: Amy Hidalgo Other Providers: Rachel Adams; [facility] Hospital Stay Data Consultations 11/16/24 20:50 ED Decision to Admit Stat Diagnostic Imagining Performed 11/17/24 09:46 CT head/brain wo con Stat 11/17/24 14:[address] [CT head/brain wo con] Stat 11/18/24 16:37 MR brain wo con Urgent Pending Results Patient Have Any Pending Studies at Discharge: No Discharge Instructions Given to Patient (Per Discharging Provider) See primary care provider and plant buyer as soon as possible after discharge from [facility] Total Time Total Time Spent Total Time Spent (In Minutes): 45 minutes Coding Level of Care Code 04076 INP/OBS DISCH >30 MIN Diagnoses Stroke-like symptoms R29.90 Viral illness B34.9 Acute metabolic encephalopathy G93.41 Hyponatremia E87.1 Chronic atrial fibrillation I48.20 Chronic kidney disease, stage III (moderate) N18.30 Acute diastolic CHF (congestive heart failure) I50.31
[2024-11-22 11:35] VITALS: BP 129/77; TEMP 98.2; O2SAT 90
[2024-11-22 13:15] VITALS: PULSE 66
== END 2024-11-22 15:40 | DRG 64 ==
LOC: ED 16:41 → SUATTDRO 22:14 → EDINP 22:14 → 2W 23:35